=== PATIENT | male | born 1980 | race African-American/Black ===

== ENCOUNTER 2016-10-13 18:06 | Emergency (ER) | payer BC, OTHER ==
--- NOTE | 2016-10-13 20:09 | PHYS DOC ---
Past Medical History Past Medical History: Asthma, Diabetes-Type II Past Surgical History: Other Additional Past Surgical Histo: BACK SURGERY Alcohol Use: None Drug Use: None Adult General Chief Complaint Chief Complaint: OTHER COMPLAINTS [facility] HPI Patient is a 35 year old male who presents with pain and swelling of left foot and ankle over the past week since stepping on something and cutting his foot. He notes initial swelling to foot, but foot is no longer swollen. His ankle is now swollen. Pain is constant, mild. Swelling is worse with standing at work all day and better with elevation at night. He denies f/c, discoloration, numbness, tingling, weakness, wound drainage. Review of Systems Review of Systems Constitutional: Denies fever or chills [] Eyes: Denies change in visual acuity, redness, or eye pain [] HENT: Denies nasal congestion or sore throat [] Respiratory: Denies cough or shortness of breath [] Cardiovascular: No additional information not addressed in HPI [] GI: Denies abdominal pain, nausea, vomiting, bloody stools or diarrhea [] : Denies dysuria or hematuria [] Musculoskeletal: Denies back pain [] Integument: Denies rash or skin lesions [] Neurologic: Denies headache, focal weakness or sensory changes [] Endocrine: Denies polyuria or polydipsia [] Allergies Allergies Allergies Coded Allergies Type Severity Reaction Last Updated Verified No Known Drug Allergies 10/13/16 No Physical Exam Physical Exam Constitutional: Well developed, well nourished, no acute distress, non-toxic appearance. [] HENT: Normocephalic, atraumatic, bilateral external ears normal, oropharynx moist, nose normal. [] Eyes: PERRLA, EOMI. [] Neck: Normal range of motion, supple. [] Cardiovascular:Heart rate regular rhythm [] Lungs & Thorax: Bilateral breath sounds clear to auscultation [] Abdomen: Bowel sounds normal, soft, no tenderness. [] Skin: Warm, dry, no erythema, no rash. [] Back: No tenderness, no CVA tenderness. [] Extremities: LLE with no obvious deformity or discoloration; has 0.5cm laceration to left lateral plantar surface at MTP area with no fluctuance/ drainage/discoloration; has 2+ edema of ankle with no edema of foot with appropriate mild tenderness; Able to flex/ex/IR/ER hip, knee full rom, ankle df/ pf, toes df/pf; sensation intact to light touch; good dp and pt pulses equal bilaterally Neurologic: Alert and oriented X 3, normal motor function, normal sensory function, no focal deficits noted. [] Psychologic: Affect normal, judgement normal, mood normal. [] Current Patient Data Vital Signs Vital Signs Date Time Temp Pulse Resp B/P Pulse Ox O2 Delivery O2 Flow Rate FiO2 10/13/16 20:33 88 168/92 96 Room Air 10/13/16 20:03 22 10/13/16 18:35 98.0 98.0 Radiology/Procedures Radiology/Procedures US LLE venous IMPRESSION No evidence of left lower extremity deep vein thrombosis. Electronically signed by: Aleks Simmons MD (Oct 13, 2016 21:41:10) Course & Med Decision Making Course & Med Decision Making Pertinent Labs and Imaging studies reviewed. (See chart for details) Ultrasound unremarkable. Will treat for likely cellulitis. Return precautions given. He understands and agrees with plan. Dragon Disclaimer Dragon Disclaimer This electronic medical record was generated, in whole or in part, using a voice recognition dictation system. Departure Departure Impression: Primary Impression: Cellulitis Disposition: HOME, SELF-CARE Condition: STABLE Patient Instructions: Cellulitis, [id number] Additional Instructions: Take Bactrim for cellulitis. Take Tylenol or ibuprofen as needed for pain. Follow-up with your primary care doctor within one week. Return for any concerns. Bilateral Scripts Sulfamethoxazole/Trimethoprim (Bactrim Ds Tablet)1 Each Tablet1 Tab PO BID #20 TAB Prov:Danita VEGA MD 10/13/16 Problem Qualifiers Primary Impression: Cellulitis Site of cellulitis: extremity Site of cellulitis of extremity: lower extremity Laterality: left Qualified Code: L03.116 - Cellulitis of left lower limb Danita VEGA MD Oct 13, 2016 20:09
[2016-10-13 20:33] VITALS: BP 168/92
[2016-10-13] MEDS ORDERED: SULF1TAB24 PO (21:43)
--- NOTE | 2016-10-13 21:43 | RAD ---
PROCEDURE: Left Lower extremity venous Doppler ultrasound. HISTORY Cut bottom of foot 1 week ago. Left leg swelling and redness x3 days. COMPARISON None. TECHNIQUE Real-time grayscale, color flow, and Doppler spectral waveform analysis of the deep veins of the lower extremity/ies performed. FINDINGS All visualized vein segments demonstrate normal compressibility and augmentation and color flow. Color flow seen within calf veins. There are lymph nodes in the groin. The largest measures 3.8 x 3.1 x 1.8 cm. This lymph node has benign appearance and does not appear reactive. There is an 8 millimeter short axis diameter lymph node that appears reactive. IMPRESSION No evidence of left lower extremity deep vein thrombosis. Electronically signed by: Aleks Simmons MD (Oct 13, 2016 21:41:10)
== END 2016-10-13 21:56 | disposition home or self-care (01) ==
LOC: ER 18:06
DX: L03.116 Cellulitis of left lower limb (principal); E11.9 Type 2 diabetes mellitus without complications; J45.909 Unspecified asthma, uncomplicated
CPT/HCPCS: 82947; 93971; 99284-25

== ENCOUNTER 2017-06-07 14:22 | Inpatient (IN) | payer BC, OTHER ==
[~2017-06-07] VITALS: Ht 190.5 cm; Wt 150.1 kg
[~2017-06-07 14:22] MED LIST: SULF1TAB24 PO
--- NOTE | 2017-06-07 14:59 | PHYS DOC ---
Past Medical History Past Medical History: Asthma, Diabetes-Type II Past Surgical History: Other Additional Past Surgical Histo: BACK SURGERY Alcohol Use: None Drug Use: None Adult General Chief Complaint Chief Complaint: SHORTNESS OF BREATH HPI HPI Patient is a 36 year old M who presents with chest pain shortness of breath naproxen 4 hours ago. Patient states he stepped on a nail and developed a local wound infection is currently in a cam boot and complains of left calf pain and left thigh pain. Patient states he was driving developed severe shortness of breath and chest pain and cannot catch his breath. Patient is a history of asthma but states she's not wheezing. Patient denies any fevers. Patient denies any nausea/vomiting/diarrhea. Patient is no other complaints. Review of Systems Review of Systems GEN: Denies fevers, chills, sweats HEENT: Denies blurred vision, sore throat CV: Chest pain RESP: Shortness of air GI: Denies n/v/d NEURO: Denies confusion, dizziness MSK: Denies weakness, joint pain/swelling All other systems were reviewed and found to be within normal limits, except as documented in this note. Current Medications Current Medications Current Medications Medications (Trade) Dose Ordered Sig/Mike Start Time Stop Time Status Last Admin Dose Admin Acetaminophen (Tylenol) 650 mg PRN Q4HRS PRN 06/07/17 18:15 06/08/17 18:14 Fentanyl Citrate (Fentanyl 2ml Vial) 50 mcg PRN Q1HR PRN 06/07/17 18:15 06/08/17 18:14 Ibuprofen (Motrin) 800 mg 1X ONCE 06/07/17 16:45 06/07/17 16:48 DC 06/07/17 16:45 800 MG Iohexol (Omnipaque 300 Mg/ml) 75 ml 1X ONCE 06/07/17 17:00 06/07/17 17:03 DC Ondansetron HCl (Zofran) 4 mg PRN Q8HRS PRN 06/07/17 18:15 06/08/17 18:14 Piperacillin Sod/ Tazobactam Sod (Zosyn Per Pharmacy) 1 each PRN DAILY PRN 06/07/17 17:00 UNV Piperacillin Sod/ Tazobactam Sod (Zosyn) 3.375 gm 1X ONCE 06/07/17 17:15 06/07/17 17:16 DC 06/07/17 17:44 3.375 GM Sodium Chloride 1,000 ml @ 125 mls/hr Q8H 06/07/17 18:12 06/08/17 18:11 Vancomycin HCl (Vanco Per Pharmacy) 1 each PRN DAILY PRN 06/07/17 17:00 UNV Vancomycin HCl 2 gm/Dextrose 500 ml @ 250 mls/hr 1X ONCE 06/07/17 17:30 06/07/17 19:29 06/07/17 17:47 250 MLS/HR Allergies Allergies Allergies Coded Allergies Type Severity Reaction Last Updated Verified shellfish derived Allergy Severe Anaphylaxis 06/07/17 Yes Physical Exam Physical Exam GEN.: mod distress. Alert and oriented. HEENT: Head is normocephalic, atraumatic NECK: Supple. LUNGS: Decreased breath sounds bilaterally HEART: Tachycardia, S1, S2 present. Peripheral pulses intact ABDOMEN: Soft, nontender. Positive bowel sounds. EXTREMITIES: Without any cyanosis, tenderness palpation the left calf NEUROLOGIC: Normal speech, normal tone PSYCHIATRIC: Normal affect, normal mood. SKIN: Left foot ulcer on the plantar surface Current Patient Data Vital Signs Vital Signs Date Time Temp Pulse Resp B/P (MAP) Pulse Ox O2 Delivery O2 Flow Rate FiO2 06/07/17 17:30 104 21 164/84 (110) 96 Room Air 06/07/17 14:30 101.0 101.0 Lab Values Laboratory Tests Test 06/07/17 15:45 White Blood Count 13.1 x10^3/uL (4.0-11.0) H Red Blood Count 5.18 x10^6/uL (4.30-5.70) Hemoglobin 13.1 g/dL (13.0-17.5) Hematocrit 40.5 % (39.0-53.0) Mean Corpuscular Volume 78 fL (79-100) L Mean Corpuscular Hemoglobin 25 pg (25-35) Mean Corpuscular Hemoglobin Concent 32 g/dL (31-37) Red Cell Distribution Width 13.6 % (11.5-14.5) Platelet Count 264 x10^3/uL (140-400) Neutrophils (%) (Auto) 85 % (31-73) H Lymphocytes (%) (Auto) 8 % (24-48) L Monocytes (%) (Auto) 6 % (0-9) Eosinophils (%) (Auto) 1 % (0-3) Basophils (%) (Auto) 1 % (0-3) Neutrophils # (Auto) 11.1 x10^3uL (1.8-7.7) H Lymphocytes # (Auto) 1.0 x10^3/uL (1.0-4.8) Monocytes # (Auto) 0.8 x10^3/uL (0.0-1.1) Eosinophils # (Auto) 0.1 x10^3/uL (0.0-0.7) Basophils # (Auto) 0.1 x10^3/uL (0.0-0.2) Sodium Level 135 mmol/L (136-145) L Potassium Level 3.6 mmol/L (3.5-5.1) Chloride Level 98 mmol/L (98-107) Carbon Dioxide Level 26 mmol/L (21-32) Anion Gap 11 (6-14) Blood Urea Nitrogen 14 mg/dL (8-26) Creatinine 1.1 mg/dL (0.7-1.3) Estimated GFR (Cockcroft-Gault) 91.6 BUN/Creatinine Ratio 13 (6-20) Glucose Level 197 mg/dL (70-99) H Lactic Acid Level 1.4 mmol/L (0.4-2.0) Calcium Level 9.9 mg/dL (8.5-10.1) Total Bilirubin 0.6 mg/dL (0.2-1.0) Aspartate Amino Transferase (AST) 14 U/L (15-37) L Alanine Aminotransferase (ALT) 27 U/L (16-63) Alkaline Phosphatase 103 U/L (46-116) Troponin I Quantitative < 0.017 ng/mL (0.000-0.055) Total Protein 8.9 g/dL (6.4-8.2) H Albumin 3.3 g/dL (3.4-5.0) L Albumin/Globulin Ratio 0.6 (1.0-1.7) L Laboratory Tests 06/07/17 15:45 Laboratory Tests 06/07/17 15:45 EKG EKG 1430: Sinus tachycardia rate of 109 no STEMI[] Radiology/Procedures Radiology/Procedures Chest ray NAD X-ray left foot shows no obvious fracture no ostial involvement Sounds left lower extremity shows no DVT CTA chest: No PE Course & Med Decision Making Course & Med Decision Making Pertinent Labs and Imaging studies reviewed. (See chart for details) ED course: Patient was seen and examined emergency room septic workup was ordered along with an ultrasound of the left lower extremity and a CTA of the chest 1800: Updated patient on lab results and radiology results and plan to admit for further evaluation and management of infection in his left foot for possible ostium myelitis 181: Discussed CC/HP/PMH with Dr. Francis and recommends admit [] MDM: After reviewing the chart, CC/HPI/PMH, physical exam, [lab results], [ radiological results], I do not believe the patient has an acute DVT or PE however I believe he potentially has a severe left foot cellulitis and infection and possible osteomyelitis requiring IV antibiotics and admission to hospital for further evaluation and management. [] Dragon Disclaimer Dragon Disclaimer This electronic medical record was generated, in whole or in part, using a voice recognition dictation system. Departure Departure Impression: Primary Impression: Cellulitis of left lower leg Additional Impression: Foot ulcer, left Disposition: ADMITTED INPATIENT Admitting Physician: Fara Francis Condition: STABLE Referrals: NO PCP (PCP) Problem Qualifiers STEFAN LEWIS DO Jun 07, 2017 14:58
[2017-06-07] MEDS ORDERED: IV NORMAL SALINE 1000ML BAG 1,000 ML IV ONE (15:00)
--- NOTE | 2017-06-07 15:12 | RAD ---
Portable chest, 06/07/2017: History: Shortness of breath, fever Comparison is made to a study from 11/07/2011. The depth of inspiration is suboptimal. The heart size and pulmonary vascularity are normal. The lungs are clear. There is no evidence of pleural fluid. IMPRESSION: No acute cardiopulmonary abnormality is detected.
--- NOTE | 2017-06-07 15:15 | EKG ---
[facility] [address] [place] [address] Test Date: 2017-06-07 Test Time: 14:25:34 Pat Name: BAILEY JOHNSON Department: Room: Gender: M National Sales Manager: : 1980 Requested By: STEFAN LEWIS Order Number: [id number] Reading MD: Jaun Moncada MD Measurements Intervals [place] Rate: 109 P: 26 DE: 160 QRS: -4 QRSD: 82 T: 31 QT: 304 QTc: 411 Interpretive Statements SINUS TACHYCARDIA Electronically Signed On 06-07-2017 16:08:21 DISTRICT [employer]ANGER by Jaun Moncada MD
--- NOTE | 2017-06-07 15:46 | RAD ---
Left lower extremity venous ultrasound, 06/07/2017 : History: Left leg swelling and pain with fever Duplex evaluation including grayscale, color flow and spectral Doppler analysis was performed. The femoral and popliteal veins show no filling defects to suggest DVT. The visualized calf veins are unremarkable. There are prominent lymph nodes at the left groin. The largest of these measures 1.5 x 2.3 x 4.6 cm. It has maintained a normal fatty hilum. This may be a reactive node. IMPRESSION: 1. There is no sonographic evidence of deep vein thrombosis in the left lower extremity. 2. Mildly left inguinal adenopathy.
[2017-06-07 15:51] LABS: BASO # 0.1 x10^3/uL (0.0-0.2); BASO % 1 % (0-3); EOS % 1 % (0-3); HEMATOCRIT 40.5 % (39.0-53.0); HEMOGLOBIN 13.1 g/dL (13.0-17.5); LYMPH % 8 % (24-48); MEAN CORPUSCULAR HEMOGLOBIN 25 pg (25-35); MEAN CORPUSCULAR HGB CONC 32 g/dL (31-37); MEAN CORPUSCULAR VOLUME 78 fL (79-100); MONO % 6 % (0-9); NEUT % 85 % (31-73); PLATELET COUNT 264 x10^3/uL (140-400); RED BLOOD COUNT 5.18 x10^6/uL (4.30-5.70); RED CELL DISTRIBUTION WIDTH 13.6 % (11.5-14.5); WHITE BLOOD COUNT 13.1 x10^3/uL (4.0-11.0)
[2017-06-07 16:25] LABS: CALCIUM 9.9 mg/dL (8.5-10.1); CREATININE 1.1 mg/dL (0.7-1.3); GFR 91.6; POTASSIUM 3.6 mmol/L (3.5-5.1)
[2017-06-07 16:33] LABS: ALBUMIN 3.3 g/dL (3.4-5.0); ALBUMIN/GLOBULIN RATIO 0.6 (1.0-1.7); TOTAL BILIRUBIN 0.6 mg/dL (0.2-1.0); TOTAL PROTEIN 8.9 g/dL (6.4-8.2)
[2017-06-07] MEDS ORDERED: IBUPROFEN 800 MG TABLET. PO ONE (16:45)
[2017-06-07] MEDS ORDERED: PIP/TAZO PER PHARMACY MC PRN (17:00)
[2017-06-07] MEDS ORDERED: IOHEXOL 300 MG/ML 100ML VIAL. IV ONE (17:00)
[2017-06-07] MEDS ORDERED: PIPERACILLIN/TAZO IV Push 3.375 GM VIAL. IVP ONE (17:15)
[2017-06-07] MEDS ORDERED: VANCOMYCIN 2 GM in IV DEXTROSE 5% 500 ML IV ONE (17:30)
--- NOTE | 2017-06-07 18:04 | RAD ---
CT ANGIOGRAPHY CHEST dated 06/07/2017 5:11 PM Indication: Shortness of breath, possible pulmonary embolusSOA, ASTHMA, MUPT100 75ML, PRIOR CT CHEST SENT. Comparison: 11/05/2004 Technique: Contiguous axial imaging the chest performed following the intravenous administration of 75 cc Omnipaque 300. Study performed as dedicated PE protocol with thin cut coronal MIPS 3-D reconstruction. One or more of the following individualized dose reduction techniques were utilized for this examination: 1. Automated exposure control 2. Adjustment of the mA and/or kV according to patient size 3. Use of iterative reconstruction technique Findings: Study is somewhat limited due to motion artifact and diminished contrast bolus. No evidence of central, lobar or proximal segmental pulmonary was. Distal segmental and subsegmental branches are not well evaluated based on technique. Heart size within normal limits. No significant pericardial effusion. No mediastinal, hilar or axillary lymphadenopathy. Thyroid gland unremarkable. Central airways are patent. Mild diffuse bronchial wall thickening. There is some linear density in the right lower lobe, likely scar or atelectasis. No pleural effusion. No consolidation or pneumothorax. Limited images of upper abdomen unremarkable. No acute bony abnormality. IMPRESSION: 1. No evidence of central, lobar or proximal segmental pulmonary embolus. 2. Minimal bibasilar scar or atelectasis. Otherwise clear lungs. Electronically signed by: Sharan Medina MD (06/07/2017 6:01 PM) [facility]
[2017-06-07] MEDS ORDERED: fentaNYL PF VIAL 100 MCG/2 ML VIAL IV PRN (18:15)
[2017-06-07] MEDS ORDERED: ACETAMINOPHEN 325 MG TABLET. PO PRN (18:15)
[2017-06-07] MEDS ORDERED: ONDANSETRON PF 4 MG/2 ML VIAL. IV PRN (18:15)
[2017-06-07] MEDS ORDERED: DEXTROSE 50% 25 GM / 50ML DISP.SYRIN. IV PRN (19:15)
[2017-06-07] MEDS: VANCOMYCIN PER PHARMACY MC PRN (19:17)
--- NOTE | 2017-06-07 19:20 | PDOC1 ---
History and Physical Date of Admission Date of Admission DATE: 06/07/17 TIME: 19:07 Identification/Chief Complaint Chief Complaint foot pain, drainage Problems: Source Source: Chart review, Patient History of Present Illness History of Present Illness Mr Geiger is a 36 year old M first seen here in ER 10/13/16 for cellulitis to left foot after an injury, stepped on a nail. Sent home with 10 days of bactrim, given a cam boot and followed in wound care clininc He reports surgical debridement by a doctor in the wound care clinic, and repeated follow up visits, he uses the foot, but wears the cam boot as he was directed, but he has broken one before due to his size, 340lbs today he has new drainage from the foot wound, new left foot redness and swelling up his leg. severe pain to lower leg and up to thigh and groin area. acute dyspnea on admit was marked, and ER doctor did a CT angio with showed no PE, no wheeze, no fever until here T 101 Patient denies any nausea/vomiting/diarrhea. Patient is no other complaints. Past Medical History Cardiovascular: HTN Pulmonary: No pertinent hx GI: No pertinent hx Heme/Onc: No pertinent hx Hepatobiliary: No pertinent hx Psych: No pertinent hx Rheumatologic: No pertinent hx Infectious disease: No pertinent hx Renal/: No pertinent hx Endocrine: Diabetes Dermatology: Cellulitis (foot 10/13/16) Past Surgical History Past Surgical History: No pertinent history Family History Family History: No Significant Social History Smoke: No ALCOHOL: none Drugs: None Current Problem List Problem List Problems Medical Problems: (1) Foot ulcer, left Status: Acute Problems: Current Medications Current Medications Current Medications Sodium Chloride 1,000 ml @ 1,000 mls/hr 1X ONCE IV Last administered on 06/07 16:11; Start 06/07/17 at 15:00; Stop 06/07/17 at 15:59; Status DC Ibuprofen (Motrin) 800 mg 1X ONCE PO Last administered on 06/07/17 16:45; Start 06/07/17 at 16:45; Stop 06/07/17 at 16:48; Status DC Iohexol (Omnipaque 300 Mg/ml) 75 ml 1X ONCE IV ; Start 06/07/17 at 17:00; Stop 06/07/17 at 17:03; Status DC Vancomycin HCl (Vanco Per Pharmacy) 1 each PRN DAILY PRN MC SEE COMMENTS; Start 06/07/17 at 17:00; Status UNV Piperacillin Sod/ Tazobactam Sod (Zosyn Per Pharmacy) 1 each PRN DAILY PRN MC SEE COMMENTS; Start 06/07/17 at 17:00; Status UNV Vancomycin HCl 2 gm/Dextrose 500 ml @ 250 mls/hr 1X ONCE IV Last administered on 06/07/17t 17:47; Start 06/07/17 at 17:30; Stop 06/07/17 at 19 :29 Piperacillin Sod/ Tazobactam Sod (Zosyn) 3.375 gm 1X ONCE IVP Last administered on 06/07/17t 17:44; Start 06/07/17 at 17:15; Stop 06/07/17 at 17 :16; Status DC Ondansetron HCl (Zofran) 4 mg PRN Q8HRS PRN IV NAUSEA/VOMITING; Start at 18:15; Stop 06/08/17 at 18:14 Fentanyl Citrate (Fentanyl 2ml Vial) 50 mcg PRN Q1HR PRN IV PAIN; Start at 18:15; Stop 06/08/17 at 18:14 Sodium Chloride 1,000 ml @ 125 mls/hr Q8H IV ; Start 06/07/17 at 18:12; Stop 06/08/17 at 18:11 Acetaminophen (Tylenol) 650 mg PRN Q4HRS PRN PO FEVER; Start 06/07/17 at 18:15 ; Stop 06/08/17 at 18:14 Albuterol Sulfate (Ventolin Neb Soln) 2.5 mg QID NEB ; Start 06/07/17 at 21:00 Budesonide (Pulmicort) 0.5 mg BID NEB ; Start 06/07/17 at 21:00 Active Scripts Active Bactrim Ds Tablet (Sulfamethoxazole/Trimethoprim) 1 Each Tablet 1 Tab PO BID Allergies Allergies: Coded Allergies: shellfish derived (Verified Allergy, Severe, Anaphylaxis, 06/07/17) ROS General: YES: Chills, Fatigue, Malaise, No: Night Sweats, Appetite, Other PSYCHOLOGICAL ROS: No: Anxiety, Behavioral Disorder, Concentration difficultie , Decreased libido, Depression, Disorientation, Hallucinations, Hostility, Irritablity, Memory difficulties, Mood Swings, Obsessive thoughts, Other Eyes: No Blurry vision, No Decreased vision, No Double vision, No Dry eyes, No Excessive tearing, No Eye Pain, No Itchy Eyes, No Loss of vision, No Photophobia , No Scotomata, No Uses contacts, No Uses glasses, No Other HEENT: No: Heacaches, Visual Changes, Hearing change, Nasal congestion, Nasal discharge, Oral lesions, Sinus pain, Sore Throat, Epistaxis, Sneezing, Snoring, Tinnitus, Vertigo, Vocal changes, Other ENDOCRINE: No: Breast Changes, Galactorrhea, Hair Pattern Changes, Hot Flashes , Malaise/lethargy, Mood Swings, Palpitations, Polydipsia/polyuria, Skin Changes , Temperature Intolerance, Unexpected Weight Changes, Other Respiratory: YES: Shortness of breath, SOB with excertion, Tachypnea, No: Cough, Hemoptysis, Orthopnea, Pleuritic Pain, Sputum Changes, Stridor, Wheezing, Other Cardiovascular: No Chest Pain, No Palpitations, No Orthopnea, No Paroxysmal Noc. Dyspnea, No Edema, No Lt Headedness, No Other Gastrointestinal: No Nausea, No Vomiting, No Abdominal Pain, No Diarrhea, No Constipation, No Melena, No Hematochezia, No Other Genitourinary: No Dysuria, No Frequency, No Incontinence, No Hematuria, No Retention, No Discharge, No Urgency, No Pain, No Flank Pain, No Other, No , No , No , No , No , No , No Musculoskeletal: Yes Gait Disturbance, Yes Joint Pain, Yes Joint Stiffness, Yes Pain In: (foot and leg) Neurological: Yes Gait Disturbance, No Behavorial Changes, No Bowel/Bladder ControlChng, No Confusion, No Dizziness, No Headaches, No Impaired Coord/balance, No Memory Loss, No Numbness/ Tingling, No Seizures, No Speech Problems, No Tremors, No Visual Changes, No Weakness, No Other Skin: No Dry Skin, No Eczema, No Hair Changes, No Lumps, No Mole Changes, No Mottling, No Nail Changes, No Pruritus, No Rash, No Skin Lesion Changes, No Other, No Acne Physical Exam General: Alert, Oriented X3, Cooperative, mild distress HEENT: Mucous membr. moist/pink Lungs: Clear to auscultation, Normal air movement Heart: S1S2, RRR, no gallops, no murmurs Abdomen: Normal bowel sounds, Soft (mildly obese, ) Rectal Exam: not examined Extremities: No clubbing, No cyanosis, Normal pulses, Other (1+ edema, LLE, ) Skin: Other (plantar foot with open area of prior debridement with small hole in lateral area of plantar aspect of foot, erythema and tenderness) Neuro: Normal speech, Sensation intact, Cranial nerves 3-12 NL Psych/Mental Status: Mental status NL, Mood NL Vitals Vitals Vital Signs Date Time Temp Pulse Resp B/P (MAP) Pulse Ox O2 Delivery O2 Flow Rate FiO2 06/07/17 17:30 104 21 164/84 (110) 96 Room Air 06/07/17 14:30 101.0 101.0 Labs Labs Laboratory Tests Test 06/07/17 15:45 White Blood Count 13.1 x10^3/uL (4.0-11.0) Red Blood Count 5.18 x10^6/uL (4.30-5.70) Hemoglobin 13.1 g/dL (13.0-17.5) Hematocrit 40.5 % (39.0-53.0) Mean Corpuscular Volume 78 fL (79-100) Mean Corpuscular Hemoglobin 25 pg (25-35) Mean Corpuscular Hemoglobin Concent 32 g/dL (31-37) Red Cell Distribution Width 13.6 % (11.5-14.5) Platelet Count 264 x10^3/uL (140-400) Neutrophils (%) (Auto) 85 % (31-73) Lymphocytes (%) (Auto) 8 % (24-48) Monocytes (%) (Auto) 6 % (0-9) Eosinophils (%) (Auto) 1 % (0-3) Basophils (%) (Auto) 1 % (0-3) Neutrophils # (Auto) 11.1 x10^3uL (1.8-7.7) Lymphocytes # (Auto) 1.0 x10^3/uL (1.0-4.8) Monocytes # (Auto) 0.8 x10^3/uL (0.0-1.1) Eosinophils # (Auto) 0.1 x10^3/uL (0.0-0.7) Basophils # (Auto) 0.1 x10^3/uL (0.0-0.2) Sodium Level 135 mmol/L (136-145) Potassium Level 3.6 mmol/L (3.5-5.1) Chloride Level 98 mmol/L (98-107) Carbon Dioxide Level 26 mmol/L (21-32) Anion Gap 11 (6-14) Blood Urea Nitrogen 14 mg/dL (8-26) Creatinine 1.1 mg/dL (0.7-1.3) Estimated GFR (Cockcroft-Gault) 91.6 BUN/Creatinine Ratio 13 (6-20) Glucose Level 197 mg/dL (70-99) Lactic Acid Level 1.4 mmol/L (0.4-2.0) Calcium Level 9.9 mg/dL (8.5-10.1) Total Bilirubin 0.6 mg/dL (0.2-1.0) Aspartate Amino Transf (AST/SGOT) 14 U/L (15-37) Alanine Aminotransferase (ALT/SGPT) 27 U/L (16-63) Alkaline Phosphatase 103 U/L (46-116) Troponin I Quantitative < 0.017 ng/mL (0.000-0.055) Total Protein 8.9 g/dL (6.4-8.2) Albumin 3.3 g/dL (3.4-5.0) Albumin/Globulin Ratio 0.6 (1.0-1.7) Laboratory Tests Test 06/07/17 15:45 White Blood Count 13.1 x10^3/uL (4.0-11.0) Red Blood Count 5.18 x10^6/uL (4.30-5.70) Hemoglobin 13.1 g/dL (13.0-17.5) Hematocrit 40.5 % (39.0-53.0) Mean Corpuscular Volume 78 fL (79-100) Mean Corpuscular Hemoglobin 25 pg (25-35) Mean Corpuscular Hemoglobin Concent 32 g/dL (31-37) Red Cell Distribution Width 13.6 % (11.5-14.5) Platelet Count 264 x10^3/uL (140-400) Neutrophils (%) (Auto) 85 % (31-73) Lymphocytes (%) (Auto) 8 % (24-48) Monocytes (%) (Auto) 6 % (0-9) Eosinophils (%) (Auto) 1 % (0-3) Basophils (%) (Auto) 1 % (0-3) Neutrophils # (Auto) 11.1 x10^3uL (1.8-7.7) Lymphocytes # (Auto) 1.0 x10^3/uL (1.0-4.8) Monocytes # (Auto) 0.8 x10^3/uL (0.0-1.1) Eosinophils # (Auto) 0.1 x10^3/uL (0.0-0.7) Basophils # (Auto) 0.1 x10^3/uL (0.0-0.2) Sodium Level 135 mmol/L (136-145) Potassium Level 3.6 mmol/L (3.5-5.1) Chloride Level 98 mmol/L (98-107) Carbon Dioxide Level 26 mmol/L (21-32) Anion Gap 11 (6-14) Blood Urea Nitrogen 14 mg/dL (8-26) Creatinine 1.1 mg/dL (0.7-1.3) Estimated GFR (Cockcroft-Gault) 91.6 BUN/Creatinine Ratio 13 (6-20) Glucose Level 197 mg/dL (70-99) Lactic Acid Level 1.4 mmol/L (0.4-2.0) Calcium Level 9.9 mg/dL (8.5-10.1) Total Bilirubin 0.6 mg/dL (0.2-1.0) Aspartate Amino Transf (AST/SGOT) 14 U/L (15-37) Alanine Aminotransferase (ALT/SGPT) 27 U/L (16-63) Alkaline Phosphatase 103 U/L (46-116) Troponin I Quantitative < 0.017 ng/mL (0.000-0.055) Total Protein 8.9 g/dL (6.4-8.2) Albumin 3.3 g/dL (3.4-5.0) Albumin/Globulin Ratio 0.6 (1.0-1.7) VTE Prophylaxis Ordered VTE Prophylaxis Devices: No VTE Pharmacological Prophylaxi: Yes Assessment/Plan Assessment/Plan left foot plantar wound, has been debrided in wound care clinic, and tried to manage there, but today, acute pain, swelling and redness with discharge cellulitis, and abcess, plantar foot, wound present there for almost 8 mos. Ortho has been consulted, I am worried about vascular viability, and have ordered a AMEE, but maybe a vascular consult and a CT runoff may be beneficial before surgery, however, he has shellfish allergy, and DM2 with large insulin requirements sepsis, fever, tachycardia, tachypnea, leukocytosis, IV fluid, given, vitals improved, consult ID, Vanc and zosyn given morbid obesity, BMI 42 hypoalbumin from sepsis, Dm2, on 50 NPH and 40 R with meals, will try to change to levemir and aspart, left leg pain, pain to thigh, noted lymphadenopathy on US, no DVT TONG KUO MD Jun 07, 2017 19:19
[2017-06-07] MEDS: BUDESONIDE 0.5 MG/2 ML NEBU. NEB SCH (21:45)
[2017-06-07] MEDS: ALBUTEROL SULFATE 2.5 MG/3 ML NEBU. NEB SCH (21:45)
[2017-06-07] MEDS: ATORVASTATIN CALCIUM 10 MG TABLET. PO SCH (22:08)
[2017-06-07] MEDS: INSULIN DETEMIR 300 UNITS/3 ML INSULN.PEN. SQ SCH (22:08)
[2017-06-07] MEDS: IV NORMAL SALINE 1000ML BAG 1,000 ML IV SCH (22:09)
--- NOTE | 2017-06-07 22:16 | RAD ---
Ultrasound arterial INDICATION: Left nonhealing ulcer, swelling. TECHNIQUE: Grayscale, color Doppler and spectral waveform ultrasound images of the left lower extremity arteries obtained COMPARISON: None FINDINGS: Multiple enlarged groin lymph nodes noted, the largest measuring 4.9 x 4.2 x 1.6 cm. Triphasic waveform is seen in the [employer] with peak velocity of 115 cm/s. Biphasic waveform is seen in the profunda femoris artery. Peak systolic velocity of 85 cm/s. Triphasic waveform seen in the proximal SFA with peak systolic velocity of 106 cm/s. Triphasic waveform seen in the mid SFA with peak systolic velocity of 104 cm/s. Triphasic waveform seen in the distal SFA with peak systolic velocity of 137 cm/s. Triphasic waveform seen in the popliteal artery with peak systolic velocity of 122 cm/s. Triphasic waveform seen in the anterior tibial artery with peak systolic velocity of 60 cm/s. Biphasic waveforms seen in the distal posterior tibial artery with peak systolic velocity of 81 cm/s. Triphasic waveform is seen in the proximal posterior tibial artery with peak systolic velocity of 79 cm/s. Triphasic waveform is seen in the dorsalis pedis artery with peak systolic velocity of 129 cm/s. Diffuse edema of the left lower extremity noted. IMPRESSION: 1. Mild infrapopliteal atherosclerotic disease without high-grade stenosis. 2. Enlarged inguinal adenopathy, likely reactive if patient has leg infection. Lymphoma or metastatic disease is not ruled out.. Electronically signed by: Robert Hill DO (06/07/2017 10:12 PM) [facility]
[2017-06-07] MEDS: PIPERACILLIN/TAZO IV Push 3.375 GM VIAL. IVP SCH (22:43)
[2017-06-07 23:00] VITALS: BP 122/86
[2017-06-08 03:00] VITALS: BP 152/103
[2017-06-08] MEDS: PIPERACILLIN/TAZO IV Push 3.375 GM VIAL. IVP SCH ×2 (05:20→12:20)
[2017-06-08] MEDS: VANCOMYCIN 2 GM in IV DEXTROSE 5% 500 ML IV SCH ×2 (05:21→17:33)
[2017-06-08] MEDS: IV NORMAL SALINE 1000ML BAG 1,000 ML IV SCH ×2 (05:26→12:20)
[2017-06-08 05:40] LABS: BASO # 0.1 x10^3/uL (0.0-0.2); BASO % 0 % (0-3); EOS % 2 % (0-3); HEMATOCRIT 36.8 % (39.0-53.0); HEMOGLOBIN 11.8 g/dL (13.0-17.5); LYMPH # 1.8 x10^3/uL (1.0-4.8); LYMPH % 14 % (24-48); MEAN CORPUSCULAR HEMOGLOBIN 25 pg (25-35); MEAN CORPUSCULAR HGB CONC 32 g/dL (31-37); MEAN CORPUSCULAR VOLUME 79 fL (79-100); MONO % 8 % (0-9); NEUT % 76 % (31-73); PLATELET COUNT 230 x10^3/uL (140-400); RED BLOOD COUNT 4.68 x10^6/uL (4.30-5.70); RED CELL DISTRIBUTION WIDTH 13.8 % (11.5-14.5); WHITE BLOOD COUNT 13.3 x10^3/uL (4.0-11.0)
[2017-06-08 06:02] LABS: CREATININE 0.9 mg/dL (0.7-1.3); GFR 115.5; POTASSIUM 3.5 mmol/L (3.5-5.1)
[2017-06-08 07:00] VITALS: BP 156/94
[2017-06-08] MEDS: BUDESONIDE 0.5 MG/2 ML NEBU. NEB SCH ×2 (07:24→20:05)
[2017-06-08] MEDS: ALBUTEROL SULFATE 2.5 MG/3 ML NEBU. NEB SCH ×4 (07:24→20:05)
--- NOTE | 2017-06-08 07:32 | RAD ---
3 views left foot radiograph 06/07/2017 Clinical indication: Open wound plantar surface of the left foot. Comparison: None. Findings: There is diffuse soft tissue swelling throughout the ankle and foot. There is a soft tissue defect at the plantar aspect of the forefoot with underlying soft tissue gas. There is cortical irregularity and osteolysis at the fifth metatarsal distal shaft and neck. No acute fracture or traumatic malalignment. Joint spaces are maintained. Impression: 1. Lateral plantar soft tissue defect with underlying gas and focal osteolysis of the distal fifth metatarsal concerning for osteomyelitis. 2. Diffuse ankle and foot soft tissue swelling may represent cellulitis. If further evaluation is clinically indicated, MRI is more sensitive. These results were discussed with Dr. Olson of the emergency service by telephone at 7:25 AM 06/08/[address] Robert Hickey.
[2017-06-08] MEDS: INSULIN ASPART 300 UNITS/3 ML INSULN.PEN SQ SCH ×6 (08:00→16:31)
[2017-06-08] MEDS: LISINOPRIL 10 MG TABLET PO SCH (08:18)
[2017-06-08 08:47] LABS: % SAT IRON 13 % (15-34); IRON,SERUM 26 ug/dL (65-175)
[2017-06-08 11:00] VITALS: BP 161/75
[2017-06-08] MEDS: VANCOMYCIN PER PHARMACY MC PRN (13:10)
--- NOTE | 2017-06-08 13:46 | PDOC ---
Infectious Disease Note ROS ROS Vital Sign Vital Signs Vital Signs Date Time Temp Pulse Resp B/P (MAP) Pulse Ox O2 Delivery O2 Flow Rate FiO2 06/08/17 11:06 Room Air 06/08/17 11:00 98.8 91 18 161/75 (103) 100 98.8 Labs Lab Laboratory Tests Test 06/07/17 15:45 06/07/17 20:30 06/07/17 20:36 06/08/17 04:00 White Blood Count 13.1 x10^3/uL (4.0-11.0) 13.3 x10^3/uL (4.0-11.0) Red Blood Count 5.18 x10^6/uL (4.30-5.70) 4.68 x10^6/uL (4.30-5.70) Hemoglobin 13.1 g/dL (13.0-17.5) 11.8 g/dL (13.0-17.5) Hematocrit 40.5 % (39.0-53.0) 36.8 % (39.0-53.0) Mean Corpuscular Volume 78 fL (79-100) 79 fL (79-100) Mean Corpuscular Hemoglobin 25 pg (25-35) 25 pg (25-35) Mean Corpuscular Hemoglobin Concent 32 g/dL (31-37) 32 g/dL (31-37) Red Cell Distribution Width 13.6 % (11.5-14.5) 13.8 % (11.5-14.5) Platelet Count 264 x10^3/uL (140-400) 230 x10^3/uL (140-400) Neutrophils (%) (Auto) 85 % (31-73) 76 % (31-73) Lymphocytes (%) (Auto) 8 % (24-48) 14 % (24-48) Monocytes (%) (Auto) 6 % (0-9) 8 % (0-9) Eosinophils (%) (Auto) 1 % (0-3) 2 % (0-3) Basophils (%) (Auto) 1 % (0-3) 0 % (0-3) Neutrophils # (Auto) 11.1 x10^3uL (1.8-7.7) 10.1 x10^3uL (1.8-7.7) Lymphocytes # (Auto) 1.0 x10^3/uL (1.0-4.8) 1.8 x10^3/uL (1.0-4.8) Monocytes # (Auto) 0.8 x10^3/uL (0.0-1.1) 1.1 x10^3/uL (0.0-1.1) Eosinophils # (Auto) 0.1 x10^3/uL (0.0-0.7) 0.2 x10^3/uL (0.0-0.7) Basophils # (Auto) 0.1 x10^3/uL (0.0-0.2) 0.1 x10^3/uL (0.0-0.2) Sodium Level 135 mmol/L (136-145) Potassium Level 3.6 mmol/L (3.5-5.1) Chloride Level 98 mmol/L (98-107) Carbon Dioxide Level 26 mmol/L (21-32) Anion Gap 11 (6-14) Blood Urea Nitrogen 14 mg/dL (8-26) Creatinine 1.1 mg/dL (0.7-1.3) Estimated GFR (Cockcroft-Gault) 91.6 BUN/Creatinine Ratio 13 (6-20) Glucose Level 197 mg/dL (70-99) Lactic Acid Level 1.4 mmol/L (0.4-2.0) 1.1 mmol/L (0.4-2.0) Calcium Level 9.9 mg/dL (8.5-10.1) Total Bilirubin 0.6 mg/dL (0.2-1.0) Aspartate Amino Transf (AST/SGOT) 14 U/L (15-37) Alanine Aminotransferase (ALT/SGPT) 27 U/L (16-63) Alkaline Phosphatase 103 U/L (46-116) Troponin I Quantitative < 0.017 ng/mL (0.000-0.055) Total Protein 8.9 g/dL (6.4-8.2) Albumin 3.3 g/dL (3.4-5.0) Albumin/Globulin Ratio 0.6 (1.0-1.7) Glucose (Fingerstick) 165 mg/dL (70-99) Test 06/08/17 04:45 06/08/17 07:30 06/08/17 08:00 06/08/17 11:37 Sodium Level 136 mmol/L (136-145) Potassium Level 3.5 mmol/L (3.5-5.1) Chloride Level 99 mmol/L (98-107) Carbon Dioxide Level 26 mmol/L (21-32) Anion Gap 11 (6-14) Blood Urea Nitrogen 12 mg/dL (8-26) Creatinine 0.9 mg/dL (0.7-1.3) Estimated GFR (Cockcroft-Gault) 115.5 Glucose Level 167 mg/dL (70-99) Calcium Level 9.0 mg/dL (8.5-10.1) Glucose (Fingerstick) 206 mg/dL (70-99) 104 mg/dL (70-99) Iron Level 26 ug/dL (65-175) Total Iron Binding Capacity 194 ug/dL (250-450) Iron Saturation 13 % (15-34) Objective Assessment Left plantar foot wound Left third toe infection DM Fever Plan Plan of Care Culture from 3 rd toe obtained increase Zosyn Add Diflucan Cont vanc MRI foot Arterial dopplers f/u labs and cults Elevation Thank you D/w mother # [id number] EKTA NESBITT MD Jun 08, 2017 13:46
[2017-06-08] MEDS: PIPERACILLIN/TAZO IV Push 4.5 GM VIAL. IVP SCH ×2 (14:32→17:33)
[2017-06-08] MEDS: FLUCONAZOLE 100 MG TABLET. PO SCH (14:32)
--- NOTE | 2017-06-08 14:46 | PDOC2 ---
CONSULT Date of Consult Date of Consult DATE: 06/08/17 TIME: 14:35 Reason for Consult Reason for Consult: left foot wound Referring Physician Referring Physician: Tito Identification/Chief Complaint Chief Complaint left foot pain with wound Problems: Source Source: Chart review, Patient History of Present Illness Reason for Visit: The patient is a 36 year old male patient here with a left forefoot plantar wound. He states he stepped on a nail in September and presented to the [facility] ER on . At that time, he was given oral antibiotics and instructions to followup with wound care. He states he has been to the wound care clinic about 6-7 times and has had limited debridements. He states he has also been to three emergency rooms for treatment. He presented to the ER yesterday because he noticed his wound worsening with increased drainage. He was febrile on arrival. Past Medical History Cardiovascular: HTN Pulmonary: No pertinent hx CENTRAL NERVOUS SYSTEM: Periperal neuropathy GI: No pertinent hx Heme/Onc: No pertinent hx Hepatobiliary: No pertinent hx Psych: No pertinent hx Rheumatologic: No pertinent hx Infectious disease: No pertinent hx Renal/: No pertinent hx Endocrine: Diabetes Dermatology: Cellulitis Past Surgical History Past Surgical History: No pertinent history Family History Family History: No Significant Social History No ALCOHOL: none Drugs: None Current Problem List Problem List Problems Medical Problems: (1) Foot ulcer, left Status: Acute Current Medications Current Medications Current Medications Sodium Chloride 1,000 ml @ 1,000 mls/hr 1X ONCE IV Last administered on 06/07 16:11; Start 06/07/17 at 15:00; Stop 06/07/17 at 15:59; Status DC Ibuprofen (Motrin) 800 mg 1X ONCE PO Last administered on 06/07/17 16:45; Start 06/07/17 at 16:45; Stop 06/07/17 at 16:48; Status DC Iohexol (Omnipaque 300 Mg/ml) 75 ml 1X ONCE IV ; Start 06/07/17 at 17:00; Stop 06/07/17 at 17:03; Status DC Vancomycin HCl (Vanco Per Pharmacy) 1 each PRN DAILY PRN MC SEE COMMENTS Last administered on 06/08/17 13:10; Start 06/07/17 at 17:00 Piperacillin Sod/ Tazobactam Sod (Zosyn Per Pharmacy) 1 each PRN DAILY PRN MC SEE COMMENTS; Start 06/07/17 at 17:00; Status UNV Vancomycin HCl 2 gm/Dextrose 500 ml @ 250 mls/hr 1X ONCE IV Last administered on 06/07/17 17:47; Start 06/07/17 at 17:30; Stop 06/07/17 at 19 :29; Status DC Piperacillin Sod/ Tazobactam Sod (Zosyn) 3.375 gm 1X ONCE IVP Last administered on 06/07/17 17:44; Start 06/07/17 at 17:15; Stop 06/07/17 at 17 :16; Status DC Ondansetron HCl (Zofran) 4 mg PRN Q8HRS PRN IV NAUSEA/VOMITING; Start at 18:15; Stop 06/08/17 at 18:14 Fentanyl Citrate (Fentanyl 2ml Vial) 50 mcg PRN Q1HR PRN IV PAIN; Start at 18:15; Stop 06/08/17 at 18:14 Sodium Chloride 1,000 ml @ 125 mls/hr Q8H IV Last administered on 06/08/17 12:20; Start 06/07/17 at 18:12; Stop 06/08/17 at 18:11 Acetaminophen (Tylenol) 650 mg PRN Q4HRS PRN PO FEVER; Start 06/07/17 at 18:15 ; Stop 06/08/17 at 18:14 Albuterol Sulfate (Ventolin Neb Soln) 2.5 mg QID NEB Last administered on 06/08 11:05; Start 06/07/17 at 21:00 Budesonide (Pulmicort) 0.5 mg BID NEB Last administered on 06/08/17 07:24; Start 06/07/17 at 21:00 Enoxaparin Sodium (Lovenox Per Pharmacy Prophylaxis Dosing) 1 each PRN DAILY PRN MC SEE COMMENTS; Start 06/07/17 at 19:15; Status UNV Oxycodone HCl (Roxicodone) 5 mg PRN Q4HRS PRN PO pain; Start 06/07/17 at 19:15 Zolpidem Tartrate (Ambien) 5 mg PRN QHS PRN PO INSOMNIA; Start 06/07/17 at 19: 15 Piperacillin Sod/ Tazobactam Sod (Zosyn) 3.375 gm Q6HRS IVP Last administered on 06/08/17 12:20; Start 06/08/17 at 00:00; Stop 06/08/17 at 13:47; Status DC Lisinopril (Prinivil) 10 mg DAILY PO Last administered on 06/08/17 08:18; Start 06/08/17 at 09:00 Atorvastatin Calcium (Lipitor) 10 mg QHS PO Last administered on 06/07/17 22: 08; Start 06/07/17 at 21:00 Insulin Detemir (Levemir) 40 units QHS SQ Last administered on 06/07/17 22:08 ; Start 06/07/17 at 21:00 Insulin Aspart (NovoLOG) 30 units TIDAC SQ Last administered on 06/08/17 12: 30; Start 06/08/17 at 07:30 Insulin Aspart (NovoLOG) 0-9 UNITS TIDWMEALS SQ Last administered on 08:00; Start 06/08/17 at 08:00 Dextrose (Dextrose 50%-Water Syringe) 12.5 gm PRN Q15MIN PRN IV SEE COMMENTS; Start 06/07/17 at 19:15 Vancomycin HCl 2 gm/Dextrose 500 ml @ 250 mls/hr Q12H IV Last administered on 06/08/17 05:21; Start 06/08/17 at 06:00 Vancomycin HCl 1 each 1X ONCE MC ; Start 06/09/17 at 05:30; Stop 06/09/17 at 05:31 Piperacillin Sod/ Tazobactam Sod 4.5 gm/Dextrose 100 ml @ 200 mls/hr Q6HRS IV ; Start 06/08/17 at 18:00; Stop 06/08/17 at 18:00; Status DC Fluconazole (Diflucan) 200 mg DAILY PO ; Start 06/08/17 at 13:45 Piperacillin Sod/ Tazobactam Sod (Zosyn) 4.5 gm Q6HRS IVP ; Start 06/08/17 at 13:45 Active Scripts Active Bactrim Ds Tablet (Sulfamethoxazole/Trimethoprim) 1 Each Tablet 1 Tab PO BID Allergies Allergies: Coded Allergies: shellfish derived (Verified Allergy, Severe, Anaphylaxis, 06/07/17) metformin (Verified Allergy, Intermediate, 06/07/17) Physical Exam General: Alert, Oriented X3, Cooperative, No acute distress HEENT: Atraumatic, EOMI Lungs: Normal air movement Heart: Regular rate Abdomen: Soft Extremities: No clubbing, No cyanosis, Normal pulses, Other (Trace edema to bilateral lower extremities ) Skin: No rashes Neuro: Normal speech, Sensation intact Psych/Mental Status: Mental status NL, Mood NL MUSCULOSKELETAL: Other (There is a wound of the plantar surface of the forefoot , over the fifth metatarsal. Foul smelling. No active drainage that is observed. Range of motion is intact at foot and ankle. Calf soft and nontender with no evidence of DVT. Peripheral pulses intact. Light touch sensation diminished due to peripheral neuropathy. ) Vitals VITALS Vital Signs Date Time Temp Pulse Resp B/P (MAP) Pulse Ox O2 Delivery O2 Flow Rate FiO2 06/08/17 11:06 Room Air 06/08/17 11:00 98.8 91 18 161/75 (103) 100 98.8 Labs Labs Laboratory Tests Test 06/07/17 15:45 06/07/17 20:30 06/07/17 20:36 06/08/17 04:00 White Blood Count 13.1 x10^3/uL (4.0-11.0) 13.3 x10^3/uL (4.0-11.0) Red Blood Count 5.18 x10^6/uL (4.30-5.70) 4.68 x10^6/uL (4.30-5.70) Hemoglobin 13.1 g/dL (13.0-17.5) 11.8 g/dL (13.0-17.5) Hematocrit 40.5 % (39.0-53.0) 36.8 % (39.0-53.0) Mean Corpuscular Volume 78 fL (79-100) 79 fL (79-100) Mean Corpuscular Hemoglobin 25 pg (25-35) 25 pg (25-35) Mean Corpuscular Hemoglobin Concent 32 g/dL (31-37) 32 g/dL (31-37) Red Cell Distribution Width 13.6 % (11.5-14.5) 13.8 % (11.5-14.5) Platelet Count 264 x10^3/uL (140-400) 230 x10^3/uL (140-400) Neutrophils (%) (Auto) 85 % (31-73) 76 % (31-73) Lymphocytes (%) (Auto) 8 % (24-48) 14 % (24-48) Monocytes (%) (Auto) 6 % (0-9) 8 % (0-9) Eosinophils (%) (Auto) 1 % (0-3) 2 % (0-3) Basophils (%) (Auto) 1 % (0-3) 0 % (0-3) Neutrophils # (Auto) 11.1 x10^3uL (1.8-7.7) 10.1 x10^3uL (1.8-7.7) Lymphocytes # (Auto) 1.0 x10^3/uL (1.0-4.8) 1.8 x10^3/uL (1.0-4.8) Monocytes # (Auto) 0.8 x10^3/uL (0.0-1.1) 1.1 x10^3/uL (0.0-1.1) Eosinophils # (Auto) 0.1 x10^3/uL (0.0-0.7) 0.2 x10^3/uL (0.0-0.7) Basophils # (Auto) 0.1 x10^3/uL (0.0-0.2) 0.1 x10^3/uL (0.0-0.2) Sodium Level 135 mmol/L (136-145) Potassium Level 3.6 mmol/L (3.5-5.1) Chloride Level 98 mmol/L (98-107) Carbon Dioxide Level 26 mmol/L (21-32) Anion Gap 11 (6-14) Blood Urea Nitrogen 14 mg/dL (8-26) Creatinine 1.1 mg/dL (0.7-1.3) Estimated GFR (Cockcroft-Gault) 91.6 BUN/Creatinine Ratio 13 (6-20) Glucose Level 197 mg/dL (70-99) Lactic Acid Level 1.4 mmol/L (0.4-2.0) 1.1 mmol/L (0.4-2.0) Calcium Level 9.9 mg/dL (8.5-10.1) Total Bilirubin 0.6 mg/dL (0.2-1.0) Aspartate Amino Transf (AST/SGOT) 14 U/L (15-37) Alanine Aminotransferase (ALT/SGPT) 27 U/L (16-63) Alkaline Phosphatase 103 U/L (46-116) Troponin I Quantitative < 0.017 ng/mL (0.000-0.055) Total Protein 8.9 g/dL (6.4-8.2) Albumin 3.3 g/dL (3.4-5.0) Albumin/Globulin Ratio 0.6 (1.0-1.7) Glucose (Fingerstick) 165 mg/dL (70-99) Test 06/08/17 04:45 06/08/17 07:30 06/08/17 08:00 06/08/17 11:37 Sodium Level 136 mmol/L (136-145) Potassium Level 3.5 mmol/L (3.5-5.1) Chloride Level 99 mmol/L (98-107) Carbon Dioxide Level 26 mmol/L (21-32) Anion Gap 11 (6-14) Blood Urea Nitrogen 12 mg/dL (8-26) Creatinine 0.9 mg/dL (0.7-1.3) Estimated GFR (Cockcroft-Gault) 115.5 Glucose Level 167 mg/dL (70-99) Calcium Level 9.0 mg/dL (8.5-10.1) Glucose (Fingerstick) 206 mg/dL (70-99) 104 mg/dL (70-99) Iron Level 26 ug/dL (65-175) Total Iron Binding Capacity 194 ug/dL (250-450) Iron Saturation 13 % (15-34) Laboratory Tests Test 06/07/17 15:45 06/07/17 20:30 06/07/17 20:36 06/08/17 04:00 White Blood Count 13.1 x10^3/uL (4.0-11.0) 13.3 x10^3/uL (4.0-11.0) Red Blood Count 5.18 x10^6/uL (4.30-5.70) 4.68 x10^6/uL (4.30-5.70) Hemoglobin 13.1 g/dL (13.0-17.5) 11.8 g/dL (13.0-17.5) Hematocrit 40.5 % (39.0-53.0) 36.8 % (39.0-53.0) Mean Corpuscular Volume 78 fL (79-100) 79 fL (79-100) Mean Corpuscular Hemoglobin 25 pg (25-35) 25 pg (25-35) Mean Corpuscular Hemoglobin Concent 32 g/dL (31-37) 32 g/dL (31-37) Red Cell Distribution Width 13.6 % (11.5-14.5) 13.8 % (11.5-14.5) Platelet Count 264 x10^3/uL (140-400) 230 x10^3/uL (140-400) Neutrophils (%) (Auto) 85 % (31-73) 76 % (31-73) Lymphocytes (%) (Auto) 8 % (24-48) 14 % (24-48) Monocytes (%) (Auto) 6 % (0-9) 8 % (0-9) Eosinophils (%) (Auto) 1 % (0-3) 2 % (0-3) Basophils (%) (Auto) 1 % (0-3) 0 % (0-3) Neutrophils # (Auto) 11.1 x10^3uL (1.8-7.7) 10.1 x10^3uL (1.8-7.7) Lymphocytes # (Auto) 1.0 x10^3/uL (1.0-4.8) 1.8 x10^3/uL (1.0-4.8) Monocytes # (Auto) 0.8 x10^3/uL (0.0-1.1) 1.1 x10^3/uL (0.0-1.1) Eosinophils # (Auto) 0.1 x10^3/uL (0.0-0.7) 0.2 x10^3/uL (0.0-0.7) Basophils # (Auto) 0.1 x10^3/uL (0.0-0.2) 0.1 x10^3/uL (0.0-0.2) Sodium Level 135 mmol/L (136-145) Potassium Level 3.6 mmol/L (3.5-5.1) Chloride Level 98 mmol/L (98-107) Carbon Dioxide Level 26 mmol/L (21-32) Anion Gap 11 (6-14) Blood Urea Nitrogen 14 mg/dL (8-26) Creatinine 1.1 mg/dL (0.7-1.3) Estimated GFR (Cockcroft-Gault) 91.6 BUN/Creatinine Ratio 13 (6-20) Glucose Level 197 mg/dL (70-99) Lactic Acid Level 1.4 mmol/L (0.4-2.0) 1.1 mmol/L (0.4-2.0) Calcium Level 9.9 mg/dL (8.5-10.1) Total Bilirubin 0.6 mg/dL (0.2-1.0) Aspartate Amino Transf (AST/SGOT) 14 U/L (15-37) Alanine Aminotransferase (ALT/SGPT) 27 U/L (16-63) Alkaline Phosphatase 103 U/L (46-116) Troponin I Quantitative < 0.017 ng/mL (0.000-0.055) Total Protein 8.9 g/dL (6.4-8.2) Albumin 3.3 g/dL (3.4-5.0) Albumin/Globulin Ratio 0.6 (1.0-1.7) Glucose (Fingerstick) 165 mg/dL (70-99) Test 06/08/17 04:45 06/08/17 07:30 06/08/17 08:00 06/08/17 11:37 Sodium Level 136 mmol/L (136-145) Potassium Level 3.5 mmol/L (3.5-5.1) Chloride Level 99 mmol/L (98-107) Carbon Dioxide Level 26 mmol/L (21-32) Anion Gap 11 (6-14) Blood Urea Nitrogen 12 mg/dL (8-26) Creatinine 0.9 mg/dL (0.7-1.3) Estimated GFR (Cockcroft-Gault) 115.5 Glucose Level 167 mg/dL (70-99) Calcium Level 9.0 mg/dL (8.5-10.1) Glucose (Fingerstick) 206 mg/dL (70-99) 104 mg/dL (70-99) Iron Level 26 ug/dL (65-175) Total Iron Binding Capacity 194 ug/dL (250-450) Iron Saturation 13 % (15-34) Images Images Foot x-ray images and report were reviewed. No fracture, dislocation, or acute bony finding. Soft tissue defect at the plantar forefoot with underlying soft tissue gas associated soft tissue gas. Cortical irregularity and osteolysis seen at the fifth metatarsal distal shaft and neck. Assessment/Plan Assessment/Plan Left plantar forefoot wound. It was explained to the patient that this will likely require deep debridement in the OR. Will order an MRI for evaluation of osteomyelitis and further operative planning. MINA NAVARRO Jun 08, 2017 2:45 pm
[2017-06-08 15:00] VITALS: BP 143/86
[2017-06-08] MEDS ORDERED: MORPHINE SULFATE 4 MG/ML DISP.SYRIN. IV PRN (16:00)
[2017-06-08] MEDS ORDERED: traMADol 50 MG TABLET PO PRN (16:00)
[2017-06-08] MEDS ORDERED: ONDANSETRON PF 4 MG/2 ML VIAL. IV PRN (16:00)
[2017-06-08] MEDS ORDERED: DOCUSATE SODIUM 100 MG CAPSULE. PO PRN (16:00)
--- NOTE | 2017-06-08 16:05 | PDOC ---
PROGRESS NOTES Chief Complaint Chief Complaint left foot plantar wound left foot osteomyelitis dm2 morbid obesity BMI 42 mild malnutrition sepsis iron deficiency, likely 2/2 chronic dz plan: fu with id, ortho MRI left foot i and d, may need amputation cont sonya fernandez, diflucan on levemir 40u qhs, aspart 30u tid , ssi pain control dvt ppx venofer x5d History of Present Illness History of Present Illness ROS: no fever, chills, sob, chest pain left foot plantar wound, has been debrided in wound care clinic, and tried to manage there, but today, acute pain, swelling and redness with discharge Vitals Vitals Vital Signs Date Time Temp Pulse Resp B/P (MAP) Pulse Ox O2 Delivery O2 Flow Rate FiO2 06/08/17 15:11 Room Air 06/08/17 11:00 98.8 91 18 161/75 (103) 100 98.8 Physical Exam General: Alert, Oriented X3, Cooperative, No acute distress Heart: Regular rate, Normal S1, Normal S2 Lungs: Clear Abdomen: Soft Extremities: No clubbing, No cyanosis, Normal pulses, Other (Trace edema to bilateral lower extremities ) Skin: No rashes, Other (left platar wound , left 3 toe blister) Labs LABS Laboratory Tests Test 06/07/17 20:30 06/07/17 20:36 06/08/17 04:00 06/08/17 04:45 Lactic Acid Level 1.1 mmol/L (0.4-2.0) Glucose (Fingerstick) 165 mg/dL (70-99) White Blood Count 13.3 x10^3/uL (4.0-11.0) Red Blood Count 4.68 x10^6/uL (4.30-5.70) Hemoglobin 11.8 g/dL (13.0-17.5) Hematocrit 36.8 % (39.0-53.0) Mean Corpuscular Volume 79 fL (79-100) Mean Corpuscular Hemoglobin 25 pg (25-35) Mean Corpuscular Hemoglobin Concent 32 g/dL (31-37) Red Cell Distribution Width 13.8 % (11.5-14.5) Platelet Count 230 x10^3/uL (140-400) Neutrophils (%) (Auto) 76 % (31-73) Lymphocytes (%) (Auto) 14 % (24-48) Monocytes (%) (Auto) 8 % (0-9) Eosinophils (%) (Auto) 2 % (0-3) Basophils (%) (Auto) 0 % (0-3) Neutrophils # (Auto) 10.1 x10^3uL (1.8-7.7) Lymphocytes # (Auto) 1.8 x10^3/uL (1.0-4.8) Monocytes # (Auto) 1.1 x10^3/uL (0.0-1.1) Eosinophils # (Auto) 0.2 x10^3/uL (0.0-0.7) Basophils # (Auto) 0.1 x10^3/uL (0.0-0.2) Sodium Level 136 mmol/L (136-145) Potassium Level 3.5 mmol/L (3.5-5.1) Chloride Level 99 mmol/L (98-107) Carbon Dioxide Level 26 mmol/L (21-32) Anion Gap 11 (6-14) Blood Urea Nitrogen 12 mg/dL (8-26) Creatinine 0.9 mg/dL (0.7-1.3) Estimated GFR (Cockcroft-Gault) 115.5 Glucose Level 167 mg/dL (70-99) Calcium Level 9.0 mg/dL (8.5-10.1) Test 06/08/17 07:30 06/08/17 08:00 06/08/17 11:37 06/08/17 15:37 Glucose (Fingerstick) 206 mg/dL (70-99) 104 mg/dL (70-99) 88 mg/dL (70-99) Iron Level 26 ug/dL (65-175) Total Iron Binding Capacity 194 ug/dL (250-450) Iron Saturation 13 % (15-34) Assessment and Plan Assessmemt and Plan Problems Medical Problems: (1) Foot ulcer, left Status: Acute Problems: Comment Review of Relevant I have reviewed the following items bharti (where applicable) has been applied. Labs Laboratory Tests Test 06/07/17 15:45 06/07/17 20:30 06/07/17 20:36 06/08/17 04:00 White Blood Count 13.1 x10^3/uL (4.0-11.0) 13.3 x10^3/uL (4.0-11.0) Red Blood Count 5.18 x10^6/uL (4.30-5.70) 4.68 x10^6/uL (4.30-5.70) Hemoglobin 13.1 g/dL (13.0-17.5) 11.8 g/dL (13.0-17.5) Hematocrit 40.5 % (39.0-53.0) 36.8 % (39.0-53.0) Mean Corpuscular Volume 78 fL (79-100) 79 fL (79-100) Mean Corpuscular Hemoglobin 25 pg (25-35) 25 pg (25-35) Mean Corpuscular Hemoglobin Concent 32 g/dL (31-37) 32 g/dL (31-37) Red Cell Distribution Width 13.6 % (11.5-14.5) 13.8 % (11.5-14.5) Platelet Count 264 x10^3/uL (140-400) 230 x10^3/uL (140-400) Neutrophils (%) (Auto) 85 % (31-73) 76 % (31-73) Lymphocytes (%) (Auto) 8 % (24-48) 14 % (24-48) Monocytes (%) (Auto) 6 % (0-9) 8 % (0-9) Eosinophils (%) (Auto) 1 % (0-3) 2 % (0-3) Basophils (%) (Auto) 1 % (0-3) 0 % (0-3) Neutrophils # (Auto) 11.1 x10^3uL (1.8-7.7) 10.1 x10^3uL (1.8-7.7) Lymphocytes # (Auto) 1.0 x10^3/uL (1.0-4.8) 1.8 x10^3/uL (1.0-4.8) Monocytes # (Auto) 0.8 x10^3/uL (0.0-1.1) 1.1 x10^3/uL (0.0-1.1) Eosinophils # (Auto) 0.1 x10^3/uL (0.0-0.7) 0.2 x10^3/uL (0.0-0.7) Basophils # (Auto) 0.1 x10^3/uL (0.0-0.2) 0.1 x10^3/uL (0.0-0.2) Sodium Level 135 mmol/L (136-145) Potassium Level 3.6 mmol/L (3.5-5.1) Chloride Level 98 mmol/L (98-107) Carbon Dioxide Level 26 mmol/L (21-32) Anion Gap 11 (6-14) Blood Urea Nitrogen 14 mg/dL (8-26) Creatinine 1.1 mg/dL (0.7-1.3) Estimated GFR (Cockcroft-Gault) 91.6 BUN/Creatinine Ratio 13 (6-20) Glucose Level 197 mg/dL (70-99) Lactic Acid Level 1.4 mmol/L (0.4-2.0) 1.1 mmol/L (0.4-2.0) Calcium Level 9.9 mg/dL (8.5-10.1) Total Bilirubin 0.6 mg/dL (0.2-1.0) Aspartate Amino Transf (AST/SGOT) 14 U/L (15-37) Alanine Aminotransferase (ALT/SGPT) 27 U/L (16-63) Alkaline Phosphatase 103 U/L (46-116) Troponin I Quantitative < 0.017 ng/mL (0.000-0.055) Total Protein 8.9 g/dL (6.4-8.2) Albumin 3.3 g/dL (3.4-5.0) Albumin/Globulin Ratio 0.6 (1.0-1.7) Glucose (Fingerstick) 165 mg/dL (70-99) Test 06/08/17 04:45 06/08/17 07:30 06/08/17 08:00 06/08/17 11:37 Sodium Level 136 mmol/L (136-145) Potassium Level 3.5 mmol/L (3.5-5.1) Chloride Level 99 mmol/L (98-107) Carbon Dioxide Level 26 mmol/L (21-32) Anion Gap 11 (6-14) Blood Urea Nitrogen 12 mg/dL (8-26) Creatinine 0.9 mg/dL (0.7-1.3) Estimated GFR (Cockcroft-Gault) 115.5 Glucose Level 167 mg/dL (70-99) Calcium Level 9.0 mg/dL (8.5-10.1) Glucose (Fingerstick) 206 mg/dL (70-99) 104 mg/dL (70-99) Iron Level 26 ug/dL (65-175) Total Iron Binding Capacity 194 ug/dL (250-450) Iron Saturation 13 % (15-34) Test 06/08/17 15:37 Glucose (Fingerstick) 88 mg/dL (70-99) Laboratory Tests Test 06/07/17 20:30 06/07/17 20:36 06/08/17 04:00 06/08/17 04:45 Lactic Acid Level 1.1 mmol/L (0.4-2.0) Glucose (Fingerstick) 165 mg/dL (70-99) White Blood Count 13.3 x10^3/uL (4.0-11.0) Red Blood Count 4.68 x10^6/uL (4.30-5.70) Hemoglobin 11.8 g/dL (13.0-17.5) Hematocrit 36.8 % (39.0-53.0) Mean Corpuscular Volume 79 fL (79-100) Mean Corpuscular Hemoglobin 25 pg (25-35) Mean Corpuscular Hemoglobin Concent 32 g/dL (31-37) Red Cell Distribution Width 13.8 % (11.5-14.5) Platelet Count 230 x10^3/uL (140-400) Neutrophils (%) (Auto) 76 % (31-73) Lymphocytes (%) (Auto) 14 % (24-48) Monocytes (%) (Auto) 8 % (0-9) Eosinophils (%) (Auto) 2 % (0-3) Basophils (%) (Auto) 0 % (0-3) Neutrophils # (Auto) 10.1 x10^3uL (1.8-7.7) Lymphocytes # (Auto) 1.8 x10^3/uL (1.0-4.8) Monocytes # (Auto) 1.1 x10^3/uL (0.0-1.1) Eosinophils # (Auto) 0.2 x10^3/uL (0.0-0.7) Basophils # (Auto) 0.1 x10^3/uL (0.0-0.2) Sodium Level 136 mmol/L (136-145) Potassium Level 3.5 mmol/L (3.5-5.1) Chloride Level 99 mmol/L (98-107) Carbon Dioxide Level 26 mmol/L (21-32) Anion Gap 11 (6-14) Blood Urea Nitrogen 12 mg/dL (8-26) Creatinine 0.9 mg/dL (0.7-1.3) Estimated GFR (Cockcroft-Gault) 115.5 Glucose Level 167 mg/dL (70-99) Calcium Level 9.0 mg/dL (8.5-10.1) Test 06/08/17 07:30 06/08/17 08:00 06/08/17 11:37 06/08/17 15:37 Glucose (Fingerstick) 206 mg/dL (70-99) 104 mg/dL (70-99) 88 mg/dL (70-99) Iron Level 26 ug/dL (65-175) Total Iron Binding Capacity 194 ug/dL (250-450) Iron Saturation 13 % (15-34) Microbiology 06/07/17 Blood Culture - Preliminary, Resulted NO GROWTH AFTER 1 DAY Medications Current Medications Sodium Chloride 1,000 ml @ 1,000 mls/hr 1X ONCE IV Last administered on 06/07 16:11; Start 06/07/17 at 15:00; Stop 06/07/17 at 15:59; Status DC Ibuprofen (Motrin) 800 mg 1X ONCE PO Last administered on 06/07/17 16:45; Start 06/07/17 at 16:45; Stop 06/07/17 at 16:48; Status DC Iohexol (Omnipaque 300 Mg/ml) 75 ml 1X ONCE IV ; Start 06/07/17 at 17:00; Stop 06/07/17 at 17:03; Status DC Vancomycin HCl (Vanco Per Pharmacy) 1 each PRN DAILY PRN MC SEE COMMENTS Last administered on 06/08/17 13:10; Start 06/07/17 at 17:00 Piperacillin Sod/ Tazobactam Sod (Zosyn Per Pharmacy) 1 each PRN DAILY PRN MC SEE COMMENTS; Start 06/07/17 at 17:00; Status UNV Vancomycin HCl 2 gm/Dextrose 500 ml @ 250 mls/hr 1X ONCE IV Last administered on 11/16/17at 17:47; Start 06/07/17 at 17:30; Stop 06/07/17 at 19 :29; Status DC Piperacillin Sod/ Tazobactam Sod (Zosyn) 3.375 gm 1X ONCE IVP Last administered on 06/07/17 17:44; Start 06/07/17 at 17:15; Stop 06/07/17 at 17 :16; Status DC Ondansetron HCl (Zofran) 4 mg PRN Q8HRS PRN IV NAUSEA/VOMITING; Start at 18:15; Stop 06/08/17 at 18:14 Fentanyl Citrate (Fentanyl 2ml Vial) 50 mcg PRN Q1HR PRN IV PAIN; Start at 18:15; Stop 06/08/17 at 18:14 Sodium Chloride 1,000 ml @ 125 mls/hr Q8H IV Last administered on 06/08/17 12:20; Start 06/07/17 at 18:12; Stop 06/08/17 at 18:11 Acetaminophen (Tylenol) 650 mg PRN Q4HRS PRN PO FEVER; Start 06/07/17 at 18:15 ; Stop 06/08/17 at 18:14 Albuterol Sulfate (Ventolin Neb Soln) 2.5 mg QID NEB Last administered on 06/08 15:10; Start 06/07/17 at 21:00 Budesonide (Pulmicort) 0.5 mg BID NEB Last administered on 06/08/17 07:24; Start 06/07/17 at 21:00 Enoxaparin Sodium (Lovenox Per Pharmacy Prophylaxis Dosing) 1 each PRN DAILY PRN MC SEE COMMENTS; Start 06/07/17 at 19:15; Status UNV Oxycodone HCl (Roxicodone) 5 mg PRN Q4HRS PRN PO pain; Start 06/07/17 at 19:15 Zolpidem Tartrate (Ambien) 5 mg PRN QHS PRN PO INSOMNIA; Start 06/07/17 at 19: 15 Piperacillin Sod/ Tazobactam Sod (Zosyn) 3.375 gm Q6HRS IVP Last administered on 06/08/17 12:20; Start 06/08/17 at 00:00; Stop 06/08/17 at 13:47; Status DC Lisinopril (Prinivil) 10 mg DAILY PO Last administered on 06/08/17 08:18; Start 06/08/17 at 09:00 Atorvastatin Calcium (Lipitor) 10 mg QHS PO Last administered on 06/07/17 22: 08; Start 06/07/17 at 21:00 Insulin Detemir (Levemir) 40 units QHS SQ Last administered on 06/07/17 22:08 ; Start 06/07/17 at 21:00 Insulin Aspart (NovoLOG) 30 units TIDAC SQ Last administered on 06/08/17 12: 30; Start 06/08/17 at 07:30 Insulin Aspart (NovoLOG) 0-9 UNITS TIDWMEALS SQ Last administered on 08:00; Start 06/08/17 at 08:00 Dextrose (Dextrose 50%-Water Syringe) 12.5 gm PRN Q15MIN PRN IV SEE COMMENTS; Start 06/07/17 at 19:15 Vancomycin HCl 2 gm/Dextrose 500 ml @ 250 mls/hr Q12H IV Last administered on 06/08/17 05:21; Start 06/08/17 at 06:00 Vancomycin HCl 1 each 1X ONCE MC ; Start 06/09/17 at 05:30; Stop 06/09/17 at 05:31 Piperacillin Sod/ Tazobactam Sod 4.5 gm/Dextrose 100 ml @ 200 mls/hr Q6HRS IV ; Start 06/08/17 at 18:00; Stop 06/08/17 at 18:00; Status DC Fluconazole (Diflucan) 200 mg DAILY PO Last administered on 06/08/17 14:32; Start 06/08/17 at 13:45 Piperacillin Sod/ Tazobactam Sod (Zosyn) 4.5 gm Q6HRS IVP Last administered on 06/08/17 14:32; Start 06/08/17 at 13:45 Active Scripts Active Bactrim Ds Tablet (Sulfamethoxazole/Trimethoprim) 1 Each Tablet 1 Tab PO BID Vitals/I & O Vital Sign - Last 24 Hours 06/07/17 06/07/17 06/07/17 06/07/17 16:30 17:30 19:20 20:40 Temp 98.8 98.8 Pulse 108 104 Resp 20 21 B/P (MAP) 187/86 (119) 164/84 (110) Pulse Ox 98 96 O2 Delivery Room Air Room Air Room Air 06/07/17 06/07/17 06/07/17 06/07/17 20:40 20:40 21:48 23:00 Temp 99.0 99.0 Pulse 90 Resp 18 B/P (MAP) 122/86 (98) Pulse Ox 96 98 O2 Delivery Room Air Room Air Room Air 06/08/17 06/08/17 06/08/17 06/08/17 03:00 07:00 07:26 08:00 Temp 98.2 98.1 98.2 98.1 Pulse 86 93 Resp 18 18 B/P (MAP) 152/103 (119) 156/94 (114) Pulse Ox 99 98 97 O2 Delivery Room Air Room Air Room Air 06/08/17 06/08/17 06/08/17 06/08/17 08:18 11:00 11:06 15:11 Temp 98.8 98.8 Pulse 86 91 Resp 18 B/P (MAP) 152/103 161/75 (103) Pulse Ox 100 O2 Delivery Room Air Room Air Room Air Intake and Output 06/07/17 06/07/17 06/08/17 14:59 22:59 06:59 Intake Total 840 ml Balance 840 ml DASHA GONZALEZ MD Jun 08, 2017 16:04
[2017-06-08] MEDS ORDERED: IRON SUCROSE COMPLEX 200 MG in IV NORMAL SALINE 100ML 100 ML IV SCH (16:30)
--- NOTE | 2017-06-08 17:09 | RAD ---
MR of the left forefoot HISTORY: Nonhealing ulcer after stepping on a nail 8 months ago. Suspect osteomyelitis. TECHNIQUE: Routine multiplanar sequences. FINDINGS: There is diffuse marrow edema signal within the fifth metatarsal. There is aggressive loss of fatty marrow signal at the distal shaft and head, with destruction of the plantar cortical surface. These findings are compatible with osteomyelitis. There is similar finding compatible with osteomyelitis at the base and shaft of the proximal fifth phalanx. There is some tissue irregularity plantar to the fifth metatarsal head presumably an ulcer. The fifth metatarsal head appears to be exposed or nearly exposed at the site of the ulcer. Mild marrow edema within the distal aspect of the fourth metatarsal and the proximal fourth phalanx with mild loss of fatty T1 signal. These findings are suspicious for osteomyelitis, less advanced than those at the fifth ray. No overt bone destruction. The fifth metatarsal head also lies close to the area of ulceration. There is no evidence of an organized or drainable abscess. There is diffuse soft tissue edema and swelling throughout the foot. No evidence of significant tendon sheath fluid. IMPRESSION: 1. Findings are compatible with osteomyelitis of the fifth metatarsal and proximal fifth phalanx. 2. Findings are highly suspicious for osteomyelitis of the distal fourth metatarsal and proximal fourth phalanx. 3. Diffuse soft tissue infection or cellulitis/myositis. No evidence of a drainable abscess. Electronically signed by: Sharan Buckner MD (06/08/2017 5:06 PM) [id number]
[2017-06-08] MEDS: IRON SUCROSE COMPLEX 200 MG in TOTAL VOLUME SYRINGE 1 ML IV SCH (17:32)
[2017-06-08] MEDS ORDERED: PIPERACILLIN/TAZOBACTAM 4.5 GM in IV DEXTROSE 5% 100 ML IV SCH (18:00)
[2017-06-08] MEDS: oxyCODONE IR 5 MG TABLET PO PRN (19:26)
[2017-06-08 19:50] VITALS: BP 175/87
[2017-06-08] MEDS: ATORVASTATIN CALCIUM 10 MG TABLET. PO SCH (21:27)
[2017-06-08] MEDS: ACETAMINOPHEN 325 MG TABLET. PO PRN (21:27)
[2017-06-08] MEDS: INSULIN DETEMIR 300 UNITS/3 ML INSULN.PEN. SQ SCH (21:33)
[2017-06-08 23:31] VITALS: BP 144/78
[2017-06-09] MEDS: PIPERACILLIN/TAZO IV Push 4.5 GM VIAL. IVP SCH ×5 (00:50→23:28)
--- NOTE | 2017-06-09 03:20 | CONS ---
DATE OF CONSULTATION: 06/08/2017 PATIENT'S ROOM: 517 REQUESTING PHYSICIAN: Dr. Francis. REASON FOR CONSULTATION: Cellulitis of the foot. HISTORY OF PRESENT ILLNESS: The patient is a pleasant 36-year-old gentleman with history of diabetes for several years who in September was in his bare feet in his house when he stepped on a nail with his left foot. Several days later, became more swollen and red, presented to [facility] Emergency Room. At that time, the wound was opened up slightly and he was placed on Bactrim. Over time, he continued to go to the wound care center. States that the wound was extensively debrided in the wound care center; over time, had healed. In December or January, he purchased the [employer] boot and was walking with that. About 2 days ago, he was in his truck and became suddenly cold and had a difficult time breathing. He felt he was having an asthma attack. He had sweat and noticed that his left leg started to bother him with some pain. Eventually, it worsened and he presented to [facility] on the and was found to have a white count of 13.1. He underwent a chest CTA, showed no evidence of any pulmonary embolism. Chest x-ray was no acute pulmonary abnormality. Foot x-ray was obtained, showed lateral plantar soft tissue defect with underlying gas and focal osteolysis of the distal fifth concerning for osteomyelitis with diffuse ankle and foot soft tissue swelling, may represent cellulitis. He then underwent lower extremity venous studies, which showed mild infrapopliteal atherosclerotic disease without high-grade stenosis. He has been admitted to the hospital and has been placed on IV vancomycin and I have been consulted. Additionally, he is on Zosyn. He was having some fever as well that has improved. He is a little bit more comfortable. No dysuria, frequency. No nausea, vomiting, diarrhea or other trauma. PAST MEDICAL HISTORY: Positive for morbid obesity, diabetes, asthma, hypertension, previous foot injury and infection as mentioned above as well as back injury. PAST SURGICAL HISTORY: Positive for back surgery and denies any hardware in place. REVIEW OF SYSTEMS: Otherwise negative except for mentioned above. ALLERGIES: LISTED ARE METFORMIN AND SHELLFISH. SOCIAL HISTORY: He works for a [employer] company. Denies any tobacco. FAMILY HISTORY: Positive for diabetes on his father's side. CURRENT MEDICATIONS: Include vancomycin, DuoNeb, Lipitor, Pulmicort, insulin, Zosyn 3.375 q.6 h. Other meds are available and reviewed in the chart. PHYSICAL EXAMINATION: VITAL SIGNS: Temperature was 101 on presentation, currently 98.8; pulse 91; respirations 18; blood pressure 161/75; satting 100% on room air. CONSTITUTIONAL: He is a pleasant gentleman. He is cooperative. He is in no acute distress. He is lying in bed. He is morbidly obese. HEENT: Pupils are equal and reactive. He has normal conjunctivae. Oral cavity, pharynx is clear. NECK: Supple, no JVD. LUNGS: Clear to auscultation bilaterally, no wheeze. HEART: S1, S2. ABDOMEN: Morbidly obese, soft, nontender, nondistended. No guarding, no rebound. EXTREMITIES: Without clubbing, cyanosis. His left lower extremity, his foot, has tinea associated with his third toe that is enlarged. There is mild erythema with it. There is a fluid collection at the base of the third toe on the dorsal aspect that is draining purulent material. He also has a wound on the plantar aspect that is approximately 3-4 cm with good granulating tissue with some mild surrounding maceration. EXTREMITIES: Have a 1+ edema. SKIN: Warm to touch without signs of rash. Again, he did have some tinea. NEUROLOGIC: He is nonfocal, moves all extremities. PSYCHIATRIC: Affect is appropriate. LABORATORY VALUES: White count 13.3, hemoglobin 11.8, platelets of 230, neutrophils 76, lymphs 14. Glucose was 167, creatinine is 0.9. Normal liver function study tests. Radiology reviewed in history of present illness. IMPRESSION: 1. Left plantar foot wound. 2. Left third toe infection. 3. Diabetes. 4. Fever. RECOMMENDATIONS: A culture from the third toe was obtained. We will increase Zosyn to 4.5 q.6 h. We will add fluconazole. Continue vancomycin. Obtain MRI of his foot to rule out deeper infection like an abscess, particularly around his third toe. States he had an MRI over a month ago at . Also, obtain arterial Dopplers of his lower extremities. Follow up labs and cultures. Need elevation. This was discussed with his mother. Thank you for allowing me to participate in this patient's care. If you have any questions, please do not hesitate to contact me. EKTA NESBITT MD DR: DANNA/arsenio JOB#: [id number] / [id number]
[2017-06-09 03:41] VITALS: BP 145/76
[2017-06-09 05:54] LABS: BASO % 1 % (0-3); EOS % 4 % (0-3); HEMATOCRIT 34.7 % (39.0-53.0); HEMOGLOBIN 11.7 g/dL (13.0-17.5); LYMPH # 1.4 x10^3/uL (1.0-4.8); LYMPH % 17 % (24-48); MEAN CORPUSCULAR HEMOGLOBIN 26 pg (25-35); MEAN CORPUSCULAR HGB CONC 34 g/dL (31-37); MEAN CORPUSCULAR VOLUME 77 fL (79-100); MONO % 9 % (0-9); NEUT % 70 % (31-73); PLATELET COUNT 233 x10^3/uL (140-400); RED BLOOD COUNT 4.48 x10^6/uL (4.30-5.70); RED CELL DISTRIBUTION WIDTH 13.6 % (11.5-14.5); WHITE BLOOD COUNT 8.3 x10^3/uL (4.0-11.0)
[2017-06-09] MEDS: VANCOMYCIN 2 GM in IV DEXTROSE 5% 500 ML IV SCH (06:00)
[2017-06-09 06:16] LABS: CALCIUM 8.8 mg/dL (8.5-10.1); CREATININE 0.9 mg/dL (0.7-1.3); GFR 115.5; POTASSIUM 3.8 mmol/L (3.5-5.1)
[2017-06-09] MEDS: VANCOMYCIN PER PHARMACY MC PRN ×2 (07:03→09:55)
[2017-06-09] MEDS: ALBUTEROL SULFATE 2.5 MG/3 ML NEBU. NEB SCH ×4 (07:34→19:16)
[2017-06-09] MEDS: BUDESONIDE 0.5 MG/2 ML NEBU. NEB SCH ×2 (07:34→19:16)
[2017-06-09 07:45] VITALS: BP 168/100
[2017-06-09] MEDS: LISINOPRIL 10 MG TABLET PO SCH (08:21)
[2017-06-09] MEDS: oxyCODONE IR 5 MG TABLET PO PRN ×3 (08:21→23:36)
[2017-06-09] MEDS: FLUCONAZOLE 100 MG TABLET. PO SCH (08:21)
[2017-06-09] MEDS: IRON SUCROSE COMPLEX 200 MG in TOTAL VOLUME SYRINGE 1 ML IV SCH (08:22)
[2017-06-09] MEDS: INSULIN ASPART 300 UNITS/3 ML INSULN.PEN SQ SCH ×6 (08:34→16:45)
--- NOTE | 2017-06-09 08:38 | RAD ---
RIGHT LOWER EXTREMITY DUPLEX ARTERY ULTRASOUND Indication: DM and lower extremity wounds Comparison: None. Procedure:Real-time grayscale, color-flow Doppler, and Doppler spectral analysis of the arterial system of the lower extremities is performed. Findings: There are triphasic waveforms throughout the right lower extremity with the exception of biphasic distal posterior tibial artery and anterior tibial artery. There is mildly elevated peak systolic velocity in the right common femoral artery, 164 cm/s. No other elevated peak systolic velocity is identified. No arterial occlusion. IMPRESSION: No hemodynamically significant stenosis.
[2017-06-09 10:30] VITALS: BP 159/95
--- NOTE | 2017-06-09 10:50 | PDOC ---
PROGRESS NOTES Subjective Subjective Doing well. States foot wound has been draining clear, watery fluid. Objective Vital Signs Vital Signs Date Time Temp Pulse Resp B/P (MAP) Pulse Ox O2 Delivery O2 Flow Rate FiO2 06/09/17 09:34 96 Room Air 06/09/17 08:21 90 145/76 06/09/17 07:45 97.7 18 97.7 Physical Exam Lying in bed. Foot wrapped with spotty drainage. Good dorsiflexion and plantarflexion. Calf soft and nontender. Labs Laboratory Tests Test 06/07/17 15:45 06/07/17 20:30 06/07/17 20:36 06/08/17 04:00 White Blood Count 13.1 x10^3/uL (4.0-11.0) 13.3 x10^3/uL (4.0-11.0) Red Blood Count 5.18 x10^6/uL (4.30-5.70) 4.68 x10^6/uL (4.30-5.70) Hemoglobin 13.1 g/dL (13.0-17.5) 11.8 g/dL (13.0-17.5) Hematocrit 40.5 % (39.0-53.0) 36.8 % (39.0-53.0) Mean Corpuscular Volume 78 fL (79-100) 79 fL (79-100) Mean Corpuscular Hemoglobin 25 pg (25-35) 25 pg (25-35) Mean Corpuscular Hemoglobin Concent 32 g/dL (31-37) 32 g/dL (31-37) Red Cell Distribution Width 13.6 % (11.5-14.5) 13.8 % (11.5-14.5) Platelet Count 264 x10^3/uL (140-400) 230 x10^3/uL (140-400) Neutrophils (%) (Auto) 85 % (31-73) 76 % (31-73) Lymphocytes (%) (Auto) 8 % (24-48) 14 % (24-48) Monocytes (%) (Auto) 6 % (0-9) 8 % (0-9) Eosinophils (%) (Auto) 1 % (0-3) 2 % (0-3) Basophils (%) (Auto) 1 % (0-3) 0 % (0-3) Neutrophils # (Auto) 11.1 x10^3uL (1.8-7.7) 10.1 x10^3uL (1.8-7.7) Lymphocytes # (Auto) 1.0 x10^3/uL (1.0-4.8) 1.8 x10^3/uL (1.0-4.8) Monocytes # (Auto) 0.8 x10^3/uL (0.0-1.1) 1.1 x10^3/uL (0.0-1.1) Eosinophils # (Auto) 0.1 x10^3/uL (0.0-0.7) 0.2 x10^3/uL (0.0-0.7) Basophils # (Auto) 0.1 x10^3/uL (0.0-0.2) 0.1 x10^3/uL (0.0-0.2) Sodium Level 135 mmol/L (136-145) Potassium Level 3.6 mmol/L (3.5-5.1) Chloride Level 98 mmol/L (98-107) Carbon Dioxide Level 26 mmol/L (21-32) Anion Gap 11 (6-14) Blood Urea Nitrogen 14 mg/dL (8-26) Creatinine 1.1 mg/dL (0.7-1.3) Estimated GFR (Cockcroft-Gault) 91.6 BUN/Creatinine Ratio 13 (6-20) Glucose Level 197 mg/dL (70-99) Lactic Acid Level 1.4 mmol/L (0.4-2.0) 1.1 mmol/L (0.4-2.0) Calcium Level 9.9 mg/dL (8.5-10.1) Total Bilirubin 0.6 mg/dL (0.2-1.0) Aspartate Amino Transf (AST/SGOT) 14 U/L (15-37) Alanine Aminotransferase (ALT/SGPT) 27 U/L (16-63) Alkaline Phosphatase 103 U/L (46-116) Troponin I Quantitative < 0.017 ng/mL (0.000-0.055) Total Protein 8.9 g/dL (6.4-8.2) Albumin 3.3 g/dL (3.4-5.0) Albumin/Globulin Ratio 0.6 (1.0-1.7) Glucose (Fingerstick) 165 mg/dL (70-99) Hemoglobin A1c 8.9 % (4.8-5.6) Test 06/08/17 04:45 06/08/17 07:30 06/08/17 08:00 06/08/17 11:37 Sodium Level 136 mmol/L (136-145) Potassium Level 3.5 mmol/L (3.5-5.1) Chloride Level 99 mmol/L (98-107) Carbon Dioxide Level 26 mmol/L (21-32) Anion Gap 11 (6-14) Blood Urea Nitrogen 12 mg/dL (8-26) Creatinine 0.9 mg/dL (0.7-1.3) Estimated GFR (Cockcroft-Gault) 115.5 Glucose Level 167 mg/dL (70-99) Calcium Level 9.0 mg/dL (8.5-10.1) Glucose (Fingerstick) 206 mg/dL (70-99) 104 mg/dL (70-99) Iron Level 26 ug/dL (65-175) Total Iron Binding Capacity 194 ug/dL (250-450) Iron Saturation 13 % (15-34) Test 06/08/17 15:37 06/08/17 21:20 06/09/17 05:25 06/09/17 07:50 Glucose (Fingerstick) 88 mg/dL (70-99) 182 mg/dL (70-99) 209 mg/dL (70-99) White Blood Count 8.3 x10^3/uL (4.0-11.0) Red Blood Count 4.48 x10^6/uL (4.30-5.70) Hemoglobin 11.7 g/dL (13.0-17.5) Hematocrit 34.7 % (39.0-53.0) Mean Corpuscular Volume 77 fL (79-100) Mean Corpuscular Hemoglobin 26 pg (25-35) Mean Corpuscular Hemoglobin Concent 34 g/dL (31-37) Red Cell Distribution Width 13.6 % (11.5-14.5) Platelet Count 233 x10^3/uL (140-400) Neutrophils (%) (Auto) 70 % (31-73) Lymphocytes (%) (Auto) 17 % (24-48) Monocytes (%) (Auto) 9 % (0-9) Eosinophils (%) (Auto) 4 % (0-3) Basophils (%) (Auto) 1 % (0-3) Neutrophils # (Auto) 5.8 x10^3uL (1.8-7.7) Lymphocytes # (Auto) 1.4 x10^3/uL (1.0-4.8) Monocytes # (Auto) 0.8 x10^3/uL (0.0-1.1) Eosinophils # (Auto) 0.3 x10^3/uL (0.0-0.7) Basophils # (Auto) 0.0 x10^3/uL (0.0-0.2) Sodium Level 136 mmol/L (136-145) Potassium Level 3.8 mmol/L (3.5-5.1) Chloride Level 101 mmol/L (98-107) Carbon Dioxide Level 27 mmol/L (21-32) Anion Gap 8 (6-14) Blood Urea Nitrogen 9 mg/dL (8-26) Creatinine 0.9 mg/dL (0.7-1.3) Estimated GFR (Cockcroft-Gault) 115.5 Glucose Level 207 mg/dL (70-99) Calcium Level 8.8 mg/dL (8.5-10.1) Vancomycin Level Trough 9.3 mcg/mL (10.0-20.0) Vancomycin Last Dose Date 06/08/17 Vancomycin Last Dose Time 1800 Laboratory Tests Test 06/08/17 11:37 06/08/17 15:37 06/08/17 21:20 06/09/17 05:25 Glucose (Fingerstick) 104 mg/dL (70-99) 88 mg/dL (70-99) 182 mg/dL (70-99) White Blood Count 8.3 x10^3/uL (4.0-11.0) Red Blood Count 4.48 x10^6/uL (4.30-5.70) Hemoglobin 11.7 g/dL (13.0-17.5) Hematocrit 34.7 % (39.0-53.0) Mean Corpuscular Volume 77 fL (79-100) Mean Corpuscular Hemoglobin 26 pg (25-35) Mean Corpuscular Hemoglobin Concent 34 g/dL (31-37) Red Cell Distribution Width 13.6 % (11.5-14.5) Platelet Count 233 x10^3/uL (140-400) Neutrophils (%) (Auto) 70 % (31-73) Lymphocytes (%) (Auto) 17 % (24-48) Monocytes (%) (Auto) 9 % (0-9) Eosinophils (%) (Auto) 4 % (0-3) Basophils (%) (Auto) 1 % (0-3) Neutrophils # (Auto) 5.8 x10^3uL (1.8-7.7) Lymphocytes # (Auto) 1.4 x10^3/uL (1.0-4.8) Monocytes # (Auto) 0.8 x10^3/uL (0.0-1.1) Eosinophils # (Auto) 0.3 x10^3/uL (0.0-0.7) Basophils # (Auto) 0.0 x10^3/uL (0.0-0.2) Sodium Level 136 mmol/L (136-145) Potassium Level 3.8 mmol/L (3.5-5.1) Chloride Level 101 mmol/L (98-107) Carbon Dioxide Level 27 mmol/L (21-32) Anion Gap 8 (6-14) Blood Urea Nitrogen 9 mg/dL (8-26) Creatinine 0.9 mg/dL (0.7-1.3) Estimated GFR (Cockcroft-Gault) 115.5 Glucose Level 207 mg/dL (70-99) Calcium Level 8.8 mg/dL (8.5-10.1) Vancomycin Level Trough 9.3 mcg/mL (10.0-20.0) Vancomycin Last Dose Date 06/08/17 Vancomycin Last Dose Time 1800 Test 06/09/17 07:50 Glucose (Fingerstick) 209 mg/dL (70-99) Imaging MRI left foot showed evidence of osteomyelitis of the fifth metatarsal and proximal fifth phalanx. Mild marrow edema within the distal aspect of the fourth metatarsal and the proximal fourth phalanx, suspicious for osteomyelitis. No evidence of organized abscess. Assessment Assessment Left forefoot plantar wound with associated osteomyelitis Problems: Plan Plan of Care MRI showed osteomyelitis of the fifth metatarsal and possibly fourth metatarsal. We will plan for irrigation and debridement tomorrow morning. Risks and benefits of surgery were discussed. We discussed the need for IV antibiotics postoperatively. All of his questions were answered and he desires to proceed. Surgery is scheduled for 8am. NPO after midnight. MINA NAVARRO Jun 09, 2017 10:50
--- NOTE | 2017-06-09 13:58 | PDOC ---
PROGRESS NOTES Chief Complaint Chief Complaint L foot wound ASSESSMENT AND PLAN: 1. L ant foot puncture wound: cellulitis with osteomyelitis of the fifth metatarsal and proximal fifth phalanx, also suspicion for osteo of the distal fourth metatarsal and proximal fourth phalanx on MRI. cont broad spectrum Abx. surgical debridement (?) planned in AM; possibly needing amputation 2. Sepsis 3. DM2: fair control here, poor at home with HgbA1c 8.9. monitor with ISS on current regimen; may need adjustment when infection better controlled 4. Anemia: iron studies c/w inflammation, not iron deficiency. low dose daily PO iron repletion 5. Hypoalbuminemia: 2/2 inflammation 6. morbid obesity BMI 42: dietary teaching 7. Prophylaxis: hold in AM History of Present Illness History of Present Illness feels ok; states foot wound "exploded" in past few days. Vitals Vitals Vital Signs Date Time Temp Pulse Resp B/P (MAP) Pulse Ox O2 Delivery O2 Flow Rate FiO2 06/09/17 11:19 Room Air 06/09/17 10:30 98.6 93 18 159/95 (116) 97 98.6 Physical Exam General: Alert, Oriented X3, Cooperative, No acute distress Heart: Regular rate Lungs: Clear Abdomen: Soft, No tenderness, Other (massive ly obese) Extremities: No clubbing, No cyanosis, Normal pulses, Other (Trace edema to bilateral lower extremities ) Skin: No rashes, Other (left platar wound , left 3 toe blister. malodorous) Labs LABS Laboratory Tests Test 06/08/17 15:37 06/08/17 21:20 06/09/17 05:25 06/09/17 07:50 Glucose (Fingerstick) 88 mg/dL (70-99) 182 mg/dL (70-99) 209 mg/dL (70-99) White Blood Count 8.3 x10^3/uL (4.0-11.0) Red Blood Count 4.48 x10^6/uL (4.30-5.70) Hemoglobin 11.7 g/dL (13.0-17.5) Hematocrit 34.7 % (39.0-53.0) Mean Corpuscular Volume 77 fL (79-100) Mean Corpuscular Hemoglobin 26 pg (25-35) Mean Corpuscular Hemoglobin Concent 34 g/dL (31-37) Red Cell Distribution Width 13.6 % (11.5-14.5) Platelet Count 233 x10^3/uL (140-400) Neutrophils (%) (Auto) 70 % (31-73) Lymphocytes (%) (Auto) 17 % (24-48) Monocytes (%) (Auto) 9 % (0-9) Eosinophils (%) (Auto) 4 % (0-3) Basophils (%) (Auto) 1 % (0-3) Neutrophils # (Auto) 5.8 x10^3uL (1.8-7.7) Lymphocytes # (Auto) 1.4 x10^3/uL (1.0-4.8) Monocytes # (Auto) 0.8 x10^3/uL (0.0-1.1) Eosinophils # (Auto) 0.3 x10^3/uL (0.0-0.7) Basophils # (Auto) 0.0 x10^3/uL (0.0-0.2) Sodium Level 136 mmol/L (136-145) Potassium Level 3.8 mmol/L (3.5-5.1) Chloride Level 101 mmol/L (98-107) Carbon Dioxide Level 27 mmol/L (21-32) Anion Gap 8 (6-14) Blood Urea Nitrogen 9 mg/dL (8-26) Creatinine 0.9 mg/dL (0.7-1.3) Estimated GFR (Cockcroft-Gault) 115.5 Glucose Level 207 mg/dL (70-99) Calcium Level 8.8 mg/dL (8.5-10.1) Vancomycin Level Trough 9.3 mcg/mL (10.0-20.0) Vancomycin Last Dose Date 06/08/17 Vancomycin Last Dose Time 1800 Test 06/09/17 11:24 Glucose (Fingerstick) 138 mg/dL (70-99) HERNANDO DEVINE MD Jun 09, 2017 13:58
[2017-06-09 14:30] VITALS: BP 189/107
[2017-06-09] MEDS: VANCOMYCIN 1.5 GM in IV DEXTROSE 5% 500 ML IV SCH ×2 (14:33→21:20)
[2017-06-09] MEDS: hydrALAZINE 20 MG/ML VIAL. IVP PRN (14:53)
--- NOTE | 2017-06-09 15:23 | PDOC ---
Infectious Disease Note Subjective Subjective Pain controlled at the moment Tmax 100.1 ROS ROS GEN: Denies chills, sweats CV: Denies chest pain RESP: Denies shortness of air, cough GI: Denies n/v/d Vital Sign Vital Signs Vital Signs Date Time Temp Pulse Resp B/P (MAP) Pulse Ox O2 Delivery O2 Flow Rate FiO2 06/09/17 14:53 98 189/102 06/09/17 11:19 Room Air 06/09/17 10:30 98.6 18 97 98.6 Physical Exam PHYSICAL EXAM GENERAL: Sleepy LUNGS: Clear HEART: S1S2, no gallop, no murmur ABD: Soft, NT, BS active EXT: No edema, no cyanosis; left foot wound bandaged, recently changed. warm wiggly toes COLOR MAKER: Awake, oriented SKIN: No rash IV: ok Labs Lab Laboratory Tests Test 06/08/17 15:37 06/08/17 21:20 06/09/17 05:25 06/09/17 07:50 Glucose (Fingerstick) 88 mg/dL (70-99) 182 mg/dL (70-99) 209 mg/dL (70-99) White Blood Count 8.3 x10^3/uL (4.0-11.0) Red Blood Count 4.48 x10^6/uL (4.30-5.70) Hemoglobin 11.7 g/dL (13.0-17.5) Hematocrit 34.7 % (39.0-53.0) Mean Corpuscular Volume 77 fL (79-100) Mean Corpuscular Hemoglobin 26 pg (25-35) Mean Corpuscular Hemoglobin Concent 34 g/dL (31-37) Red Cell Distribution Width 13.6 % (11.5-14.5) Platelet Count 233 x10^3/uL (140-400) Neutrophils (%) (Auto) 70 % (31-73) Lymphocytes (%) (Auto) 17 % (24-48) Monocytes (%) (Auto) 9 % (0-9) Eosinophils (%) (Auto) 4 % (0-3) Basophils (%) (Auto) 1 % (0-3) Neutrophils # (Auto) 5.8 x10^3uL (1.8-7.7) Lymphocytes # (Auto) 1.4 x10^3/uL (1.0-4.8) Monocytes # (Auto) 0.8 x10^3/uL (0.0-1.1) Eosinophils # (Auto) 0.3 x10^3/uL (0.0-0.7) Basophils # (Auto) 0.0 x10^3/uL (0.0-0.2) Sodium Level 136 mmol/L (136-145) Potassium Level 3.8 mmol/L (3.5-5.1) Chloride Level 101 mmol/L (98-107) Carbon Dioxide Level 27 mmol/L (21-32) Anion Gap 8 (6-14) Blood Urea Nitrogen 9 mg/dL (8-26) Creatinine 0.9 mg/dL (0.7-1.3) Estimated GFR (Cockcroft-Gault) 115.5 Glucose Level 207 mg/dL (70-99) Calcium Level 8.8 mg/dL (8.5-10.1) Vancomycin Level Trough 9.3 mcg/mL (10.0-20.0) Vancomycin Last Dose Date 06/08/17 Vancomycin Last Dose Time 1800 Test 06/09/17 11:24 Glucose (Fingerstick) 138 mg/dL (70-99) IMPRESSION: No hemodynamically significant stenosis. MRI IMPRESSION: 1. Findings are compatible with osteomyelitis of the fifth metatarsal and proximal fifth phalanx. 2. Findings are highly suspicious for osteomyelitis of the distal fourth metatarsal and proximal fourth phalanx. 3. Diffuse soft tissue infection or cellulitis/myositis. No evidence of a drainable abscess. Micro Toe 06/08 ANAEROBIC-AEROBIC CULTURE PENDING ANAEROBIC RES 1 PENDING AEROBIC CULT Preliminary Preliminary report AEROBIC RES 1 Preliminary Gram negative rods BLOOD CULTURE Preliminary NO GROWTH AFTER 1 DAY Objective Assessment Left plantar foot wound w/ osteo 4th & 5th toes on MRI Left third toe infection, GNR DM Fever - better Plan Plan of Care vanc, Zosyn and Diflucan Probiotics f/u labs and cults Elevation Scheduled for surgery tomorrow FELICITAS VALDES APRN Jun 09, 2017 15:23
[2017-06-09 19:00] VITALS: BP 146/93
[2017-06-09] MEDS: LACTOBACILLUS RHAMNOSUS GG 1 CAPSULE. PO SCH (21:20)
[2017-06-09] MEDS: ATORVASTATIN CALCIUM 10 MG TABLET. PO SCH (21:20)
[2017-06-09] MEDS: INSULIN DETEMIR 300 UNITS/3 ML INSULN.PEN. SQ SCH (21:27)
[2017-06-09 23:00] VITALS: BP 178/95
[2017-06-09] MEDS: ACETAMINOPHEN 325 MG TABLET. PO PRN (23:35)
[2017-06-10] VITALS (7 sets, daily range): BP systolic 144–184; BP diastolic 80–106
[2017-06-10] MEDS: PIPERACILLIN/TAZO IV Push 4.5 GM VIAL. IVP SCH ×4 (05:42→23:35)
[2017-06-10] MEDS: VANCOMYCIN 1.5 GM in IV DEXTROSE 5% 500 ML IV SCH ×3 (05:43→22:08)
[2017-06-10] MEDS ORDERED: BUPIVACAINE-EPI 0.25%-1:200000 50 ML VIAL. ONE (07:14)
[2017-06-10] MEDS: INSULIN ASPART 300 UNITS/3 ML INSULN.PEN SQ SCH ×6 (07:30→17:00)
[2017-06-10] MEDS: ALBUTEROL SULFATE 2.5 MG/3 ML NEBU. NEB SCH ×4 (07:45→20:14)
[2017-06-10] MEDS: BUDESONIDE 0.5 MG/2 ML NEBU. NEB SCH ×2 (07:45→20:13)
[2017-06-10] MEDS ORDERED: fentaNYL PF VIAL 100 MCG/2 ML VIAL ONE ×2 (08:42→09:54)
[2017-06-10] MEDS ORDERED: ONDANSETRON PF 4 MG/2 ML VIAL. ONE (08:55)
[2017-06-10] MEDS ORDERED: SEVOFLURANE 31 TO 60 MINUTES. IH ONE (08:55)
[2017-06-10] MEDS ORDERED: PROPOFOL 20 ML IV ONE (08:55)
[2017-06-10] MEDS ORDERED: LIDOCAINE 2% PF Vial for OR 5 ML VIAL. ONE (08:55)
--- NOTE | 2017-06-10 09:14 | PDOC4 ---
Operative Note Operative Note Date of Procedure: June 10, 2017 Pre-Op Diagnosis: Osteomyelitis left foot Post-Op Diagnosis: Same Procedure: Incision and drainage left foot, with excisional debridement of skin, subcutaneous tissue, fascia, tendon, and bone Surgeon: Keyur Hoang MD Oleo Hasher And Renderer: Priscilla Reed PA-C Anesthesia: General EBL: 10 mL Specimens Obtained: none Complications: none Drains: none Indications for Procedure: The patient is a 36-year-old man with severe competitions of diabetes, including some neuropathy, and with a persistent infection in the left foot. He has purulent drainage between the fourth and third toes, plantar ulcers which have not been responding to wound care, and MRI changes including the fourth and fifth metatarsal heads consistent with osteomyelitis. The patient and I discussed the risks, benefits and alternatives of surgery. I recommended surgical debridement to improve the chances of healing. He remains on scheduled antibiotics. Procedure in Detail: The patient was identified in the preoperative holding area. The correct extremity was marked by me. The patient was taken to the operating room where general anesthesia was used. The patient was positioned supine on the operating table. The patient remains on schedule anabolic so no additional doses were given. A tourniquet was placed on the thigh. A timeout procedure was performed. Due to his shellfish allergy the limb was prepared with chlorhexidine. Sterile drapes were applied. The limb was elevated to exsanguinate it. The tourniquet was inflated to 350 mmHg. I did plantar debridement first, using a rongeurs and a scalpel, removing skin and subcutaneous cutaneous tissue, and debrided the plantar aspect of the ulcer. I did not want to make a large plantar incision as these are difficult to heal, and a dorsal approach is recommended. I made a dorsal incision over the fourth metatarsal, and extended this into the open wound between the third and fourth toes. Some purulent drainage was noted. Cultures were taken. I did excisional debridement of some of the nonviable tissue primarily over the fourth metatarsal. I extended the deep incision laterally to access the fifth metatarsal. I used a rongeurs to remove some of the nonviable bone. The bony structures are basically intact however. There was no large abscess. Copious irrigation was used. The tourniquet was released. Bovie electrocautery was used for hemostasis. The dorsal incision was closed in a single layer with 2-0 nylon suture. Priscilla my lpn or medical assistant completed the skin closure and placed a sterile dressing. Offloading should be used with a half shoe to allow healing. Continue careful diabetic management. KEYUR HOANG MD Jun 10, 2017 09:14
[2017-06-10] MEDS ORDERED: DEXTROSE 50% 25 GM / 50ML DISP.SYRIN. IV PRN (09:15)
[2017-06-10] MEDS ORDERED: fentaNYL PF VIAL 100 MCG/2 ML VIAL IV PRN ×2 (09:15→10:15)
[2017-06-10] MEDS ORDERED: MORPHINE SULFATE 4 MG/ML DISP.SYRIN. IV PRN ×2 (09:15)
[2017-06-10] MEDS ORDERED: POLYETHYLENE GLYCOL 3350 17 GM PACKET. PO PRN (09:15)
[2017-06-10] MEDS ORDERED: oxyCODONE IR 5 MG TABLET PO PRN (09:15)
--- NOTE | 2017-06-10 09:41 | PDOC ---
PROGRESS NOTES Chief Complaint Chief Complaint L foot wound ASSESSMENT AND PLAN: 1. L ant foot puncture wound: cellulitis with osteomyelitis of the fifth metatarsal and proximal fifth phalanx, also suspicion for osteo of the distal fourth metatarsal and proximal fourth phalanx on MRI. cont broad spectrum Abx. surgery today 2. Sepsis: fever, tachycardia, leukocytosis improving 3. DM2: fair control here, poor at home with HgbA1c 8.9. monitor with ISS on current regimen; may need adjustment when infection better controlled 4. Anemia: iron studies c/w inflammation, not iron deficiency. low dose daily PO iron repletion 5. Hypoalbuminemia: 2/2 inflammation 6. morbid obesity BMI 42: dietary teaching 7. Prophylaxis: on hold History of Present Illness History of Present Illness feels ok; states foot wound "exploded" in past few days. Vitals Vitals Vital Signs Date Time Temp Pulse Resp B/P (MAP) Pulse Ox O2 Delivery O2 Flow Rate FiO2 06/10/17 09:15 Mask 10 06/10/17 09:12 97.8 102 12 101/44 94 97.8 Physical Exam General: Alert, Oriented X3, Cooperative, No acute distress Heart: Regular rate Lungs: Clear Abdomen: Soft, No tenderness, Other (massive ly obese) Extremities: No clubbing, No cyanosis, Normal pulses, Other (Trace edema to bilateral lower extremities ) Skin: No rashes, Other (left platar wound , left 3 toe blister. malodorous) Labs LABS Laboratory Tests Test 06/09/17 11:24 06/09/17 16:35 06/09/17 21:02 06/10/17 07:34 Glucose (Fingerstick) 138 mg/dL (70-99) 116 mg/dL (70-99) 153 mg/dL (70-99) 145 mg/dL (70-99) Test 06/10/17 09:22 Glucose (Fingerstick) 192 mg/dL (70-99) HERNANDO DEVINE MD Jun 10, 2017 09:41
[2017-06-10] MEDS ORDERED: IV RINGERS,LACTATED 1000ML 1,000 ML IV SCH (09:54)
[2017-06-10] MEDS ORDERED: HYDROmorphone 2 MG/ML VIAL IV PRN (10:00)
[2017-06-10] MEDS ORDERED: PROCHLORPERAZINE 10 MG/2 ML VIAL. IV PRN (10:00)
[2017-06-10] MEDS ORDERED: LIDOCAINE 1% PF 2 ML VIAL. ID PRN (10:00)
[2017-06-10] MEDS: MORPHINE SULFATE 2 MG/ML DISP.SYRIN. IV PRN ×2 (10:25→10:35)
[2017-06-10] MEDS: LACTOBACILLUS RHAMNOSUS GG 1 CAPSULE. PO SCH ×2 (10:46→22:07)
[2017-06-10] MEDS: oxyCODONE IR 5 MG TABLET PO PRN (10:46)
[2017-06-10] MEDS: LISINOPRIL 10 MG TABLET PO SCH (10:47)
[2017-06-10] MEDS: FLUCONAZOLE 100 MG TABLET. PO SCH (10:47)
[2017-06-10] MEDS: hydrALAZINE 20 MG/ML VIAL. IVP PRN ×2 (10:47→15:34)
[2017-06-10] MEDS: SENNOSIDES/DOCUSATE 8.6/50MG TABLET. PO SCH (12:28)
[2017-06-10] MEDS: ASPIRIN 325 MG TABLET PO SCH (12:28)
[2017-06-10] MEDS: HYDROcodone/APAP 7.5/325MG 1 TAB TABLET PO PRN ×2 (13:52→22:07)
[2017-06-10] MEDS: VANCOMYCIN PER PHARMACY MC PRN (14:20)
--- NOTE | 2017-06-10 15:35 | PDOC ---
Infectious Disease Note Subjective Subjective s/p surgery c/o pain and headache Feels cold Tmax 100.3 ROS ROS CV: Denies chest pain RESP: Denies shortness of air, cough GI: Denies n/v/d Vital Sign Vital Signs Vital Signs Date Time Temp Pulse Resp B/P (MAP) Pulse Ox O2 Delivery O2 Flow Rate FiO2 06/10/17 13:52 95 Nasal Cannula 2.0 06/10/17 11:00 98.1 93 18 184/96 (125) 98.1 Physical Exam PHYSICAL EXAM GENERAL: Lying down, shivering LUNGS: Clear HEART: S1S2, no gallop, no murmur ABD: Soft, NT, BS active EXT: Left foot post-op dressing dry and intact; toes warm & wiggly STATION EXAMINER: Awake, oriented x 3. SKIN: No rash Labs Lab Laboratory Tests Test 06/09/17 16:35 06/09/17 21:02 06/10/17 07:34 06/10/17 09:22 Glucose (Fingerstick) 116 mg/dL (70-99) 153 mg/dL (70-99) 145 mg/dL (70-99) 192 mg/dL (70-99) Test 06/10/17 13:05 Vancomycin Level Trough 16.6 mcg/mL (10.0-20.0) Vancomycin Last Dose Date 06/10/17 Vancomycin Last Dose Time 0600 Micro Left foot (06/10) intra-op GRAM STAIN Final WBCS NONE SEEN ORGANISMS NONE SEEN Left toe 06/08 ANAEROBIC RES 1 PENDING AEROBIC RES 1 Preliminary Proteus mirabilis Antibiotic RSLT#1 Amoxicillin/Clavulanic Acid S Ampicillin S Cefepime S Ceftriaxone S Cefuroxime S Ciprofloxacin S Ertapenem S Gentamicin S Levofloxacin S Piperacillin S Tetracycline R Tobramycin S Trimethoprim/Sulfa S Objective Assessment Left plantar foot wound w/ osteo 4th & 5th toes on MRI. s/p I and D with excisional debridement of skin, subcutaneous tissue, fascia, tendon, and bone, closed, Jun 10. gram stain no organisms Left third toe infection, Proteus so far (06/08) DM Fever - better Plan Plan of Care vanc, Zosyn and Diflucan Trough 16.6 Probiotics f/u labs and cults Elevation PT SEEN ,EXAMINED ,D/W SALES DEMONSTRATOR CONTINUE SAME FELICITAS VALDES APRN Jun 10, 2017 15:35 BLANCA DEAL MD Jun 10, 2017 18:38
[2017-06-10 17:21] LABS: OBC FLU VALID
[2017-06-10] MEDS ORDERED: ONDANSETRON PF 4 MG/2 ML VIAL. IV PRN (17:30)
[2017-06-10] MEDS: ONDANSETRON PF 4 MG/2 ML VIAL. IV PRN ×2 (18:06→22:08)
[2017-06-10] MEDS: INSULIN DETEMIR 300 UNITS/3 ML INSULN.PEN. SQ SCH (21:00)
[2017-06-10] MEDS: ATORVASTATIN CALCIUM 10 MG TABLET. PO SCH (22:07)
[2017-06-10] MEDS: METOPROLOL TART IMMED RELEASE 25 MG TABLET. PO SCH (22:07)
[2017-06-10] MEDS: ZOLPIDEM 5 MG TABLET. PO PRN (22:07)
[2017-06-11 03:00] VITALS: BP 151/86
[2017-06-11 04:28] LABS: HEMATOCRIT 35.8 % (39.0-53.0); HEMOGLOBIN 11.6 g/dL (13.0-17.5)
[2017-06-11] MEDS: PIPERACILLIN/TAZO IV Push 4.5 GM VIAL. IVP SCH ×4 (04:58→22:11)
[2017-06-11] MEDS: VANCOMYCIN 1.5 GM in IV DEXTROSE 5% 500 ML IV SCH ×3 (04:59→22:11)
[2017-06-11] MEDS ORDERED: MAGNESIUM HYDROXIDE 2,400 MG/30 ML ORAL.SUSP. PO PRN (06:00)
[2017-06-11 07:00] VITALS: BP 144/80
[2017-06-11] MEDS: INSULIN ASPART 300 UNITS/3 ML INSULN.PEN SQ SCH ×6 (08:00→17:25)
[2017-06-11] MEDS: ALBUTEROL SULFATE 2.5 MG/3 ML NEBU. NEB SCH ×4 (08:23→19:53)
[2017-06-11] MEDS: BUDESONIDE 0.5 MG/2 ML NEBU. NEB SCH ×2 (08:23→19:52)
[2017-06-11] MEDS: METOPROLOL TART IMMED RELEASE 25 MG TABLET. PO SCH ×2 (08:33→21:47)
[2017-06-11] MEDS: SENNOSIDES/DOCUSATE 8.6/50MG TABLET. PO SCH (08:33)
[2017-06-11] MEDS: LACTOBACILLUS RHAMNOSUS GG 1 CAPSULE. PO SCH ×2 (08:33→21:47)
[2017-06-11] MEDS: ASPIRIN 325 MG TABLET PO SCH (08:33)
[2017-06-11] MEDS: HYDROcodone/APAP 7.5/325MG 1 TAB TABLET PO PRN ×2 (08:34→21:46)
[2017-06-11] MEDS: FLUCONAZOLE 100 MG TABLET. PO SCH (08:34)
[2017-06-11] MEDS: ONDANSETRON PF 4 MG/2 ML VIAL. IV PRN (09:01)
[2017-06-11] MEDS: LISINOPRIL 10 MG TABLET PO SCH (09:01)
--- NOTE | 2017-06-11 10:27 | PDOC ---
Infectious Disease Note Subjective Subjective s/p surgery c/o pain and headache Feels cold Tmax 100.3 ROS ROS GEN: Denies fevers, chills, sweats HEENT: Denies blurred vision, sore throat CV: Denies chest pain RESP: Denies shortness of air, cough GI: Denies n/v/d NEURO: Denies confusion, dizziness MSK: Denies weakness, joint pain/swelling Vital Sign Vital Signs Vital Signs Date Time Temp Pulse Resp B/P (MAP) Pulse Ox O2 Delivery O2 Flow Rate FiO2 06/11/17 09:01 97 144/80 06/11/17 08:34 Room Air 06/11/17 08:26 92 06/11/17 07:00 98.1 18 98.1 06/10/17 23:07 2.0 Physical Exam PHYSICAL EXAM GENERAL: NAD, Alert HEENT: PERRL, OC/OP NECK: Supple, no JVD, no LN LUNGS: Clear HEART: S1S2, no gallop, no murmur ABD: Soft, NT, no organomegaly, no rebound EXT: No edema, no cyanosis POKER DEALER: Alert, oriented x 3, no focal neurologic deficit SKIN: No rash IV: ok Labs Lab Laboratory Tests Test 06/10/17 11:41 06/10/17 12:50 06/10/17 13:05 06/10/17 16:55 Glucose (Fingerstick) 204 mg/dL (70-99) 101 mg/dL (70-99) Influenza Type A Antigen Negative (NEGATIVE) Influenza Type B Antigen Negative (NEGATIVE) Vancomycin Level Trough 16.6 mcg/mL (10.0-20.0) Vancomycin Last Dose Date 06/10/17 Vancomycin Last Dose Time 0600 Test 06/10/17 20:36 06/11/17 03:45 06/11/17 07:27 Glucose (Fingerstick) 92 mg/dL (70-99) 158 mg/dL (70-99) Hemoglobin 11.6 g/dL (13.0-17.5) Hematocrit 35.8 % (39.0-53.0) Mean Corpuscular Hemoglobin Concent 32 g/dL (31-37) Objective Assessment Left plantar foot wound w/ osteo 4th & 5th toes on MRI. s/p I and D with excisional debridement of skin, subcutaneous tissue, fascia, tendon, and bone, closed, Jun 10. gram stain no organisms Left third toe infection, Proteus so far (06/08) DM Fever - better Plan Plan of Care vanc, Zosyn and Diflucan,, change to rocephine, will have to come here every day for iv Trough 16.6 Probiotics f/u labs and cults Elevation AMY DEAL MD Jun 11, 2017 10:27
[2017-06-11 11:00] VITALS: BP 144/84
--- NOTE | 2017-06-11 11:43 | PDOC ---
PROGRESS NOTES Chief Complaint Chief Complaint L foot wound ASSESSMENT AND PLAN: 1. L ant foot puncture wound: cellulitis with osteomyelitis of the fifth metatarsal and proximal fifth phalanx, also suspicion for osteo of the distal fourth metatarsal and proximal fourth phalanx on MRI. cont broad spectrum Abx. surgery today 2. Sepsis: fever, tachycardia, leukocytosis improving 3. DM2: fair control here, poor at home with HgbA1c 8.9. monitor with ISS on current regimen; may need adjustment when infection better controlled 4. Anemia: iron studies c/w inflammation, not iron deficiency. low dose daily PO iron repletion 5. Hypoalbuminemia: 2/2 inflammation 6. morbid obesity BMI 42: dietary teaching 7. Prophylaxis: on hold History of Present Illness History of Present Illness Wound inspected, swollen some draining blood but getting better per pt account Asks when he can dc ID note reviewed, needs to be on IV abx NO leukocytosis, no fevers PLAn: Consult SW for IV abx dc plans CAn ebar weight somewhat on that extremity Vitals Vitals Vital Signs Date Time Temp Pulse Resp B/P (MAP) Pulse Ox O2 Delivery O2 Flow Rate FiO2 06/11/17 09:34 92 Room Air 2.0 06/11/17 09:01 97 144/80 06/11/17 07:00 98.1 18 98.1 Physical Exam General: Alert, Oriented X3, Cooperative, No acute distress Heart: Regular rate Lungs: Clear Abdomen: Soft, No tenderness, Other (massive ly obese) Extremities: No clubbing, No cyanosis, Normal pulses, Other (Trace edema to bilateral lower extremities ) Skin: No rashes, Other (left platar wound , left 3 toe blister. malodorous) Labs LABS Laboratory Tests Test 06/10/17 12:50 06/10/17 13:05 06/10/17 16:55 06/10/17 20:36 Influenza Type A Antigen Negative (NEGATIVE) Influenza Type B Antigen Negative (NEGATIVE) Vancomycin Level Trough 16.6 mcg/mL (10.0-20.0) Vancomycin Last Dose Date 06/10/17 Vancomycin Last Dose Time 0600 Glucose (Fingerstick) 101 mg/dL (70-99) 92 mg/dL (70-99) Test 06/11/17 03:45 06/11/17 07:27 06/11/17 10:59 Hemoglobin 11.6 g/dL (13.0-17.5) Hematocrit 35.8 % (39.0-53.0) Mean Corpuscular Hemoglobin Concent 32 g/dL (31-37) Glucose (Fingerstick) 158 mg/dL (70-99) 86 mg/dL (70-99) Review of Systems Review of Systems leg pain, no nasuea, emesis, cp or soa Assessment and Plan Assessmemt and Plan Problems Medical Problems: (1) Foot ulcer, left Status: Acute Problems: Comment Review of Relevant I have reviewed the following items bharti (where applicable) has been applied. Labs Laboratory Tests Test 06/09/17 16:35 06/09/17 21:02 06/10/17 07:34 06/10/17 09:22 Glucose (Fingerstick) 116 mg/dL (70-99) 153 mg/dL (70-99) 145 mg/dL (70-99) 192 mg/dL (70-99) Test 06/10/17 11:41 06/10/17 12:50 06/10/17 13:05 06/10/17 16:55 Glucose (Fingerstick) 204 mg/dL (70-99) 101 mg/dL (70-99) Influenza Type A Antigen Negative (NEGATIVE) Influenza Type B Antigen Negative (NEGATIVE) Vancomycin Level Trough 16.6 mcg/mL (10.0-20.0) Vancomycin Last Dose Date 06/10/17 Vancomycin Last Dose Time 0600 Test 06/10/17 20:36 06/11/17 03:45 06/11/17 07:27 06/11/17 10:59 Glucose (Fingerstick) 92 mg/dL (70-99) 158 mg/dL (70-99) 86 mg/dL (70-99) Hemoglobin 11.6 g/dL (13.0-17.5) Hematocrit 35.8 % (39.0-53.0) Mean Corpuscular Hemoglobin Concent 32 g/dL (31-37) Laboratory Tests Test 06/10/17 12:50 06/10/17 13:05 06/10/17 16:55 06/10/17 20:36 Influenza Type A Antigen Negative (NEGATIVE) Influenza Type B Antigen Negative (NEGATIVE) Vancomycin Level Trough 16.6 mcg/mL (10.0-20.0) Vancomycin Last Dose Date 06/10/17 Vancomycin Last Dose Time 0600 Glucose (Fingerstick) 101 mg/dL (70-99) 92 mg/dL (70-99) Test 06/11/17 03:45 06/11/17 07:27 06/11/17 10:59 Hemoglobin 11.6 g/dL (13.0-17.5) Hematocrit 35.8 % (39.0-53.0) Mean Corpuscular Hemoglobin Concent 32 g/dL (31-37) Glucose (Fingerstick) 158 mg/dL (70-99) 86 mg/dL (70-99) Microbiology 06/07/17 Blood Culture - Preliminary, Resulted NO GROWTH AFTER 3 DAYS 06/10/17 Gram Stain - Final, Complete Medications Current Medications Sodium Chloride 1,000 ml @ 1,000 mls/hr 1X ONCE IV Last administered on 06/07 16:11; Start 06/07/17 at 15:00; Stop 06/07/17 at 15:59; Status DC Ibuprofen (Motrin) 800 mg 1X ONCE PO Last administered on 06/07/17 16:45; Start 06/07/17 at 16:45; Stop 06/07/17 at 16:48; Status DC Iohexol (Omnipaque 300 Mg/ml) 75 ml 1X ONCE IV ; Start 06/07/17 at 17:00; Stop 06/07/17 at 17:03; Status DC Vancomycin HCl (Vanco Per Pharmacy) 1 each PRN DAILY PRN MC SEE COMMENTS Last administered on 06/10/17 14:20; Start 06/07/17 at 17:00 Piperacillin Sod/ Tazobactam Sod (Zosyn Per Pharmacy) 1 each PRN DAILY PRN MC SEE COMMENTS; Start 06/07/17 at 17:00; Status UNV Vancomycin HCl 2 gm/Dextrose 500 ml @ 250 mls/hr 1X ONCE IV Last administered on 06/07/17 17:47; Start 06/07/17 at 17:30; Stop 06/07/17 at 19 :29; Status DC Piperacillin Sod/ Tazobactam Sod (Zosyn) 3.375 gm 1X ONCE IVP Last administered on 06/07/17 17:44; Start 06/07/17 at 17:15; Stop 06/07/17 at 17 :16; Status DC Ondansetron HCl (Zofran) 4 mg PRN Q8HRS PRN IV NAUSEA/VOMITING; Start at 18:15; Stop 06/08/17 at 18:14; Status DC Fentanyl Citrate (Fentanyl 2ml Vial) 50 mcg PRN Q1HR PRN IV PAIN; Start at 18:15; Stop 06/08/17 at 18:14; Status DC Sodium Chloride 1,000 ml @ 125 mls/hr Q8H IV Last administered on 06/08/17 12:20; Start 06/07/17 at 18:12; Stop 06/08/17 at 18:11; Status DC Acetaminophen (Tylenol) 650 mg PRN Q4HRS PRN PO FEVER; Start 06/07/17 at 18:15 ; Stop 06/08/17 at 18:14; Status DC Albuterol Sulfate (Ventolin Neb Soln) 2.5 mg QID NEB Last administered on 06/11 08:23; Start 06/07/17 at 21:00 Budesonide (Pulmicort) 0.5 mg BID NEB Last administered on 06/11/17 08:23; Start 06/07/17 at 21:00 Enoxaparin Sodium (Lovenox Per Pharmacy Prophylaxis Dosing) 1 each PRN DAILY PRN MC SEE COMMENTS; Start 06/07/17 at 19:15; Status UNV Oxycodone HCl (Roxicodone) 5 mg PRN Q4HRS PRN PO pain Last administered on 10:46; Start 06/07/17 at 19:15; Stop 06/10/17 at 14:23; Status DC Zolpidem Tartrate (Ambien) 5 mg PRN QHS PRN PO INSOMNIA Last administered on 22:07; Start 06/07/17 at 19:15 Piperacillin Sod/ Tazobactam Sod (Zosyn) 3.375 gm Q6HRS IVP Last administered on 06/08/17 12:20; Start 06/08/17 at 00:00; Stop 06/08/17 at 13:47; Status DC Lisinopril (Prinivil) 10 mg DAILY PO Last administered on 06/11/17 09:01; Start 06/08/17 at 09:00 Atorvastatin Calcium (Lipitor) 10 mg QHS PO Last administered on 06/10/17 22: 07; Start 06/07/17 at 21:00 Insulin Detemir (Levemir) 40 units QHS SQ Last administered on 06/09/17 21:27 ; Start 06/07/17 at 21:00 Insulin Aspart (NovoLOG) 30 units TIDAC SQ Last administered on 06/11/17 08: 41; Start 06/08/17 at 07:30 Insulin Aspart (NovoLOG) 0-9 UNITS TIDWMEALS SQ Last administered on 12:36; Start 06/08/17 at 08:00 Dextrose (Dextrose 50%-Water Syringe) 12.5 gm PRN Q15MIN PRN IV SEE COMMENTS; Start 06/07/17 at 19:15; Stop 06/10/17 at 13:22; Status DC Vancomycin HCl 2 gm/Dextrose 500 ml @ 250 mls/hr Q12H IV Last administered on 06/09/17 06:00; Start 06/08/17 at 06:00; Stop 06/09/17 at 06:58; Status DC Vancomycin HCl 1 each 1X ONCE MC Last administered on 06/09/17 05:30; Start 06/09/17 at 05:30; Stop 06/09/17 at 05:31; Status DC Piperacillin Sod/ Tazobactam Sod 4.5 gm/Dextrose 100 ml @ 200 mls/hr Q6HRS IV ; Start 06/08/17 at 18:00; Stop 06/08/17 at 18:00; Status DC Fluconazole (Diflucan) 200 mg DAILY PO Last administered on 06/11/17 08:34; Start 06/08/17 at 13:45 Piperacillin Sod/ Tazobactam Sod (Zosyn) 4.5 gm Q6HRS IVP Last administered on 06/11/17 04:58; Start 06/08/17 at 13:45 Acetaminophen (Tylenol) 650 mg PRN Q6HRS PRN PO FEVER Last administered on 23:35; Start 06/08/17 at 16:00 Ondansetron HCl (Zofran) 4 mg PRN Q6HRS PRN IV NAUSEA/VOMITING; Start at 16:00; Stop 06/10/17 at 14:24; Status DC Morphine Sulfate 2 mg PRN Q2HR PRN IV PAIN; Start 06/08/17 at 16:00 Tramadol HCl (Ultram) 50 mg PRN Q6HRS PRN PO PAIN; Start 06/08/17 at 16:00 Hydralazine HCl (Apresoline Inj) 10 mg PRN Q4HRS PRN IVP ELEVATED BP, SEE COMMENTS Last administered on 06/10/17 15:34; Start 06/08/17 at 16:00 Docusate Sodium (Colace) 100 mg PRN DAILY PRN PO CONSTIPATION; Start 06/08/17 at 16:00 Iron Sucrose 200 mg/Sodium Chloride 110 ml @ 55 mls/hr DAILY IV ; Start at 16:30; Stop 06/11/17 at 10:00; Status UNV Iron Sucrose 200 mg/Miscellaneous 11 ml @ 132 mls/hr DAILY IV Last administered on 06/09/17 08:22; Start 06/08/17 at 16:30; Stop 06/09/17 at 13 :54; Status DC Vancomycin HCl 1.5 gm/Dextrose 500 ml @ 250 mls/hr Q8H IV Last administered on 06/11/17 04:59; Start 06/09/17 at 14:00 Vancomycin HCl 1 each 1X ONCE MC Last administered on 06/10/17 13:30; Start 06/10/17 at 13:30; Stop 06/10/17 at 13:31; Status DC Lactobacillus Rhamnosus (Culturelle) 1 cap BID PO Last administered on 08:33; Start 06/09/17 at 21:00 Bupivacaine HCl/ Epinephrine Bitart (Marcaine-Epi 0.25%-[id number]) 50 ml STK-MED ONCE .ROUTE ; Start 06/10/17 at 07:14; Stop 06/10/17 at 07:15; Status DC Fentanyl Citrate (Fentanyl 2ml Vial) 100 mcg STK-MED ONCE .ROUTE ; Start at 08:42; Stop 06/10/17 at 08:43; Status DC Propofol 20 ml @ As Directed STK-MED ONCE IV ; Start 06/10/17 at 08:55; Stop 06/10/17 at 08:56; Status DC Lidocaine HCl (Lidocaine Pf 2% Vial) 5 ml STK-MED ONCE .ROUTE ; Start 06/10/17 at 08:55; Stop 06/10/17 at 08:56; Status DC Ondansetron HCl (Zofran) 4 mg STK-MED ONCE .ROUTE ; Start 06/10/17 at 08:55; Stop 06/10/17 at 08:56; Status DC Sevoflurane (Ultane) 30 ml STK-MED ONCE IH ; Start 06/10/17 at 08:55; Stop at 08:56; Status DC Oxycodone HCl (Roxicodone) 5 mg PRN Q3HRS PRN PO PAIN; Start 06/10/17 at 09:15 Morphine Sulfate 2 mg PRN Q1HR PRN IV PAIN; Start 06/10/17 at 09:15 Fentanyl Citrate (Fentanyl 2ml Vial) 25 mcg PRN Q1HR PRN IV PAIN; Start at 09:15 Senna/Docusate Sodium (Senna Plus) 1 tab DAILY PO Last administered on 08:33; Start 06/10/17 at 12:00 Polyethylene Glycol (miraLAX PACKET) 17 gm PRN DAILY PRN PO CONSTIPATION; Start 06/10/17 at 09:15 Ondansetron HCl (Zofran) 4 mg PRN Q4HRS PRN IV NAUSEA/VOMITING Last administered on 06/11/17 09:01; Start 06/10/17 at 09:15 Aspirin (Winnie Aspirin) 325 mg DAILYWBKFT PO Last administered on 06/11/17 08 :33; Start 06/10/17 at 12:00 Magnesium Hydroxide (Milk Of Magnesia) 2,400 mg 1X PRN PRN PO CONSTIPATION; Start 06/11/17 at 06:00; Stop 06/12/17 at 05:59 Bisacodyl (Dulcolax Supp) 10 mg 1X PRN PRN [place] CONSTIPATION; Start 06/11/17 at 16:00; Stop 06/12/17 at 15:59 Acetaminophen/ Hydrocodone Bitart (Lortab 7.5/325) 1 tab PRN Q4HRS PRN PO PAIN ; Start 06/10/17 at 09:15 Morphine Sulfate 4 mg PRN Q2HR PRN IV PAIN Last administered on 06/10/17 15: 38; Start 06/10/17 at 09:15; Stop 06/10/17 at 17:26; Status DC Acetaminophen/ Hydrocodone Bitart (Lortab 7.5/325) 2 tab PRN Q4HRS PRN PO PAIN Last administered on 06/11/17 08:34; Start 06/10/17 at 09:15 Dextrose (Dextrose 50%-Water Syringe) 12.5 gm PRN Q15MIN PRN IV SEE COMMENTS; Start 06/10/17 at 09:15 Fentanyl Citrate (Fentanyl 2ml Vial) 100 mcg STK-MED ONCE .ROUTE ; Start at 09:54; Stop 06/10/17 at 09:55; Status DC Morphine Sulfate 1 mg PRN Q10MIN PRN IV SEVERE PAIN Last administered on 10:35; Start 06/10/17 at 10:00; Stop 06/10/17 at 23:00; Status DC Ringer's Solution 1,000 ml @ 30 mls/hr Q24H IV Last administered on 09:20; Start 06/10/17 at 09:54; Stop 06/10/17 at 21:53; Status DC Lidocaine HCl (Xylocaine-Mpf 1% Vial) 2 ml 1X PRN PRN ID IV START; Start 06/10 at 10:00; Stop 06/10/17 at 23:00; Status DC Hydromorphone HCl (Dilaudid) 0.5 mg PRN Q10MIN PRN IV SEV PAIN, Second choice; Start 06/10/17 at 10:00; Stop 06/10/17 at 23:00; Status DC Prochlorperazine Edisylate (Compazine) 5 mg PACU PRN PRN IV NAUSEA, MRX1; Start 06/10/17 at 10:00; Stop 06/10/17 at 23:00; Status DC Fentanyl Citrate (Fentanyl 2ml Vial) 50 mcg PRN Q5MIN PRN IV Acute Pain; Start 06/10/17 at 10:15; Stop 06/11/17 at 10:14; Status DC Ondansetron HCl (Zofran) 4 mg PRN Q6HRS PRN IV NAUSEA/VOMITING; Start at 17:30 Metoprolol Tartrate (Lopressor) 25 mg BID PO Last administered on 06/11/17t 08 :33; Start 06/10/17 at 21:00 Active Scripts Active Bactrim Ds Tablet (Sulfamethoxazole/Trimethoprim) 1 Each Tablet 1 Tab PO BID Vitals/I & O Vital Sign - Last 24 Hours 06/10/17 06/10/17 06/10/17 06/10/17 12:29 13:52 15:00 15:33 Pulse 109 Resp 22 B/P (MAP) 174/106 (128) Pulse Ox 95 95 95 97 O2 Delivery Nasal Cannula Nasal Cannula Room Air Room Air O2 Flow Rate 2.0 2.0 06/10/17 06/10/17 06/10/17 06/10/17 15:34 15:38 16:13 17:36 Pulse 93 115 B/P (MAP) 184/96 172/102 (125) Pulse Ox 97 97 O2 Delivery Nasal Cannula Nasal Cannula O2 Flow Rate 2.0 2.0 06/10/17 06/10/17 06/10/17 06/10/17 19:00 20:00 20:15 22:07 Temp 98.8 98.8 Pulse 107 Resp 18 18 B/P (MAP) 147/80 (102) Pulse Ox 93 93 O2 Delivery Room Air Room Air Room Air Room Air O2 Flow Rate 2.0 06/10/17 06/10/17 06/10/17 06/11/17 22:07 23:00 23:07 03:00 Temp 98.6 98.4 98.6 98.4 Pulse 100 102 88 Resp 18 18 18 B/P (MAP) 149/83 170/83 (112) 151/86 (107) Pulse Ox 94 95 O2 Delivery Room Air Room Air 06/11/17 06/11/17 06/11/17 06/11/17 07:00 08:25 08:26 08:33 Temp 98.1 98.1 Pulse 97 97 Resp 18 B/P (MAP) 144/80 (101) 144/80 Pulse Ox 93 92 92 O2 Delivery Room Air Room Air Room Air 06/11/17 06/11/17 06/11/17 08:34 09:01 09:34 Pulse 97 B/P (MAP) 144/80 Pulse Ox 92 O2 Delivery Room Air Room Air O2 Flow Rate 2.0 Intake and Output 11/19/17 11/19/17 11/20/17 15:00 23:00 07:00 Intake Total 1040 ml 100 ml 1420 ml Output Total 1200 ml Balance -160 ml 100 ml 1420 ml KARIME LOPEZ MD Jun 11, 2017 11:43
[2017-06-11] MEDS: VANCOMYCIN PER PHARMACY MC PRN (12:07)
--- NOTE | 2017-06-11 14:10 | PDOC ---
PROGRESS NOTES Subjective Subjective Doing well. States he has an occasional burning sensation to foot. Objective Vital Signs Vital Signs Date Time Temp Pulse Resp B/P (MAP) Pulse Ox O2 Delivery O2 Flow Rate FiO2 06/11/17 12:09 Room Air 06/11/17 11:00 98.2 95 18 144/84 (104) 93 98.2 06/11/17 09:34 2.0 Physical Exam Lying in bed. Left foot dressing has been removed, xeroform remains intact over dorsal incision. Plantar foot wound open to air. Good dorsiflexion and plantarflexion of foot and ankle. Calf soft and nontender with negative Marci's sign. Neurovascularly intact. Labs Laboratory Tests Test 06/09/17 16:35 06/09/17 21:02 06/10/17 07:34 06/10/17 09:22 Glucose (Fingerstick) 116 mg/dL (70-99) 153 mg/dL (70-99) 145 mg/dL (70-99) 192 mg/dL (70-99) Test 06/10/17 11:41 06/10/17 12:50 06/10/17 13:05 06/10/17 16:55 Glucose (Fingerstick) 204 mg/dL (70-99) 101 mg/dL (70-99) Influenza Type A Antigen Negative (NEGATIVE) Influenza Type B Antigen Negative (NEGATIVE) Vancomycin Level Trough 16.6 mcg/mL (10.0-20.0) Vancomycin Last Dose Date 06/10/17 Vancomycin Last Dose Time 0600 Test 06/10/17 20:36 06/11/17 03:45 06/11/17 07:27 06/11/17 10:59 Glucose (Fingerstick) 92 mg/dL (70-99) 158 mg/dL (70-99) 86 mg/dL (70-99) Hemoglobin 11.6 g/dL (13.0-17.5) Hematocrit 35.8 % (39.0-53.0) Mean Corpuscular Hemoglobin Concent 32 g/dL (31-37) Laboratory Tests Test 06/10/17 16:55 06/10/17 20:36 06/11/17 03:45 06/11/17 07:27 Glucose (Fingerstick) 101 mg/dL (70-99) 92 mg/dL (70-99) 158 mg/dL (70-99) Hemoglobin 11.6 g/dL (13.0-17.5) Hematocrit 35.8 % (39.0-53.0) Mean Corpuscular Hemoglobin Concent 32 g/dL (31-37) Test 06/11/17 10:59 Glucose (Fingerstick) 86 mg/dL (70-99) Assessment Assessment POD #1 left foot I&D Problems: Plan Plan of Care Continue POC. He states wound care has been by but he is not sure of their plan and no notes in the chart. He will go home on IV abx, per ID. Followup with [facility] in 10-14 days. He has not yet gotten halfshoe. MINA NAVARRO Jun 11, 2017 14:10
[2017-06-11 15:00] VITALS: BP 152/86
[2017-06-11] MEDS ORDERED: BISACODYL 10 MG SUPP.RECT. PR PRN (16:00)
[2017-06-11 19:00] VITALS: BP 172/106
[2017-06-11] MEDS: ATORVASTATIN CALCIUM 10 MG TABLET. PO SCH (21:47)
[2017-06-11] MEDS: ZOLPIDEM 5 MG TABLET. PO PRN (21:47)
[2017-06-11] MEDS: INSULIN DETEMIR 300 UNITS/3 ML INSULN.PEN. SQ SCH (22:01)
[2017-06-11 23:00] VITALS: BP 150/93
[2017-06-12 03:00] VITALS: BP 146/95
[2017-06-12] MEDS: VANCOMYCIN 1.5 GM in IV DEXTROSE 5% 500 ML IV SCH ×3 (05:09→21:32)
[2017-06-12] MEDS: PIPERACILLIN/TAZO IV Push 4.5 GM VIAL. IVP SCH ×3 (05:09→16:46)
[2017-06-12 07:00] VITALS: BP 164/92
[2017-06-12] MEDS: INSULIN ASPART 300 UNITS/3 ML INSULN.PEN SQ SCH ×6 (07:30→17:32)
[2017-06-12] MEDS: ALBUTEROL SULFATE 2.5 MG/3 ML NEBU. NEB SCH ×3 (07:38→16:10)
[2017-06-12] MEDS: BUDESONIDE 0.5 MG/2 ML NEBU. NEB SCH (07:38)
[2017-06-12] MEDS: ASPIRIN 325 MG TABLET PO SCH (08:26)
[2017-06-12] MEDS: FLUCONAZOLE 100 MG TABLET. PO SCH (08:26)
[2017-06-12] MEDS: LACTOBACILLUS RHAMNOSUS GG 1 CAPSULE. PO SCH ×2 (08:26→20:35)
[2017-06-12] MEDS: LISINOPRIL 10 MG TABLET PO SCH (08:27)
[2017-06-12] MEDS: HYDROcodone/APAP 7.5/325MG 1 TAB TABLET PO PRN ×2 (08:28→19:48)
[2017-06-12] MEDS: METOPROLOL TART IMMED RELEASE 25 MG TABLET. PO SCH ×2 (08:29→20:36)
[2017-06-12] MEDS: SENNOSIDES/DOCUSATE 8.6/50MG TABLET. PO SCH (08:32)
--- NOTE | 2017-06-12 10:38 | PDOC ---
Infectious Disease Note Subjective Subjective feeling good ROS ROS GEN: Denies fevers, chills, sweats HEENT: Denies blurred vision, sore throat CV: Denies chest pain RESP: Denies shortness of air, cough GI: Denies n/v/d NEURO: Denies confusion, dizziness MSK: Denies weakness, joint pain/swelling Vital Sign Vital Signs Vital Signs Date Time Temp Pulse Resp B/P (MAP) Pulse Ox O2 Delivery O2 Flow Rate FiO2 06/12/17 09:35 98 Room Air 2.0 06/12/17 08:29 90 164/92 06/12/17 07:00 99.2 18 99.2 Physical Exam PHYSICAL EXAM GENERAL: NAD, Alert HEENT: PERRL, OC/OP NECK: Supple, no JVD, no LN LUNGS: Clear HEART: S1S2, no gallop, no murmur ABD: Soft, NT, no organomegaly, no rebound EXT: No edema, no cyanosis,, left foot dressing not opened today LICENSING ENGINEER: Alert, oriented x 3, no focal neurologic deficit SKIN: No rash IV: ok Labs Lab Laboratory Tests Test 06/11/17 10:59 06/11/17 16:31 06/11/17 20:51 06/12/17 07:11 Glucose (Fingerstick) 86 mg/dL (70-99) 166 mg/dL (70-99) 175 mg/dL (70-99) 91 mg/dL (70-99) Objective Assessment Left plantar foot wound w/ osteo 4th & 5th toes on MRI. s/p I and D with excisional debridement of skin, subcutaneous tissue, fascia, tendon, and bone, closed, Jun 10. gram stain no organisms Left third toe infection, Proteus so far (06/08) and G B strep DM Fever - better Plan Plan of Care luis ehijaime, will have to come here every day for iv Probiotics f/u labs and cults Elevation d/c ok, f/u with me in 2 wks wkly cbc, bun/cr and sed rate AMY DEAL MD Jun 12, 2017 10:38
[2017-06-12] MEDS ORDERED: FLUC200T PO (10:48)
[2017-06-12] MEDS ORDERED: INSU100I17 SQ (10:48)
[2017-06-12] MEDS ORDERED: LISI10TA2 PO (10:48)
[2017-06-12] MEDS ORDERED: INSU100V13 SQ (10:48)
[2017-06-12] MEDS ORDERED: ATOR10TA60 PO (10:48)
[2017-06-12] MEDS ORDERED: METO25TA4 PO (10:48)
[2017-06-12] MEDS ORDERED: ASPI325T11 PO (10:48)
--- NOTE | 2017-06-12 10:54 | PDOC3 ---
Discharge Summary Visit Information Date of Admission: Jun 07, 2017 Date of Discharge: Jun 12, 2017 Admitting Diagnosis Comment: 1. L ant foot puncture wound: cellulitis with osteomyelitis of the fifth metatarsal and proximal fifth phalanx, also suspicion for osteo of the distal fourth metatarsal and proximal fourth phalanx on MRI. cont broad spectrum Abx. s/p sx 2. Sepsis: fever, tachycardia, leukocytosis improving 3. DM2: fair control here, poor at home with HgbA1c 8.9. monitor with ISS on current regimen; may need adjustment when infection better controlled 4. Anemia: iron studies c/w inflammation, not iron deficiency. low dose daily PO iron repletion 5. Hypoalbuminemia: 2/2 inflammation 6. morbid obesity BMI 42: dietary teaching 7. Prophylaxis: on hold Final Diagnosis Problems Medical Problems: (1) Foot ulcer, left Status: Acute Brief Hospital Course Allergies Allergies Coded Allergies Type Severity Reaction Last Updated Verified shellfish derived Allergy Severe Anaphylaxis 06/07/17 Yes metformin Allergy Intermediate 06/07/17 Yes Vital Signs Vital Signs Date Time Temp Pulse Resp B/P (MAP) Pulse Ox O2 Delivery O2 Flow Rate FiO2 06/12/17 09:35 98 Room Air 2.0 06/12/17 08:29 90 164/92 06/12/17 07:00 99.2 18 99.2 Lab Results Laboratory Tests Test 06/10/17 11:41 06/10/17 12:50 06/10/17 13:05 06/10/17 16:55 Glucose (Fingerstick) 204 mg/dL (70-99) 101 mg/dL (70-99) Influenza Type A Antigen Negative (NEGATIVE) Influenza Type B Antigen Negative (NEGATIVE) Vancomycin Level Trough 16.6 mcg/mL (10.0-20.0) Vancomycin Last Dose Date 06/10/17 Vancomycin Last Dose Time 0600 Test 06/10/17 20:36 06/11/17 03:45 06/11/17 07:27 06/11/17 10:59 Glucose (Fingerstick) 92 mg/dL (70-99) 158 mg/dL (70-99) 86 mg/dL (70-99) Hemoglobin 11.6 g/dL (13.0-17.5) Hematocrit 35.8 % (39.0-53.0) Mean Corpuscular Hemoglobin Concent 32 g/dL (31-37) Test 06/11/17 16:31 06/11/17 20:51 06/12/17 07:11 Glucose (Fingerstick) 166 mg/dL (70-99) 175 mg/dL (70-99) 91 mg/dL (70-99) Laboratory Tests Test 06/11/17 10:59 06/11/17 16:31 06/11/17 20:51 06/12/17 07:11 Glucose (Fingerstick) 86 mg/dL (70-99) 166 mg/dL (70-99) 175 mg/dL (70-99) 91 mg/dL (70-99) Brief Hospital Course Mr. York is a 36 old obese AA male, SP, had a punctured wound on foot, new DM, needing hefty doses levemir and novolog, unknown [id number], SP, poor compliance , OSteo present so needs IV abx x 4-6 weeks, willing to come here as OP qDaily, ALso HTN, needs to start some new PO anti hypertensives, ALL scripts given, alot , pain meds too. Time 34 mins Also needed foot sx for some debridement Ff up OP infusion clinic Weekly CBC ESR and BMP Discharge Information Condition at Discharge: Improved, Stable Disposition/Orders: D/C to Home Scheduled Sulfamethoxazole/Trimethoprim (Bactrim Ds Tablet), 1 TAB PO BID KARIME LOPEZ MD Jun 12, 2017 10:54
[2017-06-12 11:00] VITALS: BP 165/99
[2017-06-12 15:00] VITALS: BP 161/108
[2017-06-12 19:00] VITALS: BP 161/87
[2017-06-12] MEDS: ATORVASTATIN CALCIUM 10 MG TABLET. PO SCH (20:35)
[2017-06-12] MEDS: INSULIN DETEMIR 300 UNITS/3 ML INSULN.PEN. SQ SCH (21:00)
[2017-06-12 23:00] VITALS: BP 155/86
[2017-06-13] MEDS: PIPERACILLIN/TAZO IV Push 4.5 GM VIAL. IVP SCH ×2 (00:12→05:59)
[2017-06-13 03:00] VITALS: BP 148/86
[2017-06-13] MEDS: VANCOMYCIN 1.5 GM in IV DEXTROSE 5% 500 ML IV SCH (06:01)
[2017-06-13] MEDS: INSULIN ASPART 300 UNITS/3 ML INSULN.PEN SQ SCH ×2 (07:30→08:00)
[2017-06-13 07:40] VITALS: BP 177/101
[2017-06-13] MEDS: ASPIRIN 325 MG TABLET PO SCH (08:00)
[2017-06-13] MEDS: HYDROcodone/APAP 7.5/325MG 1 TAB TABLET PO PRN (08:16)
[2017-06-13] MEDS: LISINOPRIL 10 MG TABLET PO SCH (08:16)
[2017-06-13] MEDS: LACTOBACILLUS RHAMNOSUS GG 1 CAPSULE. PO SCH (08:16)
[2017-06-13] MEDS: FLUCONAZOLE 100 MG TABLET. PO SCH (08:17)
[2017-06-13] MEDS: SENNOSIDES/DOCUSATE 8.6/50MG TABLET. PO SCH (08:17)
[2017-06-13] MEDS: METOPROLOL TART IMMED RELEASE 25 MG TABLET. PO SCH (08:17)
[2017-06-13] MEDS: hydrALAZINE 20 MG/ML VIAL. IVP PRN (08:18)
[2017-06-13] MEDS ORDERED: ALBUTEROL SULFATE 2.5 MG/3 ML NEBU. NEB SCH (10:00)
[2017-06-13] MEDS ORDERED: BUDESONIDE 0.5 MG/2 ML NEBU. NEB SCH (10:00)
[2017-06-13] MEDS ORDERED: LISI-334 PO (10:08)
[2017-06-13] MEDS ORDERED: METO50TA6 PO (10:08)
--- NOTE | 2017-06-13 10:09 | PDOC ---
Provider Note Provider Note Pt did not dc yesterday bec paperwork for OP IV abx has not been set up. Now ready BP high, i inc her lisinopril to 20 qD from 10 and inc Metoprolol from 25 to 50 BID RX in chart KARIME LOPEZ MD Jun 13, 2017 10:09
[2017-06-13] MEDS ORDERED: METOPROLOL TART IMMED RELEASE 25 MG TABLET. PO ONE (10:30)
[2017-06-13] MEDS ORDERED: LISINOPRIL 10 MG TABLET PO ONE (10:30)
[2017-06-13 10:40] VITALS: BP 157/87
[2017-06-13] MEDS ORDERED: METOPROLOL TART IMMED RELEASE 50 MG TABLET. PO SCH (21:00)
[2017-06-14] MEDS ORDERED: LISINOPRIL 20 MG TABLET PO SCH (09:00)
== END 2017-06-13 10:54 | disposition home or self-care (01) | DRG 854 ==
LOC: ER 14:22 → 5 NORTH 18:07
PROVIDERS: ADMIT Internal Medicine; ATTEND Internal Medicine
PROC: 0QBP0ZZ Excision of Left Metatarsal, Open Approach (ICD-10-PCS; 2017-06-10)
PROC: 0J9R0ZZ Drainage of Left Foot Subcutaneous Tissue and Fascia, Open Approach (ICD-10-PCS; principal; 2017-06-10 08:00)
DX: A41.9 Sepsis, unspecified organism (principal); E44.1 Mild protein-calorie malnutrition; E11.621 Type 2 diabetes mellitus with foot ulcer; E11.42 Type 2 diabetes mellitus with diabetic polyneuropathy; L03.116 Cellulitis of left lower limb; Z68.41 Body mass index [BMI] 40.0-44.9, adult; L02.612 Cutaneous abscess of left foot; M86.8X7 Other osteomyelitis, ankle and foot; E11.69 Type 2 diabetes mellitus with other specified complication; E66.01 Morbid (severe) obesity due to excess calories; E88.09 Other disorders of plasma-protein metabolism, not elsewhere classified; D64.9 Anemia, unspecified; S91.332A Puncture wound without foreign body, left foot, initial encounter; R59.0 Localized enlarged lymph nodes; B96.4 Proteus (mirabilis) (morganii) as the cause of diseases classified elsewhere; J45.909 Unspecified asthma, uncomplicated; B95.1 Streptococcus, group B, as the cause of diseases classified elsewhere; L97.529 Non-pressure chronic ulcer of other part of left foot with unspecified severity; E61.1 Iron deficiency; X58.XXXA Exposure to other specified factors, initial encounter; I10 Essential (primary) hypertension; Z91.013 Allergy to seafood; Y93.89 Activity, other specified; Y92.89 Other specified places as the place of occurrence of the external cause; Y99.8 Other external cause status; Z88.8 Allergy status to other drugs, medicaments and biological substances; Z83.3 Family history of diabetes mellitus
CPT/HCPCS: 36415; 36569; 71010; 71275; 73630; 73718; 80048; 80053; 80202; 82962; 83036; 83540; 83550; 83605; 84484; 85014; 85018; 85025; 87040; 87071; 87075; 87205; 87804; 93005; 93923; 93926; 93971; 94250; 94640; 94760; 96374; J0360; J1756; J1815; J2270; J2405; J2543; J2704; J3010; J3370; J7030; J7120; J7613; J7626; 99285-25; A4461; J2001

== ENCOUNTER 2017-09-16 13:49 | Inpatient (IN) | payer SELFPAY ==
[2017-09-16 14:06] LABS: POC GLUCOSE 105 mg/dL (70-99)
[2017-09-16 15:06] LABS: POC GLUCOSE 39 mg/dL (70-99)
[2017-09-16 15:44] LABS: ADD MAN DIFF? NO
[2017-09-16 15:50] LABS: BASO % 0 % (0-3); EOS # 0.1 x10^3/uL (0.0-0.7); EOS % 1 % (0-3); HEMATOCRIT 36.1 % (39.0-53.0); LYMPH % 10 % (24-48); MEAN CORPUSCULAR HEMOGLOBIN 26 pg (25-35); MEAN CORPUSCULAR HGB CONC 33 g/dL (31-37); MEAN CORPUSCULAR VOLUME 77 fL (79-100); MONO # 0.7 x10^3/uL (0.0-1.1); MONO % 7 % (0-9); NEUT % 83 % (31-73); PLATELET COUNT 312 x10^3/uL (140-400); RED BLOOD COUNT 4.68 x10^6/uL (4.30-5.70); RED CELL DISTRIBUTION WIDTH 13.8 % (11.5-14.5); WHITE BLOOD COUNT 10.9 x10^3/uL (4.0-11.0)
[2017-09-16 15:59] LABS: INR 1.1 (0.8-1.1); PARTIAL THROMBOPLASTIN TIME 34 SEC (24-38); PROTHROMBIN TIME PATIENT 13.9 SEC (11.7-14.0)
[2017-09-16 16:07] LABS: LACTIC ACID 1.2 mmol/L (0.4-2.0)
[2017-09-16 16:13] LABS: ANION GAP 12 (6-14); BLOOD UREA NITROGEN 14 mg/dL (8-26); BUN/CREATININE RATIO 14 (6-20); CALCIUM 9.1 mg/dL (8.5-10.1); CARBON DIOXIDE 24 mmol/L (21-32); CHLORIDE 102 mmol/L (98-107); GFR 102.3; GLUCOSE 69 mg/dL (70-99); POTASSIUM 3.4 mmol/L (3.5-5.1); SODIUM 138 mmol/L (136-145)
[2017-09-16 16:17] LABS: ALBUMIN 2.9 g/dL (3.4-5.0); ALBUMIN/GLOBULIN RATIO 0.6 (1.0-1.7); ALK PHOS 94 U/L (46-116); ALT (SGPT) 41 U/L (16-63); AST (SGOT) 23 U/L (15-37); LIPASE 102 U/L (73-393); MAGNESIUM 1.8 mg/dL (1.8-2.4); TOTAL BILIRUBIN 0.2 mg/dL (0.2-1.0); TOTAL PROTEIN 8.1 g/dL (6.4-8.2)
[2017-09-16 16:20] LABS: NT-PRO BNP 171 pg/mL (0-124)
[2017-09-16 16:22] LABS: POC GLUCOSE 82 mg/dL (70-99)
[2017-09-16 16:22] LABS: POC GLUCOSE 40 mg/dL (70-99)
[2017-09-16 16:25] LABS: TROPONINI < 0.017 ng/mL (0.000-0.055)
[2017-09-16] MEDS ORDERED: ACETAMINOPHEN 325 MG TABLET. PO (17:00)
[2017-09-16] MEDS: INSULIN ASPART 300 UNITS/3 ML INSULN.PEN SQ (17:00)
[2017-09-16] MEDS ORDERED: ONDANSETRON PF 4 MG/2 ML VIAL. IV (17:00)
[2017-09-16] MEDS ORDERED: MORPHINE SULFATE 4 MG/ML DISP.SYRIN. IV (17:00)
[2017-09-16] MEDS ORDERED: DEXTROSE 50% 25 GM / 50ML DISP.SYRIN. IV (17:00)
[2017-09-16] MEDS: IV NORMAL SALINE 1000ML BAG 1,000 ML IV ×4 (17:02→20:43)
[2017-09-16] MEDS: VANCOMYCIN 2 GM in IV DEXTROSE 5% 500 ML IV (17:04)
[2017-09-16] MEDS: VANCOMYCIN PER PHARMACY MC (17:24)
[2017-09-16 17:56] LABS: INFLUENZA A PATIENT NEGATIVE (NEGATIVE); INFLUENZA B PATIENT NEGATIVE (NEGATIVE); OBC FLU VALID
[2017-09-16] MEDS ORDERED: PNEUMOCOCCAL VAX SCREEN BY RX. MC (18:00)
[2017-09-16 18:08] LABS: POC GLUCOSE 69 mg/dL (70-99)
[2017-09-16] MEDS ORDERED: INSULIN ASPART 300 UNITS/3 ML INSULN.PEN SQ (20:00)
[2017-09-16 20:02] LABS: LACTIC ACID 0.9 mmol/L (0.4-2.0)
[2017-09-16] MEDS: cloNIDine HCL 0.2 MG TABLET PO (20:42)
[2017-09-16] MEDS: ENOXAPARIN 40 MG/0.4 ML SYRINGE. SQ (21:00)
[2017-09-16] MEDS: METOPROLOL TART IMMED RELEASE 50 MG TABLET. PO (21:40)
[2017-09-16 22:26] LABS: POC GLUCOSE 115 mg/dL (70-99)
[2017-09-17] MEDS: VANCOMYCIN 1.5 GM in IV DEXTROSE 5 %-0.2 % NACL 500 ML IV ×2 (01:30→09:08)
[2017-09-17 02:06] LABS: POC GLUCOSE 136 mg/dL (70-99)
[2017-09-17 05:27] LABS: ADD MAN DIFF? NO
[2017-09-17 05:30] LABS: BASO % 1 % (0-3); EOS # 0.2 x10^3/uL (0.0-0.7); EOS % 2 % (0-3); HEMATOCRIT 33.7 % (39.0-53.0); LYMPH # 1.8 x10^3/uL (1.0-4.8); LYMPH % 20 % (24-48); MEAN CORPUSCULAR HEMOGLOBIN 25 pg (25-35); MEAN CORPUSCULAR HGB CONC 33 g/dL (31-37); MEAN CORPUSCULAR VOLUME 78 fL (79-100); MONO # 0.9 x10^3/uL (0.0-1.1); MONO % 10 % (0-9); NEUT # 6.3 x10^3uL (1.8-7.7); NEUT % 67 % (31-73); PLATELET COUNT 300 x10^3/uL (140-400); RED BLOOD COUNT 4.33 x10^6/uL (4.30-5.70); RED CELL DISTRIBUTION WIDTH 13.8 % (11.5-14.5); WHITE BLOOD COUNT 9.4 x10^3/uL (4.0-11.0)
[2017-09-17 06:04] LABS: ANION GAP 8 (6-14); CALCIUM 8.5 mg/dL (8.5-10.1); CARBON DIOXIDE 26 mmol/L (21-32); CHLORIDE 102 mmol/L (98-107); GFR 102.3; GLUCOSE 164 mg/dL (70-99); POTASSIUM 3.7 mmol/L (3.5-5.1); SODIUM 136 mmol/L (136-145)
[2017-09-17 06:05] LABS: BLOOD UREA NITROGEN 8 mg/dL (8-26)
[2017-09-17 06:06] LABS: POC GLUCOSE 125 mg/dL (70-99)
[2017-09-17] MEDS: LISINOPRIL 20 MG TABLET PO (08:45)
[2017-09-17] MEDS: IV NORMAL SALINE 1000ML BAG 1,000 ML IV ×2 (08:45→08:49)
[2017-09-17] MEDS: METOPROLOL TART IMMED RELEASE 50 MG TABLET. PO ×2 (08:46→21:01)
[2017-09-17] MEDS: INSULIN ASPART 300 UNITS/3 ML INSULN.PEN SQ ×3 (08:49→16:30)
[2017-09-17] MEDS: INSULIN DETEMIR 300 UNITS/3 ML INSULN.PEN. SQ ×3 (08:50→21:00)
[2017-09-17] MEDS ORDERED: MORPHINE SULFATE 2 MG/ML DISP.SYRIN. IV (09:15)
[2017-09-17] MEDS ORDERED: ACETAMINOPHEN 325 MG TABLET. PO (09:15)
[2017-09-17] MEDS ORDERED: hydrALAZINE 20 MG/ML VIAL. IVP (09:15)
[2017-09-17 11:23] LABS: POC GLUCOSE 142 mg/dL (70-99)
[2017-09-17] MEDS: PIPERACILLIN/TAZOBACTAM 3.375 GM in IV NORMAL SALINE 50ML 50 ML IV ×4 (11:52→23:50)
[2017-09-17] MEDS: FLUCONAZOLE 100 MG TABLET. PO (11:53)
[2017-09-17] MEDS: LACTOBACILLUS RHAMNOSUS GG 1 CAPSULE. PO ×2 (11:53→21:01)
[2017-09-17] MEDS: oxyCODONE/APAP 5/325 1 TAB TABLET PO (15:25)
[2017-09-17 16:51] LABS: POC GLUCOSE 91 mg/dL (70-99)
[2017-09-17 17:08] LABS: VANC TR 12.7 mcg/mL (10.0-20.0)
[2017-09-17 17:19] LABS: MRSA BY PCR Negative (Negative)
[2017-09-17] MEDS: VANCOMYCIN PER PHARMACY MC (17:47)
[2017-09-17 18:06] LABS: SEDIMENTATION RATE 60 (0-15)
[2017-09-17] MEDS: VANCOMYCIN 2 GM in IV DEXTROSE 5 %-0.2 % NACL 500 ML IV (19:52)
[2017-09-17 20:46] LABS: POC GLUCOSE 116 mg/dL (70-99)
[2017-09-17] MEDS: ENOXAPARIN 40 MG/0.4 ML SYRINGE. SQ (20:54)
[2017-09-18] MEDS: VANCOMYCIN 2 GM in IV DEXTROSE 5 %-0.2 % NACL 500 ML IV ×2 (03:55→08:18)
[2017-09-18 04:36] LABS: ADD MAN DIFF? NO
[2017-09-18 04:42] LABS: BASO # 0.1 x10^3/uL (0.0-0.2); BASO % 1 % (0-3); EOS # 0.3 x10^3/uL (0.0-0.7); EOS % 3 % (0-3); HEMATOCRIT 35.8 % (39.0-53.0); HEMOGLOBIN 11.8 g/dL (13.0-17.5); LYMPH # 1.4 x10^3/uL (1.0-4.8); LYMPH % 17 % (24-48); MEAN CORPUSCULAR HEMOGLOBIN 26 pg (25-35); MEAN CORPUSCULAR HGB CONC 33 g/dL (31-37); MEAN CORPUSCULAR VOLUME 77 fL (79-100); MONO # 0.6 x10^3/uL (0.0-1.1); MONO % 8 % (0-9); NEUT # 5.9 x10^3uL (1.8-7.7); NEUT % 71 % (31-73); PLATELET COUNT 314 x10^3/uL (140-400); RED BLOOD COUNT 4.62 x10^6/uL (4.30-5.70); WHITE BLOOD COUNT 8.2 x10^3/uL (4.0-11.0)
[2017-09-18 05:21] LABS: ANION GAP 4 (6-14); BLOOD UREA NITROGEN 8 mg/dL (8-26); CALCIUM 8.8 mg/dL (8.5-10.1); CARBON DIOXIDE 33 mmol/L (21-32); CHLORIDE 103 mmol/L (98-107); CREATININE 1.1 mg/dL (0.7-1.3); GFR 91.6; GLUCOSE 127 mg/dL (70-99); POTASSIUM 3.7 mmol/L (3.5-5.1); SODIUM 140 mmol/L (136-145)
[2017-09-18] MEDS: ONDANSETRON PF 4 MG/2 ML VIAL. IV ×2 (06:18→12:21)
[2017-09-18] MEDS: PIPERACILLIN/TAZOBACTAM 3.375 GM in IV NORMAL SALINE 50ML 50 ML IV ×3 (06:18→18:00)
[2017-09-18] MEDS ORDERED: MORPHINE SULFATE 2 MG/ML DISP.SYRIN. IV (07:00)
[2017-09-18] MEDS ORDERED: LIDOCAINE 1% PF 2 ML VIAL. ID (07:00)
[2017-09-18] MEDS: INSULIN ASPART 300 UNITS/3 ML INSULN.PEN SQ ×3 (07:15→16:30)
[2017-09-18] MEDS: FLUCONAZOLE 100 MG TABLET. PO (07:15)
[2017-09-18] MEDS: LACTOBACILLUS RHAMNOSUS GG 1 CAPSULE. PO ×2 (07:15→20:25)
[2017-09-18] MEDS: METOPROLOL TART IMMED RELEASE 50 MG TABLET. PO ×3 (07:16→20:25)
[2017-09-18] MEDS: LISINOPRIL 20 MG TABLET PO (07:16)
[2017-09-18] MEDS: INSULIN DETEMIR 300 UNITS/3 ML INSULN.PEN. SQ ×2 (07:16→20:43)
[2017-09-18] MEDS: ENOXAPARIN 40 MG/0.4 ML SYRINGE. SQ ×2 (07:17→21:05)
[2017-09-18] MEDS: MORPHINE SULFATE 4 MG/ML DISP.SYRIN. IV ×6 (08:18→20:26)
[2017-09-18 08:21] LABS: POC GLUCOSE 115 mg/dL (70-99)
[2017-09-18] MEDS: ALBUTEROL SULFATE 2.5 MG/3 ML NEBU. NEB (08:57)
[2017-09-18] MEDS ORDERED: ALBUTEROL SULFATE 2.5 MG/3 ML NEBU. NEB (09:15)
[2017-09-18 11:24] LABS: POC GLUCOSE 167 mg/dL (70-99)
[2017-09-18 13:20] LABS: POC GLUCOSE 123 mg/dL (70-99)
[2017-09-18] MEDS: IV RINGERS,LACTATED 1000ML 1,000 ML IV (13:26)
[2017-09-18] MEDS: MULTIVITAMIN with MINERAL TABLET. PO (14:00)
[2017-09-18] MEDS: ASCORBIC ACID 500 MG TABLET PO (14:00)
[2017-09-18] MEDS: VANCOMYCIN PER PHARMACY MC (14:39)
[2017-09-18] MEDS ORDERED: MIDAZOLAM HCL/PF 2 MG/2 ML VIAL. (15:00)
[2017-09-18] MEDS ORDERED: SUCCINYLCHOLINE 200 MG/10 ML VIAL. (15:00)
[2017-09-18] MEDS ORDERED: ONDANSETRON PF 4 MG/2 ML VIAL. (15:00)
[2017-09-18] MEDS ORDERED: LIDOCAINE 2% PF Vial for OR 5 ML VIAL. (15:00)
[2017-09-18] MEDS ORDERED: FAMOTIDINE 20 MG/2 ML VIAL (15:00)
[2017-09-18] MEDS ORDERED: PROPOFOL 20 ML IV (15:00)
[2017-09-18] MEDS ORDERED: DEXAMETHASONE SOD PHOS 20 MG/5 ML VIAL. ×2 (15:00)
[2017-09-18] MEDS ORDERED: fentaNYL PF VIAL 100 MCG/2 ML VIAL (15:00)
[2017-09-18] MEDS: BUPIVACAINE-EPI 0.25%-1:200000 50 ML VIAL. (15:33)
[2017-09-18] MEDS: GELATIN SPONGE SIZE 100. (16:01)
[2017-09-18] MEDS ORDERED: PHENYLEPHRINE in 0.9% NACL PF 1 MG/10 ML SYRINGE. IV (16:12)
[2017-09-18] MEDS ORDERED: MORPHINE SULFATE 4 MG/ML DISP.SYRIN. (16:22)
[2017-09-18] MEDS ORDERED: DESFLURANE 61 TO 120 MINUTES IH (16:36)
[2017-09-18] MEDS ORDERED: DEXTROSE 50% 25 GM / 50ML DISP.SYRIN. IV (16:45)
[2017-09-18] MEDS ORDERED: POLYETHYLENE GLYCOL 3350 17 GM PACKET. PO (16:45)
[2017-09-18] MEDS ORDERED: MORPHINE SULFATE 4 MG/ML DISP.SYRIN. IV (16:45)
[2017-09-18 16:46] LABS: POC GLUCOSE 120 mg/dL (70-99)
[2017-09-18] MEDS ORDERED: fentaNYL PF VIAL 100 MCG/2 ML VIAL IV (17:00)
[2017-09-18] MEDS: SENNOSIDES/DOCUSATE 8.6/50MG TABLET. PO (17:00)
[2017-09-18] MEDS: VANCOMYCIN 1.75 GM in IV DEXTROSE 5 %-0.2 % NACL 500 ML IV (17:00)
[2017-09-18] MEDS: fentaNYL PF VIAL 100 MCG/2 ML VIAL IM (17:00)
[2017-09-18] MEDS: fentaNYL PF VIAL 100 MCG/2 ML VIAL IV ×2 (17:07→17:26)
[2017-09-18] MEDS: PROCHLORPERAZINE 10 MG/2 ML VIAL. IV (17:07)
[2017-09-18 20:45] LABS: POC GLUCOSE 143 mg/dL (70-99)
[2017-09-19] MEDS: PIPERACILLIN/TAZOBACTAM 3.375 GM in IV NORMAL SALINE 50ML 50 ML IV ×5 (00:13→23:23)
[2017-09-19] MEDS: oxyCODONE/APAP 5/325 1 TAB TABLET PO ×5 (00:21→21:38)
[2017-09-19] MEDS: VANCOMYCIN 1.75 GM in IV DEXTROSE 5 %-0.2 % NACL 500 ML IV ×2 (01:34→08:54)
[2017-09-19] MEDS: traMADol 50 MG TABLET PO (02:50)
[2017-09-19] MEDS: MORPHINE SULFATE 4 MG/ML DISP.SYRIN. IV ×2 (05:25→18:09)
[2017-09-19] MEDS ORDERED: MAGNESIUM HYDROXIDE 2,400 MG/30 ML ORAL.SUSP. PO (06:00)
[2017-09-19 06:08] LABS: ADD MAN DIFF? NO
[2017-09-19 06:13] LABS: BASO % 0 % (0-3); EOS # 0.1 x10^3/uL (0.0-0.7); EOS % 1 % (0-3); HEMATOCRIT 34.9 % (39.0-53.0); HEMOGLOBIN 11.4 g/dL (13.0-17.5); LYMPH # 1.4 x10^3/uL (1.0-4.8); LYMPH % 11 % (24-48); MEAN CORPUSCULAR HEMOGLOBIN 25 pg (25-35); MEAN CORPUSCULAR HGB CONC 33 g/dL (31-37); MEAN CORPUSCULAR VOLUME 77 fL (79-100); MONO # 0.8 x10^3/uL (0.0-1.1); MONO % 6 % (0-9); NEUT # 10.9 x10^3uL (1.8-7.7); NEUT % 83 % (31-73); PLATELET COUNT 335 x10^3/uL (140-400); RED BLOOD COUNT 4.52 x10^6/uL (4.30-5.70); RED CELL DISTRIBUTION WIDTH 13.6 % (11.5-14.5); WHITE BLOOD COUNT 13.2 x10^3/uL (4.0-11.0)
[2017-09-19 06:43] LABS: ANION GAP 6 (6-14); BLOOD UREA NITROGEN 11 mg/dL (8-26); CARBON DIOXIDE 29 mmol/L (21-32); CHLORIDE 98 mmol/L (98-107); CREATININE 1.2 mg/dL (0.7-1.3); GFR 82.9; GLUCOSE 250 mg/dL (70-99); POTASSIUM 4.7 mmol/L (3.5-5.1); SODIUM 133 mmol/L (136-145)
[2017-09-19 07:49] LABS: POC GLUCOSE 210 mg/dL (70-99)
[2017-09-19] MEDS: ASCORBIC ACID 500 MG TABLET PO (08:47)
[2017-09-19] MEDS: LISINOPRIL 20 MG TABLET PO (08:47)
[2017-09-19] MEDS: METOPROLOL TART IMMED RELEASE 50 MG TABLET. PO ×2 (08:47→21:39)
[2017-09-19] MEDS: LACTOBACILLUS RHAMNOSUS GG 1 CAPSULE. PO ×2 (08:48→21:38)
[2017-09-19] MEDS: FLUCONAZOLE 100 MG TABLET. PO (08:48)
[2017-09-19] MEDS: SENNOSIDES/DOCUSATE 8.6/50MG TABLET. PO (08:48)
[2017-09-19] MEDS: MULTIVITAMIN with MINERAL TABLET. PO (08:48)
[2017-09-19] MEDS: INSULIN ASPART 300 UNITS/3 ML INSULN.PEN SQ ×3 (08:57→16:30)
[2017-09-19] MEDS: INSULIN DETEMIR 300 UNITS/3 ML INSULN.PEN. SQ ×2 (08:58→21:44)
[2017-09-19] MEDS: ENOXAPARIN 40 MG/0.4 ML SYRINGE. SQ ×2 (09:00→21:00)
[2017-09-19 11:15] LABS: POC GLUCOSE 249 mg/dL (70-99)
[2017-09-19] MEDS: LISINOPRIL 10 MG TABLET PO (12:30)
[2017-09-19] MEDS ORDERED: BISACODYL 10 MG SUPP.RECT. PR (16:00)
[2017-09-19 16:35] LABS: HEMATOCRIT 33.1 % (39.0-53.0); HEMOGLOBIN 11.4 g/dL (13.0-17.5); MEAN CORPUSCULAR HGB CONC 34 g/dL (31-37)
[2017-09-19 16:39] LABS: POC GLUCOSE 108 mg/dL (70-99)
[2017-09-19 21:04] LABS: POC GLUCOSE 167 mg/dL (70-99)
[2017-09-20] MEDS: oxyCODONE/APAP 5/325 1 TAB TABLET PO ×2 (05:55→12:53)
[2017-09-20] MEDS: PIPERACILLIN/TAZOBACTAM 3.375 GM in IV NORMAL SALINE 50ML 50 ML IV ×4 (05:56→23:14)
[2017-09-20 06:01] LABS: ADD MAN DIFF? NO
[2017-09-20 06:15] LABS: BASO # 0.1 x10^3/uL (0.0-0.2); BASO % 1 % (0-3); EOS # 0.4 x10^3/uL (0.0-0.7); EOS % 4 % (0-3); HEMATOCRIT 33.8 % (39.0-53.0); HEMOGLOBIN 11.1 g/dL (13.0-17.5); LYMPH # 2.1 x10^3/uL (1.0-4.8); LYMPH % 22 % (24-48); MEAN CORPUSCULAR HEMOGLOBIN 25 pg (25-35); MEAN CORPUSCULAR HGB CONC 33 g/dL (31-37); MEAN CORPUSCULAR VOLUME 78 fL (79-100); MONO # 0.7 x10^3/uL (0.0-1.1); MONO % 8 % (0-9); NEUT # 6.3 x10^3uL (1.8-7.7); NEUT % 66 % (31-73); PLATELET COUNT 330 x10^3/uL (140-400); RED BLOOD COUNT 4.36 x10^6/uL (4.30-5.70); RED CELL DISTRIBUTION WIDTH 13.7 % (11.5-14.5); WHITE BLOOD COUNT 9.6 x10^3/uL (4.0-11.0)
[2017-09-20 06:33] LABS: ALBUMIN 2.5 g/dL (3.4-5.0); ALBUMIN/GLOBULIN RATIO 0.5 (1.0-1.7); ALK PHOS 84 U/L (46-116); ALT (SGPT) 35 U/L (16-63); ANION GAP 3 (6-14); AST (SGOT) 19 U/L (15-37); BLOOD UREA NITROGEN 11 mg/dL (8-26); BUN/CREATININE RATIO 10 (6-20); CALCIUM 8.7 mg/dL (8.5-10.1); CARBON DIOXIDE 33 mmol/L (21-32); CHLORIDE 101 mmol/L (98-107); CREATININE 1.1 mg/dL (0.7-1.3); GFR 91.6; GLUCOSE 127 mg/dL (70-99); POTASSIUM 4.4 mmol/L (3.5-5.1); SODIUM 137 mmol/L (136-145); TOTAL BILIRUBIN 0.2 mg/dL (0.2-1.0); TOTAL PROTEIN 7.7 g/dL (6.4-8.2)
[2017-09-20] MEDS: INSULIN ASPART 300 UNITS/3 ML INSULN.PEN SQ ×3 (07:30→16:30)
[2017-09-20 08:19] LABS: POC GLUCOSE 110 mg/dL (70-99)
[2017-09-20] MEDS: FLUCONAZOLE 100 MG TABLET. PO (08:32)
[2017-09-20] MEDS: MULTIVITAMIN with MINERAL TABLET. PO (08:34)
[2017-09-20] MEDS: ASCORBIC ACID 500 MG TABLET PO (08:34)
[2017-09-20] MEDS: LISINOPRIL 20 MG TABLET PO ×2 (08:36→16:50)
[2017-09-20] MEDS: METOPROLOL TART IMMED RELEASE 50 MG TABLET. PO ×2 (08:38→23:04)
[2017-09-20] MEDS: SENNOSIDES/DOCUSATE 8.6/50MG TABLET. PO (08:39)
[2017-09-20] MEDS: ENOXAPARIN 40 MG/0.4 ML SYRINGE. SQ ×2 (08:40→23:05)
[2017-09-20] MEDS: traMADol 50 MG TABLET PO (08:42)
[2017-09-20] MEDS: ONDANSETRON PF 4 MG/2 ML VIAL. IV ×2 (08:44→12:49)
[2017-09-20] MEDS: INSULIN DETEMIR 300 UNITS/3 ML INSULN.PEN. SQ ×2 (09:00→23:13)
[2017-09-20] MEDS ORDERED: LISINOPRIL 5 MG TABLET. PO (09:00)
[2017-09-20 11:49] LABS: POC GLUCOSE 136 mg/dL (70-99)
[2017-09-20] MEDS: LACTOBACILLUS RHAMNOSUS GG 1 CAPSULE. PO ×2 (12:48→23:03)
[2017-09-20] MEDS: POLYETHYLENE GLYCOL 3350 17 GM PACKET. PO (12:48)
[2017-09-20] MEDS: CYCLOBENZAPRINE 10 MG TABLET. PO ×2 (14:00→16:51)
[2017-09-20] MEDS: hydroCHLOROthiazide 12.5 MG CAPSULE PO (16:48)
[2017-09-20 17:13] LABS: POC GLUCOSE 121 mg/dL (70-99)
[2017-09-20 21:17] LABS: POC GLUCOSE 137 mg/dL (70-99)
[2017-09-21] MEDS: PIPERACILLIN/TAZOBACTAM 3.375 GM in IV NORMAL SALINE 50ML 50 ML IV ×2 (06:09→12:00)
[2017-09-21] MEDS: CYCLOBENZAPRINE 10 MG TABLET. PO ×2 (06:11→15:28)
[2017-09-21] MEDS: INSULIN ASPART 300 UNITS/3 ML INSULN.PEN SQ ×3 (07:30→16:30)
[2017-09-21 08:08] LABS: POC GLUCOSE 131 mg/dL (70-99)
[2017-09-21] MEDS: SENNOSIDES/DOCUSATE 8.6/50MG TABLET. PO (08:23)
[2017-09-21] MEDS: POLYETHYLENE GLYCOL 3350 17 GM PACKET. PO (08:23)
[2017-09-21] MEDS: FLUCONAZOLE 100 MG TABLET. PO (08:24)
[2017-09-21] MEDS: ENOXAPARIN 40 MG/0.4 ML SYRINGE. SQ (08:24)
[2017-09-21] MEDS: oxyCODONE/APAP 5/325 1 TAB TABLET PO ×2 (08:24→15:29)
[2017-09-21] MEDS: traMADol 50 MG TABLET PO (08:25)
[2017-09-21] MEDS: LACTOBACILLUS RHAMNOSUS GG 1 CAPSULE. PO (08:25)
[2017-09-21] MEDS: ASCORBIC ACID 500 MG TABLET PO (08:25)
[2017-09-21] MEDS: MULTIVITAMIN with MINERAL TABLET. PO (08:26)
[2017-09-21] MEDS: METOPROLOL TART IMMED RELEASE 50 MG TABLET. PO (08:26)
[2017-09-21] MEDS: hydroCHLOROthiazide 12.5 MG CAPSULE PO (08:27)
[2017-09-21] MEDS: LISINOPRIL 20 MG TABLET PO (08:27)
[2017-09-21] MEDS: INSULIN DETEMIR 300 UNITS/3 ML INSULN.PEN. SQ (08:35)
[2017-09-21 11:23] LABS: POC GLUCOSE 120 mg/dL (70-99)
[2017-09-21] MEDS: DOCUSATE SODIUM 100 MG CAPSULE. PO (15:29)
[2017-09-21] MEDS: PNEUMOC CONJ VACC 23-VALENT 0.5 ML VIAL. VAX IM (16:27)
[2017-09-21 16:47] LABS: POC GLUCOSE 148 mg/dL (70-99)
== END 2017-09-21 17:30 | disposition home or self-care (01) | DRG 617 ==
LOC: ER 13:49 → 4 NORTH 16:31
PROVIDERS: Internal Medicine
PROC: 0Y6N0ZF Detachment at Left Foot, Partial 5th Ray, Open Approach (ICD-10-PCS; principal; 2017-09-18 13:45)
DX: E11.69 Type 2 diabetes mellitus with other specified complication (principal); M86.9 Osteomyelitis, unspecified; M00.9 Pyogenic arthritis, unspecified; E66.01 Morbid (severe) obesity due to excess calories; M86.8X7 Other osteomyelitis, ankle and foot; E11.51 Type 2 diabetes mellitus with diabetic peripheral angiopathy without gangrene; Z68.41 Body mass index [BMI] 40.0-44.9, adult; E11.621 Type 2 diabetes mellitus with foot ulcer; D50.9 Iron deficiency anemia, unspecified; E11.649 Type 2 diabetes mellitus with hypoglycemia without coma; F41.9 Anxiety disorder, unspecified; B95.1 Streptococcus, group B, as the cause of diseases classified elsewhere; B96.4 Proteus (mirabilis) (morganii) as the cause of diseases classified elsewhere; I10 Essential (primary) hypertension; J45.20 Mild intermittent asthma, uncomplicated; K59.00 Constipation, unspecified; L97.509 Non-pressure chronic ulcer of other part of unspecified foot with unspecified severity; S92.353A Displaced fracture of fifth metatarsal bone, unspecified foot, initial encounter for closed fracture; Z91.19 Patient's noncompliance with other medical treatment and regimen; Z83.3 Family history of diabetes mellitus; Z79.4 Long term (current) use of insulin
CPT/HCPCS: 36415; 71046; 73630; 80048; 80053; 80202; 82962; 83605; 83690; 83735; 83880; 84484; 85014; 85018; 85025; 85610; 85651; 85730; 87040; 87071; 87075; 87186; 87205; 87641; 87804; 87804-59; 90732; 93005; 94640; 94760; 96374; 97116-GP; 97162-GP; 97165-GO; 97530-GP; 99285; 99285-25; J0330; J0690; J0780; J1100; J1650; J1815; J2250; J2270; J2370; J2405; J2543; J2704; J3010; J3370; J7030; J7120; J7613; S0028

== ENCOUNTER 2017-10-09 15:28 | Emergency (ER) | payer SELFPAY ==
[2017-10-09 16:54] LABS: POC GLUCOSE 44 mg/dL (70-99)
[2017-10-09 17:19] LABS: POC GLUCOSE 47 mg/dL (70-99)
[2017-10-09] MEDS: AMOXICILLIN/K CLAV 875/125MG TABLET. PO (17:46)
[2017-10-09 18:10] LABS: POC GLUCOSE 81 mg/dL (70-99)
== END 2017-10-09 18:36 | disposition home or self-care (01) ==
LOC: ER 15:28
DX: M79.672 Pain in left foot (principal); J45.909 Unspecified asthma, uncomplicated; E11.9 Type 2 diabetes mellitus without complications; Z91.013 Allergy to seafood; Z88.8 Allergy status to other drugs, medicaments and biological substances
CPT/HCPCS: 73630; 82962; 99285

== ENCOUNTER 2017-10-22 17:58 | Emergency (ER) | payer SELFPAY ==
[2017-10-22] MEDS ORDERED: VANCOMYCIN PER PHARMACY MC (18:39)
[2017-10-22] MEDS ORDERED: PIP/TAZO PER PHARMACY MC (18:39)
[2017-10-22 18:52] LABS: ADD MAN DIFF? NO
[2017-10-22 18:55] LABS: BASO # 0.1 x10^3/uL (0.0-0.2); BASO % 1 % (0-3); EOS # 0.2 x10^3/uL (0.0-0.7); EOS % 2 % (0-3); HEMATOCRIT 39.4 % (39.0-53.0); HEMOGLOBIN 12.7 g/dL (13.0-17.5); LYMPH # 2.2 x10^3/uL (1.0-4.8); LYMPH % 21 % (24-48); MEAN CORPUSCULAR HEMOGLOBIN 25 pg (25-35); MEAN CORPUSCULAR HGB CONC 32 g/dL (31-37); MEAN CORPUSCULAR VOLUME 78 fL (79-100); MONO # 0.5 x10^3/uL (0.0-1.1); MONO % 5 % (0-9); NEUT # 7.5 x10^3uL (1.8-7.7); NEUT % 72 % (31-73); PLATELET COUNT 320 x10^3/uL (140-400); RED BLOOD COUNT 5.03 x10^6/uL (4.30-5.70); RED CELL DISTRIBUTION WIDTH 14.4 % (11.5-14.5); WHITE BLOOD COUNT 10.5 x10^3/uL (4.0-11.0)
[2017-10-22 19:12] LABS: ANION GAP 10 (6-14); BLOOD UREA NITROGEN 19 mg/dL (8-26); BUN/CREATININE RATIO 15 (6-20); CALCIUM 9.8 mg/dL (8.5-10.1); CARBON DIOXIDE 27 mmol/L (21-32); CHLORIDE 99 mmol/L (98-107); CREATININE 1.3 mg/dL (0.7-1.3); GFR 75.2; GLUCOSE 283 mg/dL (70-99); POTASSIUM 4.1 mmol/L (3.5-5.1); SODIUM 136 mmol/L (136-145)
[2017-10-22 19:17] LABS: ALBUMIN 3.4 g/dL (3.4-5.0); ALBUMIN/GLOBULIN RATIO 0.7 (1.0-1.7); ALK PHOS 120 U/L (46-116); ALT (SGPT) 26 U/L (16-63); AST (SGOT) 12 U/L (15-37); TOTAL BILIRUBIN 0.3 mg/dL (0.2-1.0); TOTAL PROTEIN 8.6 g/dL (6.4-8.2)
[2017-10-22] MEDS: PIPERACILLIN/TAZOBACTAM 4.5 GM in IV NORMAL SALINE 100ML 100 ML IV (19:24)
[2017-10-22] MEDS: VANCOMYCIN 2 GM in IV DEXTROSE 5 %-0.45 % NACL 500 ML IV (19:44)
== END 2017-10-22 22:17 | disposition home or self-care (01) ==
LOC: ER 17:58
DX: L03.116 Cellulitis of left lower limb (principal); E11.65 Type 2 diabetes mellitus with hyperglycemia; I10 Essential (primary) hypertension; J45.909 Unspecified asthma, uncomplicated; Z91.013 Allergy to seafood; Z88.8 Allergy status to other drugs, medicaments and biological substances
CPT/HCPCS: 36415; 73630; 80053; 85025; 87040; 96365; 96366; 96368; 99285-25; J2543; J3370

== ENCOUNTER 2019-06-15 07:48 | Emergency (ER) | payer SELFPAY ==
[~2019-06-15] VITALS: Ht 190.5 cm; Wt 136.1 kg
[~2019-06-15 07:48] MED LIST changes: +ALBU2.5V8 INH; +AMLO10TA4 PO; +AMLO10TA8 PO; +AMOX1TAB10 PO; +AMOX1TAB11 PO; +AMOX1TAB61 PO; +ASPI325T11 PO; +ATOR10TA60 PO; +CEFP200T PO; +ERTA1VIA IJ; +FLUC200T PO; +FLUT1DIS IH; +Fluconazole PO; +HYDR12.575 PO; +INSU100C4 SQ; +INSU100I17 SQ; +INSU100V13 SQ; +LISI-130 PO; +LISI-334 PO; +LISI10TA2 PO; +METO10TA PO; +METO25TA4 PO; +METO50TA6 PO; +OXYC1TAB15 PO; +Pantoprazole PO; +SINGULAIR INH
[2019-06-15] MEDS ORDERED: fentaNYL PF VIAL 100 MCG/2 ML VIAL IVP ONE ×2 (09:15→11:00)
[2019-06-15] MEDS ORDERED: PROCHLORPERAZINE 10 MG/2 ML VIAL. IV ONE (09:15)
[2019-06-15] MEDS ORDERED: IV NORMAL SALINE 1000ML BAG 1,000 ML IV ONE ×2 (09:15→11:00)
--- NOTE | 2019-06-15 09:26 | PHYS DOC ---
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 Patient states that early this morning began having a headache that is behind both of his eyes. Patient states he does have migraines and this feels slightly like a migraine but is not the worst headache he's ever felt. Patient states he is worried because the last time he had pain like this he had a stroke. Patient states from that stroke he is blind in the right eye and has some memory problems. Patient states that he also has dizziness and t ingling in hands and fingers. Patient states he does not have neuropathy from his diabetes. Patient also states that the last couple weeks he said some shortness of air but that he has asthma and has not had any medication for his asthma. Patient states she's also been coughing but is nonproductive. He states he has chills but denies fevers. He rates his pain a 10 out 10. Review of Systems Review of Systems Constitutional: fever or chills [] Eyes: Denies change in visual acuity, redness, or eye pain [] HENT: Denies nasal congestion. sore throat [] Respiratory: cough or shortness of breath [] Cardiovascular: No additional information not addressed in HPI [] GI: abdominal pain, nausea, vomiting, denies bloody stools or diarrhea [] : Denies dysuria or hematuria [] Musculoskeletal: Bodyaches. Denies back pain or joint pain [] Integument: Denies rash or skin lesions [] Neurologic: headache, tingling. denies focal weakness or sensory changes [] All other systems were reviewed and found to be within normal limits, except as documented in this note. Current Medications Current Medications Current Medications Medications (Trade) Dose Ordered Sig/Mike Start Time Stop Time Status Last Admin Dose Admin Fentanyl Citrate (Fentanyl 2ml Vial) 50 mcg 1X ONCE 06/15/19 11:00 06/15/19 11:01 DC 06/15/19 11:00 50 MCG Info (CONTRAST GIVEN -- Rx MONITORING) 1 each PRN DAILY PRN 06/15/19 10:30 06/17/19 10:29 Iohexol (Omnipaque 300 Mg/ml) 75 ml 1X ONCE 06/15/19 10:30 06/15/19 10:31 DC 06/15/19 10:28 75 ML Metoclopramide HCl (Reglan Vial) 10 mg 1X ONCE 06/15/19 11:00 06/15/19 11:01 DC 06/15/19 11:00 10 MG Prochlorperazine Edisylate (Compazine) 10 mg 1X ONCE 06/15/19 09:15 06/15/19 09:16 DC 06/15/19 09:15 10 MG Sodium Chloride 1,000 ml @ 1,000 mls/hr 1X ONCE 06/15/19 11:00 06/15/19 11:59 DC Allergies Allergies Allergies Coded Allergies Type Severity Reaction Last Updated Verified shellfish derived Allergy Severe Anaphylaxis 05/12/19 Yes metformin Allergy Intermediate 05/12/19 Yes Physical Exam Physical Exam Constitutional: Well developed, well nourished, no acute distress, non-toxic appearance. [] HENT: Normocephalic, atraumatic, bilateral external ears normal, oropharynx moist, no oral exudates, nose normal. [] Eyes: PERRLA, EOMI, conjunctiva normal, no discharge. [] Neck: Normal range of motion, no tenderness, supple, no stridor. [] Cardiovascular:Heart rate regular tachy rhythm, no murmur [] Lungs & Thorax: Bilateral breath sounds clear to auscultation [] Abdomen: Bowel sounds normal, soft, no tenderness, no masses, no pulsatile migdalia s. [] Skin: Left bottom of foot ulcer. Warm, dry, no erythema, no rash. [] Back: No tenderness, no CVA tenderness. [] Extremities: No tenderness, no cyanosis, no clubbing, ROM intact, Bilateral lower extremity right 3+ edema and 2+ left lower extremity. [] Neurologic: Alert and oriented X 3, normal motor function, normal sensory function, no focal deficits noted. [] Psychologic: Affect normal, judgement normal, mood normal. [] Current Patient Data Vital Signs Vital Signs Date Time Temp Pulse Resp B/P (MAP) Pulse Ox O2 Delivery O2 Flow Rate FiO2 11/24/19 11:00 18 06/15/19 08:37 99.6 104 116/58 (77) 98 Room Air 99.6 Lab Values Laboratory Tests Test 06/15/19 08:53 06/15/19 09:25 06/15/19 09:26 06/15/19 10:35 Glucose (Fingerstick) 81 mg/dL (70-99) White Blood Count 8.9 x10^3/uL (4.0-11.0) Red Blood Count 5.24 x10^6/uL (4.30-5.70) Hemoglobin 13.3 g/dL (13.0-17.5) Hematocrit 39.9 % (39.0-53.0) Mean Corpuscular Volume 76 fL (79-100) L Mean Corpuscular Hemoglobin 25 pg (25-35) Mean Corpuscular Hemoglobin Concent 33 g/dL (31-37) Red Cell Distribution Width 15.2 % (11.5-14.5) H Platelet Count 257 x10^3/uL (140-400) Neutrophils (%) (Auto) 85 % (31-73) H Lymphocytes (%) (Auto) 7 % (24-48) L Monocytes (%) (Auto) 7 % (0-9) Eosinophils (%) (Auto) 0 % (0-3) Basophils (%) (Auto) 0 % (0-3) Neutrophils # (Auto) 7.6 x10^3/uL (1.8-7.7) Lymphocytes # (Auto) 0.6 x10^3/uL (1.0-4.8) L Monocytes # (Auto) 0.6 x10^3/uL (0.0-1.1) Eosinophils # (Auto) 0.0 x10^3/uL (0.0-0.7) Basophils # (Auto) 0.0 x10^3/uL (0.0-0.2) Segmented Neutrophils % 88 % (35-66) H Lymphocytes % 7 % (24-48) L Atypical Lymphocytes % (Manual) 1 % (0-0) H Monocytes % 4 % (0-10) Platelet Estimate Adequate (ADEQUATE) Prothrombin Time 13.4 SEC (11.7-14.0) Prothrombin Time INR 1.1 (0.8-1.1) Sodium Level 135 mmol/L (136-145) L Potassium Level 3.5 mmol/L (3.5-5.1) Chloride Level 99 mmol/L (98-107) Carbon Dioxide Level 29 mmol/L (21-32) Anion Gap 7 (6-14) Blood Urea Nitrogen 13 mg/dL (8-26) Creatinine 1.0 mg/dL (0.7-1.3) Estimated GFR (Cockcroft-Gault) 101.2 BUN/Creatinine Ratio 13 (6-20) Glucose Level 89 mg/dL (70-99) Lactic Acid Level 1.6 mmol/L (0.4-2.0) Calcium Level 9.3 mg/dL (8.5-10.1) Total Bilirubin 0.4 mg/dL (0.2-1.0) Aspartate Amino Transferase (AST) 46 U/L (15-37) H Alanine Aminotransferase (ALT) 57 U/L (16-63) Alkaline Phosphatase 136 U/L (46-116) H Troponin I Quantitative < 0.017 ng/mL (0.000-0.055) WT-Qyl-H-Type Natriuretic Peptide 92 pg/mL (0-124) Total Protein 8.1 g/dL (6.4-8.2) Albumin 3.1 g/dL (3.4-5.0) L Albumin/Globulin Ratio 0.6 (1.0-1.7) L Lipase 91 U/L (73-393) Influenza Type A Antigen Negative (NEGATIVE) Influenza Type B Antigen Negative (NEGATIVE) Group A Streptococcus Rapid Negative (NEGATIVE) Laboratory Tests 06/15/19 09:25 Laboratory Tests 06/15/19 09:25 EKG EKG Sinus Tachycardia and no STEMI[] Interpretation Time: [address] Kurtz Radiology/Procedures Radiology/Procedures [] Impressions: [facility] [address] [place] [address] IMAGING REPORT Signed PATIENT: BAILEY JOHNSON ACCOUNT: [id number] : 1980 LOCATION: ER AGE: 38 SEX: M EXAM STATUS: REG ER ORD. PHYSICIAN: SHERITA HALEY APRN REASON: ABD PAIN, NAUSEA, VOMITING X 1 DAY PROCEDURE: CT ABD PELV W/ IV CONTRST ONLY CT abdomen pelvis with contrast dated 06/15/2019. No comparison available. Clinical data indication: Abdominal pain nausea vomiting for one day. TECHNIQUE: Contiguous axial imaging of the abdomen and pelvis performed after the administration of 75 cc Omnipaque 300. One or more of the following individualized dose reduction techniques were utilized for this examination: 1. Automated exposure control 2. Adjustment of the mA and/or kV according to patient size 3. Use of iterative reconstruction technique. FINDINGS: Limited images of lung bases show minimal dependent atelectasis in the lower lobes. Heart size is within normal limits. No pleural or pericardial effusion. Liver, spleen, pancreas, adrenal glands, gallbladder and kidneys are unremarkable. No hydronephrosis. Unopacified GI tract is normal in caliber and contour. No focal bowel wall thickening. No inflammatory stranding in the mesentery. The appendix is normal in caliber. No ascites or lymphadenopathy. There is some hazy increased attenuation of the central mesenteric and peripancreatic fat, improved from prior exam. Images of pelvis show nondistended urinary bladder. Prostate gland is upper limits of normal in size. No free pelvic fluid or pelvic lymphadenopathy. There are borderline enlarged bilateral inguinal lymph nodes measuring up to 1.4 cm short axis on the right, nonspecific. Bone windows show no acute findings. Mild lower lumbar spondylosis. IMPRESSION: 1. No acute abnormality of abdomen or pelvis. Normal appendix. 2. Minimal hazy increased attenuation in the peripancreatic and mesenteric fat, improved from the 2018 exam. This is likely the sequela of prior episodes of pancreatitis. 3. Borderline enlarged inguinal lymph nodes, nonspecific. Electronically signed by: Sharan Medina MD (06/15/2019 10:26 AM) [facility] DICTATED and SIGNED BY: SHARAN MEDINA MD DATE: 06/15/19 1026 [facility] [address] [place], [place] [id number] IMAGING REPORT Signed PATIENT: BAILEY JOHNSON ACCOUNT: [id number] : 1980 LOCATION: ER AGE: 38 SEX: M EXAM STATUS: REG ER ORD. PHYSICIAN: SHERITA HALEY APRN REASON: soa, hx of diabetes. done in wheelchair due to foot wound, performed AP PROCEDURE: CHEST PA & LATERAL EXAM: CHEST 2 VIEWS. HISTORY: Shortness of breath. COMPARISON: 03/17/2019. FINDINGS: Frontal and lateral views of the chest are obtained. There are no confluent infiltrates. There is no pneumothorax or pleural effusion. The heart is not enlarged. IMPRESSION: 1. No confluent infiltrates. Electronically signed by: Jackie Milian MD (06/15/2019 10:16 AM) [facility] DICTATED and SIGNED BY: LIDA MILIAN MD DATE: 06/15/19 1016 [facility] [address] [place] [address] IMAGING REPORT Signed PATIENT: BAILEY JOHNSON ACCOUNT: [id number] : 1980 LOCATION: ER AGE: 38 SEX: M EXAM STATUS: REG ER ORD. PHYSICIAN: SHERITA HALEY APRN REASON: headache PROCEDURE: CT HEAD WO CONTRAST EXAM: CT HEAD WITHOUT CONTRAST. HISTORY: Headache. TECHNIQUE: Computed tomography of the head was performed without intravenous contrast. One or more of the following individualized dose reduction techniques were utilized for this examination: 1. Automated exposure control. 2. Adjustment of the mA and/or kV according to patient size. 3. Use of iterative reconstruction technique. COMPARISON: 07/02/2018. FINDINGS: There is no intracranial hemorrhage. Bey-white differentiation is preserved. The ventricles are normal in size and position. The visualized paranasal sinuses appear clear. The orbits are unremarkable. The temporal bones are unremarkable. The calvarium reveals no suspicious lesions. IMPRESSION: 1. No acute intracranial findings. Electronically signed by: Jackie Milian MD (06/15/2019 10:16 AM) [facility] DICTATED and SIGNED BY: LIDA MILIAN MD DATE: 06/15/19 1016 Course & Med Decision Making Course & Med Decision Making Alert and oriented. Speaks in full clear sentences. Patient has 3+ edema in the right lower extremity and 2+ in the left lower extremity. Patient currently has a left bottom of foot diabetic ulcer stage II-III that he is been seeing Dr. Casarez for wound care. Patient states he finished IV antibiotics for it one month ago and finished oral antibiotics 1 week ago. Lungs are clear in all station all lobes. Abdomen is soft and nontender. Patient denies diarrhea or constipation. Denies blood in his vomit. Patient is tachy and has a elevated temperature at 99.6. Patient states he has generalized abdomeinal cramping. Patient staes he does have photophobia. Stroke scale negative. Skin pink warm and dry. Patient denies any chest pain, syncope, weakness, dysuria, neck pain or back pain, visual changes. Patient blood sugar in the emergency room is 81. Patient states he last took his insulin at 3:00 this morning. Patient states he took no other medications today. Patient has a history of diabetes, hypertension, stroke, asthma, migraines, sepsis, partial left foot amputation, right fifth toe amputation, diabetic wounds. 1020: Patient states his headache is a 7 out of 10 and he still nauseated. I have ordered Reglan in more fentanyl for the patient. 1100: Chest x-ray, CT abdomen pelvis, CT head showed no acute findings. Blood work is unremarkable. Influenza is negative, negative strep. 1200: Patient states he is feeling much better. Patient has been by mouth challenged has not vomited. Patient states he has no abdominal pain. Patient states he feels a headache but is at a 6 and is tolerable. Patient is sleeping upon walking into the room. Dragon Disclaimer Dragon Disclaimer This electronic medical record was generated, in whole or in part, using a voice recognition dictation system. Departure Departure Impression: Primary Impression: Headache Additional Impression: Nausea & vomiting Disposition: 01 HOME, SELF-CARE Condition: STABLE Referrals: NO PCP (PCP) Patient Instructions: Migraine Headache, Nausea and Vomiting Additional Instructions: Follow-up with primary care provider and wound care. Drink plenty of fluids. Slowly advance her diet. Take medication as prescribed. Scripts Ondansetron (ONDANSETRON ODT) 4 Mg Tab.rapdis 1 TAB PO PRN Q6-8HRS, #16 TAB Prov: SHERITA HALEY CARD PLAYER 06/15/19 Problem Qualifiers Primary Impression: Headache Headache type: unspecified Headache chronicity pattern: acute headache Intractability: not intractable Qualified Codes: R51 - Headache Additional Impression: Nausea & vomiting Vomiting type: unspecified Vomiting Intractability: non-intractable Qualified Codes: R11.2 - Nausea with vomiting, unspecified SHERITA HALEY CARD PLAYER Jun 15, 2019 09:26
[2019-06-15 09:54] LABS: CALCIUM 9.3 mg/dL (8.5-10.1); GFR 101.2; POTASSIUM 3.5 mmol/L (3.5-5.1)
[2019-06-15 10:00] LABS: ALBUMIN 3.1 g/dL (3.4-5.0); ALBUMIN/GLOBULIN RATIO 0.6 (1.0-1.7); TOTAL BILIRUBIN 0.4 mg/dL (0.2-1.0); TOTAL PROTEIN 8.1 g/dL (6.4-8.2)
[2019-06-15 10:09] LABS: INFLUENZA A PATIENT NEGATIVE (NEGATIVE); INFLUENZA B PATIENT NEGATIVE (NEGATIVE)
[2019-06-15 10:17] LABS: BASO % 0 % (0-3); EOS % 0 % (0-3); HEMATOCRIT 39.9 % (39.0-53.0); HEMOGLOBIN 13.3 g/dL (13.0-17.5); LYMPH # 0.6 x10^3/uL (1.0-4.8); LYMPH % 7 % (24-48); MEAN CORPUSCULAR HEMOGLOBIN 25 pg (25-35); MEAN CORPUSCULAR HGB CONC 33 g/dL (31-37); MEAN CORPUSCULAR VOLUME 76 fL (79-100); MONO # 0.6 x10^3/uL (0.0-1.1); MONO % 7 % (0-9); NEUT # 7.6 x10^3/uL (1.8-7.7); NEUT % 85 % (31-73); PLATELET COUNT 257 x10^3/uL (140-400); RED BLOOD COUNT 5.24 x10^6/uL (4.30-5.70); RED CELL DISTRIBUTION WIDTH 15.2 % (11.5-14.5); WHITE BLOOD COUNT 8.9 x10^3/uL (4.0-11.0)
--- NOTE | 2019-06-15 10:18 | RAD ---
EXAM: CT HEAD WITHOUT CONTRAST. HISTORY: Headache. TECHNIQUE: Computed tomography of the head was performed without intravenous contrast. One or more of the following individualized dose reduction techniques were utilized for this examination: 1. Automated exposure control. 2. Adjustment of the mA and/or kV according to patient size. 3. Use of iterative reconstruction technique. COMPARISON: 07/02/2018. FINDINGS: There is no intracranial hemorrhage. Bey-white differentiation is preserved. The ventricles are normal in size and position. The visualized paranasal sinuses appear clear. The orbits are unremarkable. The temporal bones are unremarkable. The calvarium reveals no suspicious lesions. IMPRESSION: 1. No acute intracranial findings. Electronically signed by: Jackie Milian MD (06/15/2019 10:16 AM) [facility]
--- NOTE | 2019-06-15 10:19 | RAD ---
EXAM: CHEST 2 VIEWS. HISTORY: Shortness of breath. COMPARISON: 03/17/2019. FINDINGS: Frontal and lateral views of the chest are obtained. There are no confluent infiltrates. There is no pneumothorax or pleural effusion. The heart is not enlarged. IMPRESSION: 1. No confluent infiltrates. Electronically signed by: Jackie Milian MD (06/15/2019 10:16 AM) [facility]
[2019-06-15 10:28] LABS: PROTHROMBIN TIME PATIENT 13.4 SEC (11.7-14.0)
--- NOTE | 2019-06-15 10:28 | RAD ---
CT abdomen pelvis with contrast dated 06/15/2019. No comparison available. Clinical data indication: Abdominal pain nausea vomiting for one day. TECHNIQUE: Contiguous axial imaging of the abdomen and pelvis performed after the administration of 75 cc Omnipaque 300. One or more of the following individualized dose reduction techniques were utilized for this examination: 1. Automated exposure control 2. Adjustment of the mA and/or kV according to patient size 3. Use of iterative reconstruction technique. FINDINGS: Limited images of lung bases show minimal dependent atelectasis in the lower lobes. Heart size is within normal limits. No pleural or pericardial effusion. Liver, spleen, pancreas, adrenal glands, gallbladder and kidneys are unremarkable. No hydronephrosis. Unopacified GI tract is normal in caliber and contour. No focal bowel wall thickening. No inflammatory stranding in the mesentery. The appendix is normal in caliber. No ascites or lymphadenopathy. There is some hazy increased attenuation of the central mesenteric and peripancreatic fat, improved from prior exam. Images of pelvis show nondistended urinary bladder. Prostate gland is upper limits of normal in size. No free pelvic fluid or pelvic lymphadenopathy. There are borderline enlarged bilateral inguinal lymph nodes measuring up to 1.4 cm short axis on the right, nonspecific. Bone windows show no acute findings. Mild lower lumbar spondylosis. IMPRESSION: 1. No acute abnormality of abdomen or pelvis. Normal appendix. 2. Minimal hazy increased attenuation in the peripancreatic and mesenteric fat, improved from the 2018 exam. This is likely the sequela of prior episodes of pancreatitis. 3. Borderline enlarged inguinal lymph nodes, nonspecific. Electronically signed by: Sharan Medina MD (06/15/2019 10:26 AM) [facility]
[2019-06-15] MEDS ORDERED: CONTRAST GIVEN. MC PRN (10:30)
[2019-06-15] MEDS ORDERED: IOHEXOL 300 MG/ML 100ML VIAL. IV ONE (10:30)
[2019-06-15] MEDS ORDERED: METOCLOPRAMIDE HCL 10 MG/2 ML VIAL. IVP ONE (11:00)
[2019-06-15 11:15] LABS: % ATYL 1 % (0-0); % LYMPHS 7 % (24-48); % MONOS 4 % (0-10); % SEGS 88 % (35-66)
[2019-06-15 11:16] LABS: PLT ESTIMATE ADEQUATE (ADEQUATE)
[2019-06-15] MEDS ORDERED: ONDA4TAB12 PO (12:04)
[2019-06-15] MEDS ORDERED: SUMAtriptan SUCC 6 MG/0.5 ML VIAL. SQ ONE (12:15)
[2019-06-15 12:25] VITALS: BP 171/86
--- NOTE | 2019-06-16 08:25 | EKG ---
[facility] [address] [place] [address] Test Date: 2019-06-15 Test Time: 09:34:21 Pat Name: BAILEY JOHNSON Department: Room: Gender: Television Camera Operator: : 1980 Requested By: SHERITA HALEY Order Number: [id number] Reading MD: Richard Nielsen Measurements Intervals Cruger Rate: P: SD: QRS: QRSD: T: QT: QTc: Interpretive Statements SINUS TACHYCARDIA Electronically Signed On 06-16-2019 14:12:59 [facility] by Richard Nielsen
== END 2019-06-15 12:27 | disposition home or self-care (01) ==
LOC: ER 07:48
DX: R11.2 Nausea with vomiting, unspecified (principal); R42 Dizziness and giddiness; R10.84 Generalized abdominal pain; H54.61 Unqualified visual loss, right eye, normal vision left eye; J45.909 Unspecified asthma, uncomplicated; E11.9 Type 2 diabetes mellitus without complications; I10 Essential (primary) hypertension; G43.909 Migraine, unspecified, not intractable, without status migrainosus; Z91.013 Allergy to seafood; Z88.8 Allergy status to other drugs, medicaments and biological substances
CPT/HCPCS: 36415; 70450; 71046; 74177; 80053; 82962; 83605; 83690; 83880; 84484; 85007; 85025; 85610; 87040; 87070; 87804; 87880; 93005; 96361; 96374; 96375; 96376; 99285; J0780; J2765; J3010; J7030; Q9967

== ENCOUNTER 2021-08-05 13:20 | Emergency (ER) | payer SELFPAY ==
[~2021-08-05] VITALS: Ht 190.5 cm; Wt 130.0 kg
[~2021-08-05 13:20] MED LIST changes: +AMLO-187 PO; +AMLO-354 PO; -AMLO10TA8 PO; -ERTA1VIA IJ; +ERTA1VIA16 IJ; +HYDR-2145 PO; +HYDR-2761 PO; +INSU100V31 SQ; -LISI-334 PO; +LISI10TA16 PO; -LISI10TA2 PO; +LISI20TA18 PO; +METO-239 PO; +ONDA4TAB12 PO
--- NOTE | 2021-08-05 14:41 | PHYS DOC ---
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 Patient states home health nurse recommended he come to the emergency department for PICC line removal. Patient states he had the PICC line placed during an admission at [facility] on July 08, 2021, was sent home with line for ongoing antibiotic treatment of a diabetic ulcer to the right foot. Patient states the home health nurse cleansed treated and dressed his diabetic foot ulcer, states it is looking much better now, ports ongoing pain of this foot ulcer, reports he is out of his Percocet and would like to have it refilled. Patient denies recent fever or chills, chest pains, chest palpitations, dizziness, headaches, abdominal pain, nausea, vomiting, diarrhea patient denies other physical complaints or physical concerns. Review of Systems: Review of Systems: 14 body systems of review of systems have been reviewed. See HPI for pertinent positives and negative responses, otherwise all other systems are negative, nonpertinent or noncontributory. Constitutional: Negative except as outlined in HPI above. Skin: Negative except as outlined in HPI above. Eyes: Negative except as outlined in HPI above. HENT: Negative except as outlined in HPI above. Respiratory: Negative except as outlined in HPI above. Cardiovascular: Negative except as outlined in HPI above. GI: Negative except as outlined in HPI above. : Negative except as outlined in HPI above. Musculoskeletal: Negative except as outlined in HPI above. Integument: Negative except as outlined in HPI above. Neurologic: Negative except as outlined in HPI above. Endocrine: Negative except as outlined in HPI above. Lymphatic: Negative except as outlined in HPI above. Psychiatric: Negative except as outlined in HPI above. Heart Score: C/O Chest Pain: No Risk Factors: Risk Factors: DM, Current or recent (<one month) smoker, HTN, HLP, family history of CAD, obesity. Risk Scores: Score 0 - 3: 2.5% MACE over next 6 weeks - Discharge Home Score 4 - 6: 20.3% MACE over next 6 weeks - Admit for Clinical Observation Score 7 - 10: 72.7% MACE over next 6 weeks - Early Invasive Strategies Allergies: Allergies: Allergies Coded Allergies Type Severity Reaction Last Updated Verified shellfish derived Allergy Severe Anaphylaxis 08/05/21 Yes metformin Allergy Intermediate 08/05/21 Yes naproxen Allergy Intermediate 08/05/21 Yes Physical Exam: PE: Constitutional: Well developed, well nourished, no acute distress, non-toxic appearance. 40-year-old male in no apparent distress. HENT: Normocephalic, atraumatic. Eyes: Conjunctiva normal, no discharge. Neck: Normal range of motion, no stridor. Cardiovascular: No cyanosis appreciated, distal cap refill less than 2 seconds. Heart sounds S1-S2 consultation for Lungs & Thorax: Patient is in no respiratory distress, no audible adventitious lung sounds appreciated. Lung sounds clear to auscultate all lung brewer. Patient does have a purple-colored dual-lumen central line accessed on anterior right chest, dressing is in place and intact, no erythema or swelling to the insertion site, no drainage appreciated from insertion site. Nonpainful to palpation. Abdomen: Nontender, no abnormalities noted. Skin: Warm, dry, no erythema, no rash. Back: No tenderness, no deformities. Extremities: No tenderness, no cyanosis, no clubbing, ROM intact, no edema. Neurologic: Alert and oriented X 3, normal motor function, normal sensory function, no focal deficits noted. Psychologic: Affect normal, judgement normal, mood normal. Current Patient Data: Vital Signs: Vital Signs Date Time Temp Pulse Resp B/P (MAP) Pulse Ox O2 Delivery O2 Flow Rate FiO2 08/05/21 13:46 98.2 115 15 178/86 (116) 98 Room Air 98.2 EKG: EKG: [] Radiology/Procedures: Radiology/Procedures: [] Course & Med Decision Making: Course & Med Decision Making Pertinent Labs and Imaging studies reviewed. (See chart for details) 40-year-old male, vital signs reviewed, presents to the emergency department for removal of central line and refill of Percocet. Physical examination unremarkable, examination of diabetic foot ulcer deferred as home health nurse completed assessment treatment and dressing which is in place of the right foot, and patient has no complaints of worsening signs and symptoms however does have ongoing pain. Patient reported being sent here by home health nurse for central line removal. Called greenhouse florist Oralia KEVIN who stated this is done in the vascular lab. Called and discussed patient case with vascular lab employee Criss KEVIN who states she will come and remove central line, discussed with Criss KEVIN that a page has been sent to infectious disease physician Dr. Casarez to review case and confirm removal order prior to removal. We will call vascular lab after discussion with Dr. Casarez. Upon chart review, tunneled central line was placed by Dr. Francisco Javier Arriaga on 07/08/[address] Casarez on telephone, Dr. Casarez states central line can be removed as outpatient antibiotic regimen has been satisfied. Called and discussed with Criss KEVIN from vascular lab discussions with Dr. Casarez that it is okay to remove central line, Criss KEVIN requested IR consult, states she will come over for line removal procedure. Discussed with patient that interventional radiology provider will come to the emergency department today for removal, patient is amenable to ED planning. Interventional radiology staff Criss KEVIN reports procedure consents were reviewed with the patient and completed prior to removal, tunneled line removed without difficulties, dressing in place, discussed post tunneled line removal instructions to stay in upright seated position or standing position for at least 2 hours, watch for signs of bleeding, return to emergency department precautions were reviewed with patient by interventional radiology staff. Interventional radiology staff recommended evaluation in the emergency department for signs of bleeding for 1/2-hour prior to discharge. Upon reevaluation of the patient, patient denies any pain or discomfort to his chest or site of removed central line, dressing is in place, no signs of bleeding, there is a transparent dressing over gauze to the right chest, clean and dry, no signs of drainage or infectious process appreciated., Reviewed with patient interventional radiology recommendations of upright seated or standing position for 2 hours, will evaluate for at least 30 minutes in ED prior to discharge, patient is asking for pain medication related to his ongoing diabetic foot ulcer pain. Will give pain medication in the ED. we will evaluate periodically over the next 30 minutes and consider discharge versus further evaluation time, patient is amenable to ED planning. After 45 minutes from removal, reevaluation of patient found anterior right- sided dressing intact, gauze remains white, no oozing of blood appreciated, no signs of infectious process, no pain to palpation, discussed with patient we will discharged home, continue upright seated position or standing position for the next hour and a half at least, patient reports he has several things to do today and has no reason to lay down, reports this is his third central line and he feels comfortable taking care of this. Will discharge to home, continue fo llow-up with infectious disease and home health care evaluations of diabetic foot ulcer. Will prescribe pain medication, discussed with patient strict follow-up with pain management for ongoing chronic pains. Patient gave verbal understanding of and is amenable to ED discharge planning. Discussed with the patient all findings and diagnostic testing as well as the need to follow-up with their primary care provider for further evaluation and treatment or return to the ED if any new or worsening symptoms. Strict return precautions were also discussed at length, the patient voiced understanding and agreement with the discharge planning. The patient was nontoxic in appearance, in no apparent distress, and hemodynamically stable at the time of disposition. Daniel Disclaimer: Daniel Disclaimer: This electronic medical record was generated, in whole or in part, using a voice recognition dictation system. Departure Departure Impression: Primary Impression: Encounter for removal of tunneled central venous catheter (CVC) with port Additional Impressions: Right foot pain Diabetic foot ulcer Qualified Codes: E11.621 - Type 2 diabetes mellitus with foot ulcer; L97.519 - Non-pressure chronic ulcer of other part of right foot with unspecified se verity Disposition: 01 HOME / SELF CARE / HOMELESS Condition: GOOD Referrals: FAITH PUCKETT (PCP) ALYSA BEY MD Additional Instructions: You were seen today in the emergency department for removal of your tunneled catheter from your right anterior chest. Your case was discussed with your infectious disease physician Dr. Casarez who stated it was okay to remove your catheter today. Hospital staff from interventional radiology came to your room and removed this catheter without any reported difficulties. You were monitored for 45 minutes in the emergency department to ensure no bleeding or other symptoms arose from catheter removal. You have stated there are no problems since catheter removal, you have also stated that this is your third catheter removal and he feels comfortable taking care of this at home. As we discussed please stay in the upright seated position or standing position for at least 2 hours, return to the emergency department for signs and symptoms of bleeding chest pain, shortness of breath, heart palpitation or other concerns. He had asked for a prescription for Percocet for your diabetic foot pain, I will prescribe you 6 tablets of pain medication, it is very important that you follow-up with a pain management physician to manage your ongoing diabetic foot pain. I have recommended a spray painter helper Dr. Alysa Bey, please call today or Sunday for an appointment for evaluation and treatment of your ongoing pains. Return to the emergency department for worsening symptoms other concerns. Thank you for visiting our Emergency Department. It was a pleasure taking care of you today in the emergency department and we appreciate you t rusting us with your care. If any additional problems come up don't hesitate to return to visit us. Please follow up with your primary care provider so they can plan additional care if needed and know about the problem that you had. If symptoms worsen come back to the Emergency Department. Any concerning symptoms that start such as chest pain, shortness of air, weakness or numbness on one side of the body, running high fevers or any other concerning symptoms return to the ER. Scripts Hydrocodone Bit/Acetaminophen (HYDROCODONE-APAP 5-325 ) 1 Tab Tablet 1 TAB PO PRN Q6HRS PRN for PAIN, #6 TAB 0 Refills Prov: HELADIO HERNANDEZ APRN 08/05/21 HELADIO HERNANDEZ APRN Aug 05, 2021 14:41
[2021-08-05] MEDS ORDERED: LIDOCAINE 1%/EPI 1:100,000 20 ML VIAL. ONE (15:03)
[2021-08-05] MEDS ORDERED: LIDOCAINE 1%/EPI 1:100,000 20 ML VIAL. INJ ONE (15:45)
[2021-08-05] MEDS ORDERED: oxyCODONE/APAP 5/325 1 TAB TABLET PO ONE (15:45)
--- NOTE | 2021-08-05 15:49 | RAD ---
PROCEDURE: REMOVAL OF A TUNNELED CENTRAL VENOUS CATHETER (CPT 10324). HISTORY: patient referred for tunneled Central venous catheter removal after finishing treatment SEDATION: None needed. TECHNIQUE: Prior to beginning the procedure, [place] [address] Protocol was used to confirm the patient's anthony ntity and planned procedure. Sterile barriers including cap, mask, hand hygiene, sterile gloves, jono rile gown, large sterile drape, and cutaneous antisepsis were used. The skin adjacent to the right chest wall catheter entry site was sterilely prepped, draped, and infi ltrated with lidocaine. Blunt dissection was used to free the catheter cuff. The catheter was then removed and pressure held at the site to obtain hemostasis. A sterile dressing was then applied. ESTIMATED BLOOD LOSS: Less than 30 mL. COMPLICATIONS: None. FINDINGS: The catheter exit site showed no visible sign of infection. The catheter tip was sent for cultures. IMPRESSION: Successful removal of the tunneled right internal jugular venous catheter. Electronically signed by: Francisco Javier Arriaga MD (08/05/2021 3:47 PM) [id number]
[2021-08-05] MEDS ORDERED: HYDR-2761 PO (16:21)
[2021-08-05 16:31] VITALS: BP 169/87
== END 2021-08-05 16:32 | disposition home or self-care (01) ==
LOC: ER 13:20
DX: Z45.2 Encounter for adjustment and management of vascular access device (principal); E11.621 Type 2 diabetes mellitus with foot ulcer; L97.519 Non-pressure chronic ulcer of other part of right foot with unspecified severity; J45.909 Unspecified asthma, uncomplicated; E11.9 Type 2 diabetes mellitus without complications; I10 Essential (primary) hypertension; G43.909 Migraine, unspecified, not intractable, without status migrainosus; E11.40 Type 2 diabetes mellitus with diabetic neuropathy, unspecified; Z88.5 Allergy status to narcotic agent; Z91.013 Allergy to seafood; Z88.8 Allergy status to other drugs, medicaments and biological substances
CPT/HCPCS: 36589; 99285; J3490; 99283